=== PATIENT | female | born 1940 | race Caucasian/White ===

== ENCOUNTER 2016-12-24 18:56 | Inpatient (IN) | payer OTHER, MEDICARE ==
[~2016-12-24] VITALS: Ht 167.6 cm; Wt 69.4 kg
--- NOTE | 2016-12-24 20:27 | ED GENERAL ADULT ---
History of Present Illness General Chief Complaint: General Adult Stated Complaint: AGUSTINA ARIAS FOR ABNORMAL LABS Source: patient Exam Limitations: no limitations Vital Signs & Intake/Output Vital Signs & Intake/Output Vital Signs Date Time Temp Pulse Resp B/P Pulse O2 O2 Flow FiO2 Ox Delivery Rate 12/24 2305 97.6 90 18 124/60 96 Room Air 12/241 97 Room Air 12/24 2129 99.4 87 18 111/57 97 Room Air 12/242 97.9 98 18 110/66 96 Room Air Allergies Coded Allergies: azithromycin (From ZITHROMAX) (Severe, LIVER 12/24/16) Uncoded Allergies: IV CONTRAST (Severe, SIMON 12/24/16) Triage Note: STATES THAT SHE WENT TO DR LAST WEEK DUE TO COLD SYMPTOMS. COMPLAINS OF FEELING VERY TIRED, HAD BLOOD WORK AND THEY CALLED HER TONIGHT AND TOLD HER TO COME TO ER DUE TO HEMOGLOBIN 4 AND WBC 49243. PT DENIES BLOOD IN STOOL, Triage Nurses Notes Reviewed? yes Onset: Abrupt Duration: day(s):, week(s):, constant Timing: recent history Injury Environment: home No Modifying Factors: none HPI: 76-year-old female comes into emergency room for further evaluation after being sent in by her primary care doctor for abnormal labs. Patient reports that she saw her primary care doctor for runny nose and congestion last week. She ended up getting outpatient blood work which showed that she was severely anemic and her white blood cell count was high. Patient reports that she just been feeling generally weak and tired. Denies any focal pain of chest pain shortness of breath abdominal pain. Patient does admit to having some heart palpitations. Patient reports that she's been anemic in the past but her hemoglobin is always been around 9. Denies any blood in her stool. Denies any fever chills vomiting. Denies any other associated symptoms. (ELIANA CRAFT,MARCO) Reconcile Medications Iron,Carbonyl (Feosol) 45 MG TABLET 65 MG PO D BLOOD HEALTH (Reported) (MORENA QUINTANA,TERRELL Koo) Past History Travel History Traveled to [place] past 21 day No Medical History Any Pertinent Medical History? 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 No (MARCO WOODY) Review of Systems Review of Systems Constitutional: Reports: see HPI. EENTM: Reports: no symptoms. Respiratory: Reports: no symptoms. Cardiovascular: Reports: see HPI. GI: Reports: no symptoms. Genitourinary: Reports: no symptoms. Musculoskeletal: Reports: no symptoms. Skin: Reports: no symptoms. Neurological/Psychological: Reports: no symptoms. Hematologic/Endocrine: Reports: no symptoms. Immunologic/Allergic: Reports: no symptoms. All Other Systems: Reviewed and Negative (MARCO WOODY) Physical Exam Physical Exam General Appearance: well developed/nourished, no apparent distress, alert, awake Head: atraumatic, normal appearance Eyes: Bilateral: normal appearance, EOMI. Ears, Nose, Throat: normal pharynx, normal ENT inspection, hearing grossly normal Neck: normal inspection, full range of motion Respiratory: normal breath sounds, no respiratory distress Cardiovascular: regular rate/rhythm Gastrointestinal: soft Back: normal inspection, normal range of motion Extremities: normal inspection Neurologic/Psych: awake, alert, oriented x 3, normal gait, normal mood/affect Skin: intact, normal color Core Measures ACS in differential dx? No CVA/TIA Diagnosis: No Severe Sepsis Present: No Septic Shock Present: No (MARCO WOODY) Progress Differential Diagnoses I considered the following diagnoses in my evaluation of the patient: Iron deficiency anemia, anemia chronic disease, aplastic anemia, GI bleed, electrolyte imbalance, thyroid dysfunction, Plan of Care: Orders Procedure Date/time Status TROPONIN LEVEL 12/25 599 Active CBC WITHOUT DIFFERENTIAL 12/25 599 Active BASIC ELECTROLYTES PLUS BUN&CR 12/25 599 Active Regular Diet 12/24 D Active EKG 12/24 2355 Active Pathway - chart 12/24 2318 Active Pathway - chart 12/24 2317 Active House Staff 12/24 2317 Active Code Status 12/24 2317 Active Patient Data 12/24 2223 Active BLOOD PRODUCT PICKUP 12/24 2201 Active URINALYSIS 12/24 2200 Complete Intake & Output 12/24 2158 Active LEUKOCYTE POOR (PACKED CELLS) 12/24 2145 Active Admit to inpatient 12/24 2144 Active Add-on Test (ER Only) 12/24 2106 Active Add-on Test (ER Only) 12/24 2049 Active TROPONIN LEVEL 12/24 2049 Active MAGNESIUM 12/24 2049 Active FOLIC ACID 12/24 2049 Active SERUM IRON 12/24 2049 Active VITAMIN B12 12/24 2049 Active Add-on Test (ER Only) 12/24 2048 Active EKG 12/24 2026 Active THYROID STIMULATING HORMONE 12/24 1929 Active TOTAL IRON BINDING CAPACITY 12/24 1929 Active RETICULOCYTE COUNT 12/24 1929 Complete PARTIAL THROMBOPLASTIN TIME 12/24 1929 Complete PROTHROMBIN TIME 12/24 1929 Complete HAPTOGLOBIN 12/24 1929 Active FERRITIN 12/24 1929 Active COMPREHENSIVE METABOLIC PANEL 12/24 1929 Active CBC WITHOUT DIFFERENTIAL 12/24 1929 Complete TYPE & SCREEN (NOT X-MATCH) 12/24 1929 Active Lab Add-on Test 12/24 UNK Active VTE Mechanical Prophylaxis 12/24 UNK Active Hemoccult 12/24 UNK Active EKG 12/24 UNK Active ECHOCARDIOGRAM 12/24 UNK Active Current Medications Sig/Noreen Start time Last Medication Dose Stop Time Status Admin Enoxaparin Sodium 30 MG DAILY 12/25 1000 CANr (Lovenox) Acetaminophen 650 MG Q6P PRN 12/24 2330 UNVr (Tylenol) Laboratory Tests 12/24/162199: Urine Color STRAW, Urine Clarity CLEAR, Urine pH 6.0, Ur Specific [place] <= 1.005, Urine Protein NEG, Urine Ketones NEG, Urine Nitrite NEG, Urine Bilirubin NEG, Urine Urobilinogen 0.2, Ur Leukocyte Esterase SMALL H, Ur Microscopic SEDIMENT EXAMINED, Urine RBC RARE, Urine WBC 1-3 H, Ur Epithelial Cells RARE, Urine Hemoglobin NEG, Urine Glucose NEG 12/24/162049: Haptoglobin Pending 12/24/162049: Anion Gap 8, Estimated GFR > 60, BUN/Creatinine Ratio 25.0, Glucose 97, Calcium 10.5 H, Magnesium 2.2, Iron 205 H, TIBC 359, Ferritin 225.0, Total Bilirubin 1.1, AST 25, ALT 31, Alkaline Phosphatase 56, Troponin I < 0.01, Total Protein 6.5, Albumin 4.4, Globulin 2.1, Albumin/Globulin Ratio 2.1, Vitamin B12 Pending, Folate Pending, TSH 1.780, PT 11.6, INR 1.11, APTT 20 L, CBC w Diff MAN DIFF ORDERED, RBC 1.92 L, MCV 74.6 L, MCH 23.4 L, RDW 20.6 H, MPV 8.2, Segmented Neutrophils 21 L, Band Neutrophils 2, Lymphocytes 69 H, Monocytes 6, Basophils 1, Metamyelocytes 1, Nucleated RBCs 4 H, Platelet Estimate ADEQUATE, Hypochromic-Microcytic 1+, Poikilocytosis 2+, Basophilic Stippling RARE, Anisocytosis 2+, Microcytic Cells 1+, Target Cells 1+, Ovalocytes 1+, [place] Cells FEW, PUBS MCHC 31.4 L, Retic Count 1.67, Fld Total RBCs Counted 100 Initial ED EKG: normal intervals, normal p-waves, normal sinus rhythm, rate (95) , pvcs Comments: 12/24/2016 10:23:26 PM Patient reports that she had a rectal exam performed by her doctor today on a card which showed no blood. Patient does not want to repeat rectal exam here. (MARCO WOODY) Departure Departure Disposition: STILL A PATIENT Condition: Stable Clinical Impression Primary Impression: Symptomatic anemia Referrals: ESSENCE ARIAS MD (PCP/Family) Departure Forms: Customer Survey General Discharge Information Admission Note Spoke With: WINNIE THORNTON MD Documentation of Exam: Documentation of any treatments & extenuating circumstances including Concerns Regarding Discharge (functional status, medication knowledge or non-compliance, living conditions, etc.) that warrant an admission rather than observation: Patient will require blood transfusion. Possibly hematology consultation and GI consultation. Patient would do poorly as an outpatient. (MARCO WOODY) PA/TREE WARDEN Co-Sign Statement Statement: ED Attending supervision documentation- [X] I saw and evaluated the patient. I have also reviewed all the pertinent lab results and diagnostic results. I agree with the findings and the plan of care as documented in the PA's/TREE WARDEN's documentation. [X] I have reviewed the ED Record and agree with the PA's/TREE WARDEN's documentation. [] Additions or exceptions (if any) to the PAs/TREE WARDEN's note and plan are summarized below: [] (MORENA QUINTANA,TERRELL Koo) Critical Care Note Critical Care Note Critical Care Time: non-applicable (ELIANA CRAFTMARCO)
[2016-12-24 21:11] LABS: MEAN CORPUSCULAR HGB 23.4 PG (27.0-31.0); MEAN CORPUSCULAR HGB CONC 31.4 G/DL (33.0-37.0); MEAN CORPUSCULAR VOLUME 74.6 FL (81.0-99.0); MEAN PLATELET VOLUME 8.2 FL (7.4-10.4); PLATELET COUNT 304 /CUMM (130-400); RBC DISTRIBUTION WIDTH 20.6 % (11.5-14.5); RED BLOOD CELL CT 1.92 /CUMM (4.20-5.40); WHITE BLOOD CELL COUNT 15.9 /CUMM (4.8-10.8)
[2016-12-24 21:17] LABS: HEMATOCRIT 14.3 % (37-47)
[2016-12-24 21:19] LABS: PT 11.6 SEC (9.4-12.5); PTT 20 SEC (25-37)
--- NOTE | 2016-12-24 22:31 | History & Physical ---
DENNIS QUINTANA,[facility] 12/24/16 2230: General Information and HPI MD Statement: I have seen and personally examined OPPER,JONO and documented this H&P. The patient is a 76 year old F who presented with a patient stated chief complaint of weakness and routine blood work reveling low H/H. Source of Information: patient, family, old records Exam Limitations: no limitations History of Present Illness: 76-year-old female with past medical history of pericarditis and history of GI polyps presented to the emergency department on 12/24/2016 after routine blood work as an outpatient revealed that the patient was profoundly anemic. The patient states that over the last 2 weeks she has been hypotensive and has had recent changes to her antihypertensives. Her PCP recently informed her that she should stop taking her ARB and continue with hydralazine as needed. Over last 48 hours the patient states that she has felt hypotensive and has held all medications. This morning the patient presented at a walk-in clinic and where she had some routine blood work done. This evening she received a call from [employer] informing her that she was anemic and needed her to come to the emergency department immediately. Patient denies any recent changes in weight, fever or chills, nausea, night sweats, jaundice. She reports no changes in her stool. The Patient does not report any heavy NSAID use. She also states that she may have a family history of Beta Thalasemia, although has never been symptomatic. Allergies/Medications Allergies: Coded Allergies: azithromycin (From ZITHROMAX) (Severe, LIVER 12/24/16) Uncoded Allergies: IV CONTRAST (Severe, SIMON 12/24/16) Home Med list Candesartan Cilexetil 8 MG TABLET 1 TAB PO DAILY HTN (Reported) Hydrochlorothiazide 12.5 MG CAPSULE 1 CAP PO DAILY HTN (Reported) Iron,Carbonyl (Feosol) 45 MG TABLET 65 MG PO D BLOOD HEALTH (Reported) Compliance With Home Meds: GOOD Past History Travel History Traveled to [place] past 21 day No Medical History Neurological: NONE EENT: NONE Cardiovascular: hypertension Respiratory: NONE Gastrointestinal: NONE Hepatic: NONE Renal: NONE Musculoskeletal: NONE Psychiatric: NONE Endocrine: NONE Blood Disorders: NONE Cancer(s): NONE 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 Home Who Do You Live With? spouse Services at Home: None Primary Language: Macanese Smoking Status: Never Smoked ETOH Use: denies use Illicit Drug Use: denies illicit drug use Functional Ability ADLs Independent: dressing, eating, toileting, bathing. Ambulation: independent IADLs Independent: shopping, housework, finances, food prep, telephone, transportation , medication admin. Review of Systems Review of Systems Constitutional: Reports: weakness. Denies: chills, diaphoresis, fever. Cardiovascular: Reports: peripheral edema. Denies: chest pain, edema, orthopena, palpitations, syncope. Respiratory: Denies: cough, hemoptysis, orthopnea, short of breath. GI: Denies: abdominal pain, bloating, constipation, diarrhea, distention. Genitourinary: Denies: dysuria, frequency, hematuria, hesitation. Musculoskeletal: Denies: back pain, gout, joint pain. Skin: Denies: change in skin color, change in hair/nails. Hematologic/Endocrine: Denies: bruising, bleeding, polyuria, polydipsia. Exam & Diagnostic Data Last 24 Hrs of Vital Signs/I&O Vital Signs Date Time Temp Pulse Resp B/P Pulse O2 O2 Flow FiO2 Ox Delivery Rate 12/24 2130 97 Room Air 12/24 2129 99.4 87 18 111/57 97 Room Air 12/24 1921 97.9 98 18 110/66 96 Room Air Physical Exam General Appearance Alert, Oriented X3, Cooperative, No Acute Distress HEENT PERRLA, Pale Mucous Membranes Neck Supple Lymphatic Axillary nl, Cervical nl Cardiovascular Normal S1, Normal S2, ?Flow Murmur Lungs Clear to Auscultation, Normal Air Movement Abdomen Normal Bowel Sounds, Soft, No Tenderness Neurological Normal Speech, Strength at 5/5 X4 Ext, Cranial Nerves 3-12 NL Extremities Edema 1+ Last 24 Hrs of Labs/Benny: Laboratory Tests 12/24/162199: Urine Color STRAW, Urine Clarity CLEAR, Urine pH 6.0, Ur Specific [place] <= 1.005, Urine Protein NEG, Urine Ketones NEG, Urine Nitrite NEG, Urine Bilirubin NEG, Urine Urobilinogen 0.2, Ur Leukocyte Esterase SMALL H, Ur Microscopic SEDIMENT EXAMINED, Urine RBC RARE, Urine WBC 1-3 H, Ur Epithelial Cells RARE, Urine Hemoglobin NEG, Urine Glucose NEG 12/24/162049: Haptoglobin Pending 12/24/162049: Anion Gap 8, Estimated GFR > 60, BUN/Creatinine Ratio 25.0, Glucose 97, Calcium 10.5 H, Magnesium Pending, Iron Pending, TIBC 359, Ferritin 225.0, Total Bilirubin 1.1, AST 25, ALT 31, Alkaline Phosphatase 56, Troponin I < 0.01, Total Protein 6.5, Albumin 4.4, Globulin 2.1, Albumin/Globulin Ratio 2.1, Vitamin B12 Pending, Folate Pending, TSH 1.780, PT 11.6, INR 1.11, APTT 20 L, CBC w Diff MAN DIFF ORDERED, RBC 1.92 L, MCV 74.6 L, MCH 23.4 L, RDW 20.6 H, MPV 8.2, Segmented Neutrophils 21 L, Band Neutrophils 2, Lymphocytes 69 H, Monocytes 6, Basophils 1, Metamyelocytes 1, Nucleated RBCs 4 H, Platelet Estimate ADEQUATE, Hypochromic-Microcytic 1+, Poikilocytosis 2+, Basophilic Stippling RARE, Anisocytosis 2+, Microcytic Cells 1+, Target Cells 1+, Ovalocytes 1+, [place] Cells FEW, PUBS MCHC 31.4 L, Retic Count 1.67, Fld Total RBCs Counted 100 Diagnostic Data EKG Results NSR Rate 95. Qtc [address] changes Assessment/Plan Assessment: This is a 76-year-old patient who presented to the emergency department after routine blood work elevated showed patient had evidence of profound anemia. Symptomatic Anemia Admit the patient to general medicine floor. Maintain hemoglobin, Above 7 transfuse 2 units PRBCs. Hematology consult in a.m. Avoid all Nonsteroidal anti-inflammatories GI consult, if stool + for guaiac, patient will need to be scoped. Guaiac all stools Peripheral blood smear If in patient work up is non contributory, patient will likely need bone marrow biopsy as outpatient. Hypercalcemia Upon admission patient's calcium was 10.5. Repeat BEP in a.m. if patient' calcium elevated, conitnue IV fluids PTH, Ionized Calcium, 25, Hydroxyvitamine and 1,25 Dihydroxyvitamin D. Obtain endocrinology consult Rule out demand ischemia Initial EKG and troponins within normal limits. Repeat EKG and troponin in a.m.6.00 am If troponin increase consider cardiology consult. History of hypertension. Supplement patient with IV fluids if patient becomes hypotensive. Patient will likely need to follow-up with primary care physician regarding adequate antihypertensive dose. Leukocytosis Likely related to stress demyelination. Repeat CBC in AM If temperature exceeds 101.4 consider panculture. ADALGISA Likely related to dehydration encourage by mouth intake. Monitor Bun creatinine in a.m. Code Full code DVT prophylaxis ALPS Diet Heart healthy As Ranked By This Provider Problem List: 1. Symptomatic anemia Core Measures/Miscellaneous Acute Coronary Syndrome ACS Diagnosis: No Cerebrovascular Accident CVA/TIA Diagnosis: No Congestive Heart Failure CHF Diagnosis: No Venous Thromboembolism VTE Risk Factors: Age > 40 VTE Prophylaxis Ordered Inpt: Mechanical (ALPS/TEDS) No Mech VTE prophylaxis d/t: No contraindications No VTE Pharm Prophylaxis d/t: Medical contraindication (Anemic) VTE Diagnosis: No VTE Type: NONE VTE Confirmed by (Test): NONE Severe Sepsis Severe Sepsis Present: No Septic Shock Septic Shock Present: No Miscellaneous Documentation Attending Case Discussed With: WINNIE THORNTON MD Primary Care Physician: ESSENCE ARIAS MD Patient sees these Specialists Dr Arias Level of Patient Care: General Medicine YAZMIN THORNTON MD 12/24/16 2232: Attending MD Review Statement Attending Statement Attending MD Statement: examined this patient, discuss w/resident/PA/DEPARTMENT CHAIR, agreed w/resident/PA/DEPARTMENT CHAIR Attending Assessment/Plan: 76 yo F with h/o HTN, iron deficiency anemia, pericarditis, is sent in by PCP for anemia. Patient had seen her PCP 1 week ago for upper respiratory symptoms associated with weakness, fatigue and palpitations. She had blood work, results of which came back today. Denies chest pain or dyspnea. Denies melena, hematemesis, BRBPR or hematuria. No NSAID use. Last colonoscopy (2009) Dr. Shaikh: benign hyperplastic polyp, diverticulosis and external hemorrhoids. Of note, she has been taken off her BP meds as she was hypotensive (90/60) during one of her routine check up at the PCP's office. Family history of beta thalassemia minor (daughter). Vitals stable. Exam: Pallor+, Chest b/l clear, Heart S1S2 regular, systolic murmur+. Extremities 1+ pedal edema. Labs: WBC 15.9 no bands, H/H 4.5/14.3 (9.8/ 32.18 May 2016), microcytosis, BUN 20, Ca 10.5, trop neg, UA neg. EKG: SR, PVCs , Qtc 478. 1. Acute symptomatic anemia, ?iron deficiency anemia vs. Blood loss (Rectal exam at PCP's office guaiac negative) vs. Thalassemia. Assess for hemolysis. Check iron studies, B12 and folic acid. Check TSH. Type and crossmatch, transfuse to keep Hb > 7.0. Guaiac all stools. Hematology consult. Will obtain GI consult ( Dr. Shaikh). Serial EKG and troponin to rule out ACS. Obtain echo. Patient has been evaluated by Dr. Chambers 2 yrs ago with echo/stress test that were negative. 2. Leukocytosis likely reactive. No focal symptoms of infection. Monitor off antibiotics for now. DVT ppx Alps. Full code. ANDERSON DANIELS 12/24/16 2342: Resident Review Statement Resident Statement: examined this patient, discussed with collector of internal revenue, agreed with collector of internal revenue, discussed with family, reviewed EMR data (avail), discussed with nursing , discussed with case mgmt, reviewed images, amended to note Other Findings: HPI 76-year-old woman presented to the emergency room reporting symptomatic anemia, and pending of fatigue malaise and palpitation. For the past few weeks patient increasingly became pale, fatigue, and had diminished exercise tolerance and also had episodes of palpitation and lightheadedness. She has a past medical history of hypertension and iron deficiency anemia not on supplementation. Last week for the aforementioned complaints, visited the walk-in clinic in [place] and was found to be hypotensive 90s over 60s and her antihypertensive medication was stopped. Since symptoms did not improved and she visited her primary care physician and ended up getting a blood work done as an outpatient and found to be profoundly anemic and sent to emergency room for further workup. During the recent past month patient denies any weight loss, change in appetite, fever, chills, night sweats, and jaundice. She is not report any blood in her stool. Denies any history/symptoms of bleeding GI ulcer or overt blood loss. Lives with her boyfriend, lifetime nonsmoker denies EtOH and illicit drugs. Denies use of [id number] aspirin and NSAID. Positive family history of beta thalasemia minor (Mediterranean trait), which was never officially diagnosed for her however the daughter carries a diagnosis. Review of system: Complains of palpitation and generalized malaise and fatigue. Denies any chest pain lightheadedness dizziness shortness of breath, nausea vomiting diarrhea and GI/ symptoms. Physical exam: HEEN: No lymphadenopathy, sclera pale; CV: faint 2 Right IC early ejection murmur; lungs are clear; ABD: Soft, liver span 2 cm below the intercostal margin, spleen was not palpated; extremities: 1+ bilateral pedal pitting edema. Pertinent Data EKG: Sinus rhythm, rate 87, normal axis, no pathologic ST, T segment change VS: RR 18, blood pressure 111/57, saturation 97% in room WBC 15.9 no bandemia , hemoglobin 4.5 /hematocrit 14.3 , MCV 74 /platelets 304 , sodium 140 potassium 4.3 , calcium 10.5 , Trop< 0.01; ferritin 225, TIBC 359, iron 205, LFT and total bilirubin within normal limits, B12 and folate: Pending TSH 1.780 Assessment and plan 76-year-old woman was admitted for severe symptomatic anemia. #1 Symptomatic anemia Discussion: Patient has symptomatic anemia with low MCV. The most common causes in this category are anemia of blood loss which could be caused by bleeding GI ulcers in the setting of chronic NSAID use or hemorrhoidal disease( not on NSAIDs or aspirin, her hemorrhoids has not been active since 2009). Iron deficiency anemia and thalasemia are other common causes in this category. She is not on iron supplementation, however ferritin and total iron and TIBC are within normal limits or slightly elevated. Hypothyroidism, alcohol, B12 and folic deficiency are highly unlikely for this patient. Plan -Admit to general medical the medical floor -Transfuse 2 units of -Target hemoglobin 7 hematocrit 24 -Consult hematology in the a.m. -Assess peripheral blood smear-thalassemia -Follow folate and B12 level -Guiac all the stool samples -Avoid NSAIDs and aspirin -Routine GI consult for the a.m. -Obtain echo to assess the effects of anemia on the heart -First set of troponin was negative; follow troponin and EKG at 6 AM -repeat labs in the a.m. #2 Hx of hypertension: Patient's antihypertensive medication was stopped due to her recent episodes of hypotension is possibly due to symptomatic anemia. - holding antihypertensive medication #3 leukocytosis without source of infection: Most possibly reactive for chronic. -Watch off antibiotics -If he spikes fever obtained chest x-ray UA urine culture and blood culture #4 elevated BUN/creatinine ratio: Was possibly due to generalized malaise and decreased by mouth intake -Encourage fluid by mouth intake Mild pain pathway Alps FC
--- NOTE | 2016-12-24 22:55 | Admission Certification ---
Admission Certification Certification Statement - As attending physician, I certify that at the time of - admission, based on clinical presentation, severity of - symptoms, need for further diagnostic testing and - therapeutic interventions, and risk of adverse outcomes - without in-hospital treatment, in my clinical assessment, - this patient requires an acute hospital stay for a minimum - of two nights or longer. I have also considered psychsocial - factors such as support system, advanced age, financial - issues, cognitive issues, and failed out-patient treatments, - past re-admission history, safety of patient, and lack of - compliance as applicable. Specific rationale supporting this admission is: Acute symptomatic anemia.
[2016-12-24] MEDS ORDERED: FEOSOL45 M1 PO (23:08)
[2016-12-24] MEDS ORDERED: HYDROCHLOROTH12.5 M3 PO (23:57)
[2016-12-24] MEDS ORDERED: CANDESARTAN CILE8 M1 PO (23:57)
[2016-12-25 00:55] VITALS: BP 96/60
[2016-12-25 03:35] VITALS: BP 180/86
--- NOTE | 2016-12-25 06:58 | PN- Housestaff ---
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 She endorses hunger after being NPO for abdominal US. Patient offers no complaints, denying palpitations, shortness of breath, weakness or lethargy. Review of Systems Constitutional: Denies: chills, fever, malaise. EENTM: Denies: visual changes, hearing changes, throat pain. Cardiovascular: Denies: chest pain, palpitations, syncope. Respiratory: Denies: short of breath. Gastrointestinal: Denies: abdominal pain, melena, nausea, bloody stool, vomiting. Genitourinary: Denies: hematuria. Musculoskeletal: Denies: back pain. Skin: Denies: lesions. Neurological/Psychological: Denies: confusion, headache. Hematologic/Endocrine: Denies: bruising, bleeding. Objective Last 24 Hrs of Vital Signs/I&O Vital Signs Date Time Temp Pulse Resp B/P Pulse O2 O2 Flow FiO2 Ox Delivery Rate 12/25 0738 98.6 78 20 104/64 93 12/25 0055 99.8 86 20 96/60 95 Room Air 12/24 2305 97.6 90 18 124/60 96 Room Air 12/24 2131 97 Room Air 12/24 2130 99.4 87 18 111/57 97 Room Air 12/24 1922 97.9 98 18 110/66 96 Room Air Intake & Output 12/25 1600 08 0800 12/25 0000 Intake Total 1160 Output Total 1050 350 Balance 110 -350 Intake, Blood 700 Product Intake, IV 60 Intake, Oral 400 Output, Urine 1050 350 Patient 153 lb 153 lb Weight Physical Exam General Appearance: Alert, Oriented X3, Cooperative, No Acute Distress Skin: No Significant Lesion, Pallor HEENT: Atraumatic, Mucous Membr. moist/pink Neck: Supple, No JVD Lymphatic: + left inguinal lymph node palpable, + right axillary lymph node Cardiovascular: Regular Rate, Normal S1, Normal S2, + systolic murmur at mitral area Lungs: Clear to Auscultation, Normal Air Movement Abdomen: Normal Bowel Sounds, Soft, No Tenderness, + splenomegaly noted on examination Neurological: Normal Gait, Normal Speech, Strength at 5/5 X4 Ext, Normal Tone Extremities: No Clubbing, No Cyanosis, No Edema Vascular: Pulses Symmetrical Current Medications: Current Medications Sig/Noreen Start time Last Medication Dose Route Stop Time Status Admin Acetaminophen 650 MG Q6P PRN 12/24 2330 AC PO Enoxaparin Sodium 30 MG DAILY 12/25 1000 CAN SC Sodium Chloride 1,000 ML BOLUS ONE 12/24 2114 DC 12/24 IV 12/24 Last 24 Hrs of Lab/Benny Results Last 24 Hrs of Labs/Mics: Laboratory Tests 12/25/16 0620: Anion Gap 6, Estimated GFR > 60, BUN/Creatinine Ratio 18.8, Uric Acid 6.1, Calcium 9.5, Lactate Dehydrogenase 306 L, Troponin I < 0.01, CBC w Diff MAN DIFF ORDERED, RBC 2.19 L, MCV 78.7 L, MCH 26.2 L, RDW 22.2 H, MPV 9.3, Segmented Neutrophils 18 L, Band Neutrophils 1, Lymphocytes 76 H, Monocytes 3, Basophils 2, Platelet Estimate ADEQUATE, Polychromasia 1+, Hypochromic- Microcytic 1+, Poikilocytosis 3+, Anisocytosis 2+, Ovalocytes 2+, Schistocytes 1 +, PUBS MCHC 33.3, Hepatitis A IgM Ab NONREACTIVE, Hep Bs Antigen NONREACTIVE, Hep B Core IgM Ab Conf NONREACTIVE, Hepatitis C Antibody NONREACTIVE, HIV 1&2 Ab Western Blot NONREACTIVE 12/24/162199: Urine Color STRAW, Urine Clarity CLEAR, Urine pH 6.0, Ur Specific [place] <= 1.005, Urine Protein NEG, Urine Ketones NEG, Urine Nitrite NEG, Urine Bilirubin NEG, Urine Urobilinogen 0.2, Ur Leukocyte Esterase SMALL H, Ur Microscopic SEDIMENT EXAMINED, Urine RBC RARE, Urine WBC 1-3 H, Ur Epithelial Cells RARE, Urine Hemoglobin NEG, Urine Glucose NEG 12/24/162049: Haptoglobin Pending 12/24/162049: Anion Gap 8, Estimated GFR > 60, BUN/Creatinine Ratio 25.0, Glucose 97, Calcium 10.5 H, Magnesium 2.2, Iron 205 H, TIBC 359, Ferritin 225.0, Total Bilirubin 1.1, AST 25, ALT 31, Alkaline Phosphatase 56, Troponin I < 0.01, Total Protein 6.5, Albumin 4.4, Globulin 2.1, Albumin/Globulin Ratio 2.1, Vitamin B12 545, Folate 15.0, TSH 1.780, PT 11.6, INR 1.11, APTT 20 L, CBC w Diff MAN DIFF ORDERED, RBC 1.92 L, MCV 74.6 L, MCH 23.4 L, RDW 20.6 H, MPV 8.2, Segmented Neutrophils 21 L, Band Neutrophils 2, Lymphocytes 69 H, Monocytes 6, Basophils 1, Metamyelocytes 1, Nucleated RBCs 4 H, Platelet Estimate ADEQUATE, Hypochromic-Microcytic 1+, Poikilocytosis 2+, Basophilic Stippling RARE, Anisocytosis 2+, Microcytic Cells 1+, Target Cells 1+, Ovalocytes 1+, [place] Cells FEW, PUBS MCHC 31.4 L, Retic Count 1.67, Fld Total RBCs Counted 100 Orders Miscellaneous Findings: Abdominal US: IMPRESSION: 1. Splenomegaly spleen measuring 19.2 cm longitudinally as compared to 15.3 cm on prior MRI scan. 2. Liver normal in size and unremarkable in appearance on ultrasound. Previously seen subcapsular mass in hepatic segment 7 is not appreciated on this exam. 3. Large calcified gallstone within the gallbladder, unchanged. Gallbladder otherwise unremarkable. No evidence of biliary dilatation. 4. Enlarging cyst in lower pole of right kidney. Assessment/Plan Assessment: Ms. Gamboa is a pleasant 76 year old female with PMH iron deficiency anemia, lyme disease, HTN and pericarditis as well as family history of beta-thalasemia minor in her daughter who presented to [facility] on 12/24/16 after routine blood work done by her primary care physician showed acute anemia. Patient endorsed a recent 2 week history of hypotension, for which she was recently taken off her antihypertensives. Review of systems is significant for weakness, lethargy and palpiations. At time of admission,s he denies melena, hematemesis, bright red blood per rectum or hematuria as well as NSAID use. In the ED: Vital signs showed T 97.9, HR 98, RR 18, BP 110/66 and O2 saturation of 96% on RA. Labs were significant for WBC 15.9, 2 bands, 69% lymphocytes, H&H 4.5/14.3, Plt 304, and normal BEP except for slight increase in BUN to 20. Ca noted to be elevated to 10.5, Fe 205, TIBC 359, Ferritin 225, troponin <0.01, Vit B12 545, Folate 15 and IN 1.11. EKG showed NSR with HR 95, QTC 478, multiple PVCs and no ST changes. Patient is admitted to the general medicine floor and the following is the management: 1. Acute on chronic anemia * No obvious bleeding and asymptomatic (with negative guiac), likely a gradual process with recent increase in severity of anemia * H&H on admission of 4.5/14.3, leukocytosis of 15.9 * Demand ischemia ruled out with troponin <0.01 x [address] changes on EKG * PBS showed elliptocytes, target cells, tear drops, microcytosis, increased lymphocytes, few smudge cells, few nucleated RBC, and normal platelets. * Patient is s/p 2 U PRBCs that brought H&H up to 5.7/17.2, so we have ordered another 2 U PRBCs and will f/u post-transfusion with CBC at 330pm * Repeat CBC in AM * Hematology/oncology consult appreciated, suggested ordering flow cytometry, SPEP, LDH, Merline, abdominal US, and viral studies (EBV, HIV, Parvovirus B19 and hepatitis) which has been done, f/u results * PET scan and bone marrow biopsy to be done as an outpatient as patient will follow up with Dr. Altagracia MD for further management of likely CLL 2. Hypercalcemia * Ca on admission of 10.5 * Patient s/p 1 IV bolus NS * Ca today WNL, no need to trend 3. HTN * Resume antihypertensives once patient stabilized FULL CODE DVTP: Alps Heart Healthy diet Mild pain pathway Problem List: 1. Symptomatic anemia 2. Leukocytosis Pain Ratin Pain Location: n/a Pain Goal: Remain pain free Pain Plan: Mild pain pathways. Tomorrow's Labs & Rationales: CBC (monitor H&H).
[2016-12-25 08:21] LABS: MEAN CORPUSCULAR HGB CONC 33.3 G/DL (33.0-37.0); MEAN PLATELET VOLUME 9.3 FL (7.4-10.4); PLATELET COUNT 224 /CUMM (130-400); RBC DISTRIBUTION WIDTH 22.2 % (11.5-14.5); RED BLOOD CELL CT 2.19 /CUMM (4.20-5.40); WHITE BLOOD CELL COUNT 17.7 /CUMM (4.8-10.8)
[2016-12-25 08:32] LABS: HEMATOCRIT 17.2 % (37-47); MEAN CORPUSCULAR HGB 26.2 PG (27.0-31.0); MEAN CORPUSCULAR VOLUME 78.7 FL (81.0-99.0)
[2016-12-25 08:38] VITALS: BP 104/64
--- NOTE | 2016-12-25 09:29 | Cons- Hematology ---
General Information and HPI Consulting Request Date of Consult: 12/25/16 Requested By: HILLARY QUINTANA,WINNIE Reason for Consult: anemia Source of Information: patient, old records Exam Limitations: no limitations History of Present Illness: Ms. Gamboa is a 76-year-old female with history of beta thalassemia trait, hypertension, pericarditis who presents to ED with severe anemia. She was seen by her PCP and had blood work done demonstrating hemoglobin of 4. She reports some fatigue recently. On presentation, her hemoglobin was 4.5. Her WBC was 15.9. Platelet count was normal at 309. She was afebrile. Her blood pressure was normal. She was mostly asymptomatic. She did not feeling more fatigue recently. She has some sinus congestion with some myalgia. She states she has not been feeling "right" since September when she had her influenza vaccination. She has not had weight loss. She denies any bleeding including melena, hematochezia, vaginal, hematemesis, or hemoptysis. She denies any bruising. She does not some swelling in her lower extremity when her PCP took her off her ARB blood pressure medication. She got 2 units of pRBC yesterday. She feels better now. Allergies/Medications Allergies: Coded Allergies: azithromycin (From ZITHROMAX) (Severe, LIVER 12/24/16) Uncoded Allergies: IV CONTRAST (Severe, SIMON 12/24/16) Home Med List: Candesartan Cilexetil 8 MG TABLET 1 TAB PO DAILY HTN (Reported) Hydrochlorothiazide 12.5 MG CAPSULE 1 CAP PO DAILY HTN (Reported) Iron,Carbonyl (Feosol) 45 MG TABLET 65 MG PO D BLOOD HEALTH (Reported) Current Medications: Current Medications Sig/Noreen Start time Last Medication Dose Route Stop Time Status Admin Acetaminophen 650 MG Q6P PRN 12/24 2330 AC PO Enoxaparin Sodium 30 MG DAILY 12/25 1000 CAN SC Sodium Chloride 1,000 ML BOLUS ONE 12/24 2114 DC 12/24 IV 12/24 Review of Systems Review of Systems Constitutional: Denies: chills, fever, malaise, weakness. EENTM: Denies: epistaxis. Cardiovascular: Reports: palpitations. Denies: chest pain, edema, syncope. Respiratory: Denies: hemoptysis, short of breath, wheezing. GI: Denies: abdominal pain, diarrhea, melena, nausea, bloody stool, vomiting. Genitourinary: Denies: hematuria. Musculoskeletal: Denies: back pain. Skin: Denies: rash. Neurological/Psychological: Denies: anxiety, cognitive dysfunction, confusion, depressed. Hematologic/Endocrine: Denies: bruising, bleeding, polyuria. Immunologic/Allergic: Denies: lymphadenopathy. 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 Home Who Do You Live With? spouse Services at Home: None Primary Language: Italian Smoking Status: Never Smoked ETOH Use: denies use Illicit Drug Use: denies illicit drug use Functional Ability ADLs Independent: dressing, eating, toileting, bathing. Ambulation: independent IADLs Independent: shopping, housework, finances, food prep, telephone, transportation , medication admin. Exam & Diagnostic Data Vital Signs and I&O Vital Signs Date Time Temp Pulse Resp B/P Pulse O2 O2 Flow FiO2 Ox Delivery Rate 12/25 0838 98.6 78 20 104/64 93 12/25 0055 99.8 86 20 96/60 95 Room Air 12/24 2305 97.6 90 18 124/60 96 Room Air 12/24 2131 97 Room Air 12/24 2130 99.4 87 18 111/57 97 Room Air 12/24 1922 97.9 98 18 110/66 96 Room Air Intake & Output 12/25 1600 12/25 0800 12/25 0000 Intake Total 1160 Output Total 1050 350 Balance 110 -350 Intake, Blood 700 Product Intake, IV 60 Intake, Oral 400 Output, Urine 1050 350 Patient 69.4 kg 69.4 kg Weight Physical Exam General Appearance: well developed/nourished, no apparent distress, alert, awake , comfortable Head: atraumatic, normal appearance Eyes: Bilateral: PERRL. Ears, Nose, Throat: normal pharynx, normal ENT inspection, moist mucus membranes Neck: normal inspection, supple, no adenopathy Respiratory: normal breath sounds, chest non-tender, no respiratory distress Cardiovascular: regular rate/rhythm, murmur (systolic murmur best at apex) Gastrointestinal: normal bowel sounds, soft, non-tender, hepatomegaly (3 fingers below last rib), spleenomegaly Back: normal inspection Extremities: normal inspection, pedal edema (1+ lower extremity) Neurologic/Psych: awake, alert, oriented x 3 Skin: intact, normal color, warm/dry Lymphatic: right axilla with 1.5 cm lymph node, left inguinal small lymph node Last 48 Hours of Lab Results: Laboratory Tests 12/25 12/24 0620 2200 Chemistry Sodium (137 - 145 mmol/L) 142 Potassium (3.5 - 5.1 mmol/L) 3.9 Chloride (98 - 107 mmol/L) 109 H Carbon Dioxide (22 - 30 mmol/L) 27 Anion Gap (5 - 16) 6 BUN (7 - 17 mg/dL) 15 Creatinine (0.5 - 1.0 mg/dL) 0.8 Estimated GFR (>60 ml/min) > 60 BUN/Creatinine Ratio (7 - 25 %) 18.8 Uric Acid (2.5 - 6.2 mg/dL) 6.1 Calcium (8.4 - 10.2 mg/dL) 9.5 Lactate Dehydrogenase (313 - 618 U/L) 306 L Troponin I (< 0.11 ng/ml) < 0.01 Hematology CBC w Diff MAN DIFF ORDERED WBC (4.8 - 10.8 /CUMM) Pending RBC (4.20 - 5.40 /CUMM) Pending Hgb (12.0 - 16.0 G/DL) Pending Hct (37 - 47 %) Pending MCV (81.0 - 99.0 FL) Pending MCH (27.0 - 31.0 PG) Pending RDW (11.5 - 14.5 %) Pending Plt Count (130 - 400 /CUMM) Pending MPV (7.4 - 10.4 FL) Pending Gran % (42.2 - 75.2 %) Pending Lymphocytes % (20.5 - 51.1 %) Pending Monocytes % (1.7 - 9.3 %) Pending Eosinophils % (0 - 5 %) Pending Basophils % (0.0 - 2.0 %) Pending Absolute Granulocytes (1.4 - 6.5 /CUMM) Pending Segmented Neutrophils (42.2 - 75.2 %) Pending Absolute Lymphocytes (1.2 - 3.4 /CUMM) Pending Absolute Monocytes (0.10 - 0.60 /CUMM) Pending Absolute Eosinophils (0.0 - 0.7 /CUMM) Pending Absolute Basophils (0.0 - 0.2 /CUMM) Pending PUBS MCHC (33.0 - 37.0 G/DL) Pending Urines Urine Color (YEL,AMB,STR) STRAW Urine Clarity (CLEAR) CLEAR Urine pH (5.0 - 8.0) 6.0 Ur Specific [place] (1.001 - 1.035) <= 1.005 Urine Protein (NEG,<30 MG/DL) NEG Urine Ketones (NEG) NEG Urine Nitrite (NEG) NEG Urine Bilirubin (NEG) NEG Urine Urobilinogen (0.1 - 1.0 EU/dl) 0.2 Ur Leukocyte Esterase (NEG) SMALL H Ur Microscopic SEDIMENT EXAMINED Urine RBC (0 - 5 /HPF) RARE Urine WBC (0 - 2 /HPF) 1-3 H Ur Epithelial Cells (NONE,FEW) RARE Urine Hemoglobin (NEG) NEG Urine Glucose (N MG/DL) NEG 12/24 Chemistry Sodium (137 - 145 mmol/L) 140 Potassium (3.5 - 5.1 mmol/L) 4.3 Chloride (98 - 107 mmol/L) 103 Carbon Dioxide (22 - 30 mmol/L) 28 Anion Gap (5 - 16) 8 BUN (7 - 17 mg/dL) 20 H Creatinine (0.5 - 1.0 mg/dL) 0.8 Estimated GFR (>60 ml/min) > 60 BUN/Creatinine Ratio (7 - 25 %) 25.0 Glucose (65 - 99 mg/dL) 97 Calcium (8.4 - 10.2 mg/dL) 10.5 H Magnesium (1.6 - 2.3 mg/dL) 2.2 Iron (37 - 170 ug/dL) 205 H TIBC (265 - 497 ug/dL) 359 Ferritin (11.1 - 264 ng/mL) 225.0 Total Bilirubin (0.2 - 1.3 mg/dL) 1.1 AST (14 - 36 U/L) 25 ALT (9 - 52 U/L) 31 Alkaline Phosphatase (<127 U/L) 56 Troponin I (< 0.11 ng/ml) < 0.01 Total Protein (6.3 - 8.2 g/dL) 6.5 Albumin (3.5 - 5.0 g/dL) 4.4 Globulin (1.9 - 4.2 gm/dL) 2.1 Albumin/Globulin Ratio (1.1 - 2.2 %) 2.1 Vitamin B12 (239 - 931 pg/mL) 545 Folate (2.76 - 20.0 ng/mL) 15.0 TSH (0.270 - 4.200 uIU/mL) 1.780 Coagulation PT (9.4 - 12.5 SEC) 11.6 INR (0.90 - 1.19) 1.11 APTT (25 - 37 SEC) 20 L Hematology CBC w Diff MAN DIFF ORDERED WBC (4.8 - 10.8 /CUMM) 15.9 H RBC (4.20 - 5.40 /CUMM) 1.92 L Hgb (12.0 - 16.0 G/DL) 4.5 *L Hct (37 - 47 %) 14.3 *L MCV (81.0 - 99.0 FL) 74.6 L MCH (27.0 - 31.0 PG) 23.4 L RDW (11.5 - 14.5 %) 20.6 H Plt Count (130 - 400 /CUMM) 304 MPV (7.4 - 10.4 FL) 8.2 Segmented Neutrophils (42.2 - 75.2 %) 21 L Band Neutrophils (0.0 - 5.0 %) 2 Lymphocytes (20.5 - 51.1 %) 69 H Monocytes (1.7 - 9.3 %) 6 Basophils (0.0 - 2.0 %) 1 Metamyelocytes (0.0 - 1.0 %) 1 Nucleated RBCs (0.0 - 0.0 /100WBC) 4 H Platelet Estimate (ADEQUATE) ADEQUATE Hypochromic-Microcytic 1+ Poikilocytosis 2+ Basophilic Stippling RARE Anisocytosis 2+ Microcytic Cells 1+ Target Cells 1+ Ovalocytes 1+ [place] Cells FEW PUBS MCHC (33.0 - 37.0 G/DL) 31.4 L Retic Count (0.5 - 2.0 %) 1.67 Haptoglobin Pending Other Body Source Fld Total RBCs Counted (%) 100 Assessment/Plan Assessment: Mr. Gamboa is a 76-year-old female with history of beta thalassemia, hypertension , Lyme disease, and pericarditis who presented with severe anemia. She has no obvious bleeding. She is mostly asymptomatic. This suggests a gradual process instead of an acute process. Her reticulocyte count is normal which would be inappropriate for her degree of anemia. Her peripheral smear was reviewed and noted numerous changes including elliptocytes, target cells, tear drops, microcytosis, increase lymphocytes, few smudge cells, few nucleated RBC, and normal platelets. This suggests an underlying marrow issues including CLL. It would be helpful to send for flow cytometry. She will need bone marrow evaluation which may be done as an outpatient. For now we can check SPEP, LDH, haptoglobin, and Merline. She is noted to have hepatosplenomegaly. She has some palpable lymph node in the right axilla and left inguinal. She will likely need PET scan as outpatient as she has allergy to CT contrast dye. Given her steroid currently may not be good as she may have lymphoma. Steroid may influence the diagnosis. US of the abdomen may be done to evaluate her organomegaly. She should have viral studies done including hepatitis, HIV, EBV, [id number]. Recommendations: 1. Follow up repeat CBC 2. Check flow cytometry on peripheral blood 3. Check SPEP 4. Check LDH 5. Check Merline 6. Ultrasound of the abdomen (liver and spleen) 7. PET scan (IV contrast allergy, ? lymphoma) 8. Will need bone marrow biopsy (can be done as outpatient) 9. Check viral studies: hepatitis, HIV, EBV, [id number] 10. Follow up as outpatient Problem List: 1. Symptomatic anemia 2. Leukocytosis Other Findings/Comments: Please call [phone] with any questions or concerns. Consult Acknowledgment - Thank you for your consult request.
--- NOTE | 2016-12-25 12:14 | ULTRASOUND REPORT ---
EXAMINATION: US ABDOMEN COMPLETE CLINICAL INFORMATION: Likely CLL with hepatosplenomegaly. COMPARISON: MRI scan of the abdomen dated 04/07/[address] scan of the abdomen and pelvis dated 03/29/2014. TECHNIQUE: Real-time imaging of the abdominal viscera. FINDINGS: PANCREAS: Normal. ABDOMINAL AORTA: The proximal segment is normal in caliber. INFERIOR VENA CAVA: Visualized portions are normal. LIVER: Normal. The liver demonstrates normal size, contour and echogenicity. The previously seen subcapsular T2 bright mass in hepatic segment 7 is not appreciated on this ultrasound. No focal hepatic lesion or intrahepatic biliary duct dilatation. GALLBLADDER: Gallbladder filled with a large echogenic shadowing gallstone, producing a wall echo shadow sign. Similar findings were seen previously. No obvious pericholecystic fluid or sonographic James's sign. COMMON BILE DUCT: Normal in caliber measuring 0.6 cm in diameter. RIGHT KIDNEY: In the lower pole of the right kidney, a 1.6 x 1.3 x 1.6 cm hypoechoic thin-walled avascular cyst is seen, previously measuring 0.9 cm in size. No hydronephrosis. No renal calculi or focal parenchymal lesions. The kidney measures 10.6 cm in maximum dimension. LEFT KIDNEY: Normal. No hydronephrosis. No renal calculi or focal parenchymal lesions. The kidney measures 11.6 cm in maximum dimension. SPLEEN: Enlarged. The spleen measures 19.2 cm in maximum dimension versus 15.3 cm on prior MRI scan. No focal splenic mass. FREE FLUID: None. IMPRESSION: 1. Splenomegaly spleen measuring 19.2 cm longitudinally as compared to 15.3 cm on prior MRI scan. 2. Liver normal in size and unremarkable in appearance on ultrasound. Previously seen subcapsular mass in hepatic segment 7 is not appreciated on this exam. 3. Large calcified gallstone within the gallbladder, unchanged. Gallbladder otherwise unremarkable. No evidence of biliary dilatation. 4. Enlarging cyst in lower pole of right kidney.
[2016-12-25 17:23] LABS: ABSOLUTE BASOPHIL COUNT 0.3 /CUMM (0.0-0.2); ABSOLUTE EOSINOPHIL COUNT 0 /CUMM (0.0-0.7); ABSOLUTE GRANULOCYTE CT 3.5 /CUMM (1.4-6.5); ABSOLUTE LYMPH COUNT 8.6 /CUMM (1.2-3.4); ABSOLUTE MONOCYTE COUNT 1.3 /CUMM (0.10-0.60); BASOPHIL % 2.5 % (0.0-2.0); EOSINOPHIL % 0.3 % (0-5); GRANULOCYTE % 25.5 % (42.2-75.2); MEAN CORPUSCULAR HGB 26.5 PG (27.0-31.0); MEAN CORPUSCULAR HGB CONC 32.7 G/DL (33.0-37.0); MEAN CORPUSCULAR VOLUME 80.9 FL (81.0-99.0); MEAN PLATELET VOLUME 8.6 FL (7.4-10.4); PLATELET COUNT 234 /CUMM (130-400); RBC DISTRIBUTION WIDTH 21.7 % (11.5-14.5); RED BLOOD CELL CT 2.53 /CUMM (4.20-5.40); WHITE BLOOD CELL COUNT 13.8 /CUMM (4.8-10.8)
[2016-12-25 17:47] LABS: HEMATOCRIT 20.5 % (37-47)
[2016-12-26 00:32] VITALS: BP 120/67
[2016-12-26 07:47] VITALS: BP 110/71
--- NOTE | 2016-12-26 07:47 | PN- Housestaff ---
See Addendum Subjective Follow-up For: Acute on chronic anemia Concerns for underlying bone marrow issue Subjective: Patient seen and examined at bedside this AM. She reports she did not sleep well and now had mild neck pain. Patient currently denies fever, chills, lethargy, dizziness or active bleeding. She feels well after receiving the blood transfusions. Review of Systems Constitutional: Denies: chills, malaise, weakness. EENTM: Denies: visual changes, hearing changes, nasal congestion. Cardiovascular: Denies: chest pain, palpitations. Respiratory: Denies: cough. Gastrointestinal: Denies: abdominal pain. Genitourinary: Denies: hematuria. Musculoskeletal: Reports: neck pain. Denies: back pain. Skin: Denies: lesions. Neurological/Psychological: Denies: confusion, numbness. Hematologic/Endocrine: Denies: bruising, bleeding. Immunologic/Allergic: Denies: splenectomy. Objective Last 24 Hrs of Vital Signs/I&O Vital Signs Date Time Temp Pulse Resp B/P Pulse O2 O2 Flow FiO2 Ox Delivery Rate 12/26 0647 98.1 81 20 110/71 90 Room Air 12/26 0032 98.4 76 20 120/67 92 Intake & Output 12/26 1600 12/26 0800 12/26 0000 Intake Total 240 480 Output Total 250 Balance 240 230 Intake, IV 0 Intake, Oral 240 480 Number 0 2 Bowel Movements Output, Urine 250 Physical Exam General Appearance: Alert, Oriented X3, Cooperative, No Acute Distress Other Physical Findings: Skin: No Significant Lesion, Pallor HEENT: Atraumatic, Mucous Membr. moist/pink Neck: Supple, No JVD Lymphatic: + left inguinal lymph node palpable, + right axillary lymph node Cardiovascular: Regular Rate, Normal S1, Normal S2, + systolic murmur at mitral area Lungs: Clear to Auscultation, Normal Air Movement Abdomen: Normal Bowel Sounds, Soft, No Tenderness, + splenomegaly noted on examination Neurological: Normal Gait, Normal Speech, Strength at 5/5 X4 Ext, Normal Tone Extremities: No Clubbing, No Cyanosis, No Edema Vascular: Pulses Symmetrical Current Medications: Current Medications Sig/Noreen Start time Last Medication Dose Route Stop Time Status Admin Acetaminophen 650 MG Q6P PRN 12/24 2330 AC PO Nicotine 14 MG DAILY 12/25 1754 AC 12/25 [facility] 195 Patient Medication 1 ED .STK-MED ONE 12/25 1347 [facility] ED 12/25 1348 Last 24 Hrs of Lab/Benny Results Last 24 Hrs of Labs/Mics: Laboratory Tests 12/26/16 0640: CBC w Diff Pending, WBC Pending, RBC Pending, Hgb Pending, Hct Pending, MCV Pending, MCH Pending, RDW Pending, Plt Count Pending, MPV Pending, Gran % Pending, Lymphocytes % Pending, Monocytes % Pending, Eosinophils % Pending, Basophils % Pending, Absolute Granulocytes Pending, Absolute Lymphocytes Pending , Absolute Monocytes Pending, Absolute Eosinophils Pending, Absolute Basophils Pending, PUBS MCHC Pending 12/25/16 1540: CBC w Diff NO MAN DIFF REQ, RBC 2.53 L, MCV 80.9 L, MCH 26.5 L, RDW 21.7 H, MPV 8.6, Gran % 25.5 L, Lymphocytes % 62.4 H, Monocytes % 9.3, Eosinophils % 0.3, Basophils % 2.5 H, Absolute Granulocytes 3.5, Absolute Lymphocytes 8.6 H, Absolute Monocytes 1.3 H, Absolute Eosinophils 0, Absolute Basophils 0.3, PUBS MCHC 32.7 L, EBV Capsid Ag IgG Ab Pending, EBV Capsid Ag IgM Ab Pending, EBV Nuclear Ag IgG Ab Pending, EBV Interpretation Pending, Parvovirus B19 IgG Ab Pending, Parvovirus B19 IgM Ab Pending Orders ECHO Findings: CONCLUSIONS Normal left ventricular systolic function. Mild left atrial enlargement. Aortic Sclerosis with trivial to mild Aortic stenosis. Radiology Findings: Abdominal US: IMPRESSION: 1. Splenomegaly spleen measuring 19.2 cm longitudinally as compared to 15.3 cm on prior MRI scan. 2. Liver normal in size and unremarkable in appearance on ultrasound. Previously seen subcapsular mass in hepatic segment 7 is not appreciated on this exam. 3. Large calcified gallstone within the gallbladder, unchanged. Gallbladder otherwise unremarkable. No evidence of biliary dilatation. 4. Enlarging cyst in lower pole of right kidney Assessment/Plan Assessment: Ms. 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 Patient endorsed a recent 2 week history of hypotension, for which she was recently taken off her antihypertensives. Review of systems is significant for weakness, lethargy and palpiations. At time of admission,s he denies melena, hematemesis, bright red blood per rectum or hematuria as well as NSAID use. In the ED: Vital signs showed T 97.9, HR 98, RR 18, BP 110/66 and O2 saturation of 96% on RA. Labs were significant for WBC 15.9, 2 bands, 69% lymphocytes, H&H 4.5/14.3, Plt 304, and normal BEP except for slight increase in BUN to 20. Ca noted to be elevated to 10.5, Fe 205, TIBC 359, Ferritin 225, troponin <0.01, Vit B12 545, Folate 15 and IN 1.11. EKG showed NSR with HR 95, QTC 478, multiple PVCs and no ST changes. Patient is admitted to the general medicine floor and the following is the management: 1. Acute on chronic anemia * No obvious bleeding and asymptomatic (with negative guiac), likely a gradual process with recent increase in severity of anemia * H&H on admission of 4.5/14.3, leukocytosis of 15.9 * Demand ischemia ruled out with troponin <0.01 x [address] changes on EKG * PBS showed elliptocytes, target cells, tear drops, microcytosis, increased lymphocytes, few smudge cells, few nucleated RBC, and normal platelets. * Patient is s/p 4 U PRBCs, AM CBC pending, will f/u H&H and transfuse as needed to keep Hgb>7 * Hematology/oncology consult appreciated, suggested ordering flow cytometry, SPEP, LDH, Merline, abdominal US, and viral studies (EBV, HIV, Parvovirus B19 and hepatitis) which has been done * Abd US showed enlarged spleen without hepatomegaly * Hepatitis adn HIV non-reactive, rest of studies pending so will f/u results * PET scan and bone marrow biopsy to be done as an outpatient as patient will follow up with Dr. Altagracia MD for further management of underlying bone marrow issue * Discharge later today or tomorrow 2. Hypercalcemia * Ca on admission of 10.5 * Patient s/p 1 IV bolus NS * Ca now WNL, no need to trend 3. HTN * Resume antihypertensives once BP trends upwards * Echocardiogram done, shows mild aortic sclerosis without stenosis, no other significant findings 4. Right kidney cyst, enlarging * Patient should follow up with PCP to monitor cyst progression FULL CODE DVTP: Alps Heart Healthy diet Mild pain pathway Problem List: 1. Symptomatic anemia 2. Leukocytosis Pain Ratin Pain Location: Neck Pain Goal: Pain 4 or less Pain Plan: Tylenol for mild pain. Tomorrow's Labs & Rationales: CBC (monitor H&H in setting of anemia requiring 4 U PRBCs to date).
[2016-12-26 08:11] LABS: ABSOLUTE EOSINOPHIL COUNT 0 /CUMM (0.0-0.7); EOSINOPHIL % 0.1 % (0-5)
[2016-12-26 08:18] LABS: ABSOLUTE BASOPHIL COUNT 0.1 /CUMM (0.0-0.2); ABSOLUTE GRANULOCYTE CT 4.5 /CUMM (1.4-6.5); ABSOLUTE LYMPH COUNT 7.7 /CUMM (1.2-3.4); ABSOLUTE MONOCYTE COUNT 5.6 /CUMM (0.10-0.60); BASOPHIL % 0.6 % (0.0-2.0); GRANULOCYTE % 25.2 % (42.2-75.2); HEMATOCRIT 23.6 % (37-47); MEAN CORPUSCULAR HGB 26.9 PG (27.0-31.0); MEAN CORPUSCULAR HGB CONC 32.8 G/DL (33.0-37.0); MEAN PLATELET VOLUME 8.6 FL (7.4-10.4); RBC DISTRIBUTION WIDTH 22.5 % (11.5-14.5); RED BLOOD CELL CT 2.88 /CUMM (4.20-5.40); WHITE BLOOD CELL COUNT 17.9 /CUMM (4.8-10.8)
--- NOTE | 2016-12-26 08:45 | ECHOCARDIOGRAM REPORT ---
JONO ACEVEDO Age: 76 : 1940 Gender: F Exam Date: 12/25/2016 17:08 Exam Location: [address] [place] [address] Ht (in): 66 Wt (lb): 153 BSA: 1.81 BP: 104 / 64 Ordering Physician: ANDERSON DANIELS MD Referring Physician: Ronen Morrison M.D. Technologist: Maia Romano [facility] Room Number: [id number] Indications: PALPITATIONS Rhythm: Sinus Technical Quality: fair FINDINGS Left Ventricle Normal global left ventricular size, wall thickness, systolic function with no obvious regional wall motion abnormalities. Normal left ventricular ejection fraction estimated at 60-65%. Right Ventricle Normal right ventricular size and function. Right Atrium Normal right atrial size. Left Atrium Mild left atrial dilatation. Mitral Valve Mild mitral annular calcification. Trace to mild mitral regurgitation. Aortic Valve Diffuse thickening of the aortic valve cusps without significant reduced excursion. At most trivial to mild aortic stenosis. Tricuspid Valve Tricuspid valve is normal in structure and function. Mild tricuspid regurgitation. Right ventricular systolic pressure estimated to be within the normal range at 30 mmHg. Pulmonic Valve Pulmonic valve not well visualized, grossly normal. Pericardium No pericardial effusion. Great Vessels Normal size aortic root. CONCLUSIONS Normal left ventricular systolic function. Mild left atrial enlargement. Aortic Sclerosis with trivial to mild Aortic stenosis. Abrahan Zhong M.D. (Electronically Signed) Final Date: 26 December 2016 08:44 MEASUREMENTS (Male / Female) Normal Values 2D ECHO LV Diastolic Diameter PLAX 5.0 cm 4.2 - 5.9 / 3.9 - 5.3 cm LV Systolic Diameter PLAX 2.5 cm 2.1 - 4.0 cm LV Fractional Shortening PLAX 50.0 % 25 - 46 % LV Ejection Fraction 2D Teich 81.1 % IVS Diastolic Thickness 0.8 cm LVPW Diastolic Thickness 0.9 cm LV Relative Wall Thickness 0.3 RV Internal Dim ED PLAX 2.6 cm 1.9 - 3.8 cm LVOT Diameter 1.8 cm Aortic Root Diameter 2.9 cm LA Systolic Diameter LX 4.4 cm 3.0 - 4.0 / 2.7 - 3.8 cm LA Volume 48.0 cm 18 - 58 / 22 - 52 cm Ascending Aorta Diameter 3.7 cm DOPPLER AV Peak Velocity 234.0 cm/s AV Peak Gradient 21.9 mmHg AV Mean Velocity 155.0 cm/s AV Mean Gradient 11.0 mmHg AV Velocity Time Integral 49.6 cm LVOT Peak Velocity 150.0 cm/s LVOT Peak Gradient 9.0 mmHg LVOT Mean Velocity 104.0 cm/s LVOT Mean Gradient 5.0 mmHg LVOT Velocity Time Integral 30.3 cm LVOT Stroke Volume 77.1 cm AV Area Cont Eq vti 1.6 cm AV Area Cont Eq pk 1.6 cm MV Peak Velocity 121.0 cm/s MV Peak Gradient 5.9 mmHg MV Mean Velocity 65.2 cm/s MV Mean Gradient 2.0 mmHg Mitral E Point Velocity 110.0 cm/s Mitral A Point Velocity 75.5 cm/s Mitral E to A Ratio 1.5 MV PHT Velocity 127.0 cm/s MV Deceleration Dawson 426.0 cm/s MV Pressure Half Time 89.4 ms MV Area PHT 2.5 cm MV Deceleration Time 185.0 ms TR Peak Velocity 251.0 cm/s TR Peak Gradient 25.2 mmHg Right Atrial Pressure 5.0 mmHg Pulmonary Artery Systolic Pressu 30.2 mmHg Right Ventricular Systolic Press 30.2 mmHg PV Peak Velocity 119.0 cm/s PV Peak Gradient 5.7 mmHg PV Mean Velocity 83.2 cm/s PV Mean Gradient 3.0 mmHg PV Velocity Time Integral 25.1 cm LV E' Lateral Velocity 16.8 cm/s Mitral E to LV E' Lateral Ratio 6.5 LV E' Septal Velocity 10.8 cm/s Mitral E to LV E' Septal Ratio 10.2
[2016-12-26 09:08] LABS: PLATELET COUNT 213 /CUMM (130-400)
--- NOTE | 2016-12-26 09:36 | Patient Discharge Instructions ---
Discharge Instructions General Discharge Information You were seen/treated for: Acute anemia requiring blood transfusion Special Instructions: Please follow up with your PCP within 7 days of discharge. Have him follow the right renal cyst seen on abdominal US. Please follow up with Dr. Wallace hematology within 2 weeks of discharge. Please take all medications as directed. Please have a CBC checked in 1 week and send results to Dr. Frias. Diet Recommended Diet: Heart Healthy Activity Activity Self Limited: Yes Acute Coronary Syndrome Inclusion Criteria At DC or during hospital stay patient has or had the following: ACS DIAGNOSIS No Discharge Core Measures Meds if any: Prescribed or Continued at Discharge Meds if any: NOT Prescribed or Continued at Discharge Congestive Heart Failure Inclusion Criteria At DC or during hospital stay patient has or had the following: CHF DIAGNOSIS No Discharge Core Measures Meds if any: Prescribed or Continued at Discharge Meds if any: NOT Prescribed or Continued at Discharge Cerebrovascular accident Inclusion Criteria At DC or during hospital stay patient has or had the following: CVA/TIA Diagnosis No Discharge Core Measures Meds if any: Prescribed or Continued at Discharge Meds if any: NOT Prescribed or Continued at Discharge Venous thromboembolism Inclusion Criteria VTE Diagnosis No VTE Type NONE VTE Confirmed by (Test) NONE Discharge Core Measures - Per Current guidelines, there needs to be overlap - treatment for the first 5 days of Warfarin therapy. - If discharged on Warfarin prior to 5 days of - overlap therapy, the patient will need to be - assessed for post discharge needs including - *Post discharge parental anticoagulation - *Warfarin and/or parental anticoagulation education - *Follow up date to check INR post discharge At least 5 days overlap therapy as Inpatient No Meds if any: Prescribed or Continued at Discharge Note: Overlap Therapy is Warfarin and Anticoagulant Meds if any: NOT Prescribed or Continued at Discharge
--- NOTE | 2016-12-26 10:38 | PN- Hematology ---
Subjective Subjective: She feels better this morning. She denies any new symptoms. Review of Systems: Constitutional: Denies: chills, fever, malaise, weakness. EENTM: Denies: epistaxis. Cardiovascular: Denies: chest pain, edema, syncope. Respiratory: Denies: hemoptysis, short of breath, wheezing. GI: Denies: abdominal pain, diarrhea, melena, nausea, bloody stool, vomiting. Genitourinary: Denies: hematuria. Musculoskeletal: Denies: back pain. Skin: Denies: rash. Neurological/Psychological: Denies: anxiety, cognitive dysfunction, confusion, depressed. Hematologic/Endocrine: Denies: bruising, bleeding, polyuria. All Other Systems: Reviewed and Negative Objective Vital Signs and I&Os Vital Signs Date Time Temp Pulse Resp B/P Pulse O2 O2 Flow FiO2 Ox Delivery Rate 12/26 0647 98.1 81 20 110/71 90 Room Air 12/26 0032 98.4 76 20 120/67 92 Intake & Output 12/26 1600 12/26 0000 12/25 1600 12/25 0000 Intake Total 606 198 5470 1160 Output Total 250 1050 350 Balance 827 438 8864 110 -350 Intake, Blood 700 Product Intake, IV 0 400 60 Intake, Oral 240 480 600 400 Number 0 2 Bowel Movements Output, Urine 250 1050 350 Patient 69.4 kg 69.4 kg Weight Physical Exam: General Appearance: well developed/nourished, no apparent distress, alert, awake , comfortable Head: atraumatic, normal appearance Ears, Nose, Throat: normal pharynx, normal ENT inspection, moist mucus membranes Neck: normal inspection, supple, no adenopathy Respiratory: normal breath sounds, chest non-tender, no respiratory distress Cardiovascular: regular rate/rhythm, murmur (systolic murmur best at apex) Gastrointestinal: normal bowel sounds, soft, non-tender, hepatomegaly (3 fingers below last rib), spleenomegaly Back: normal inspection Extremities: normal inspection, pedal edema (1+ lower extremity) Neurologic/Psych: awake, alert, oriented x 3 Skin: intact, normal color, warm/dry Lymphatic: right axilla with 1.5 cm lymph node, left axilla with 1 cm lymph node , left inguinal small lymph node Current Medications: Current Medications Sig/Noreen Start time Last Medication Dose Route Stop Time Status Admin Acetaminophen 650 MG Q6P PRN 12/24 2330 AC PO Nicotine 14 MG DAILY 12/25 1754 AC 12/26 TOP 1021 Patient Medication 1 ED .[facility] ONE 12/25 1347 [facility] ED 12/25 1348 Results Last 24 Hours of Lab Results: Laboratory Tests 12/26 12/25 0640 1540 Hematology CBC w Diff NO MAN DIFF REQ NO MAN DIFF REQ WBC (4.8 - 10.8 /CUMM) 17.9 H 13.8 H RBC (4.20 - 5.40 /CUMM) 2.88 L 2.53 L Hgb (12.0 - 16.0 G/DL) 7.7 L 6.7 *L Hct (37 - 47 %) 23.6 L 20.5 L MCV (81.0 - 99.0 FL) 82.0 80.9 L MCH (27.0 - 31.0 PG) 26.9 L 26.5 L RDW (11.5 - 14.5 %) 22.5 H 21.7 H Plt Count (130 - 400 /CUMM) 213 234 MPV (7.4 - 10.4 FL) 8.6 8.6 Gran % (42.2 - 75.2 %) 25.2 L 25.5 L Lymphocytes % (20.5 - 51.1 %) 43.0 62.4 H Monocytes % (1.7 - 9.3 %) 31.1 H 9.3 Eosinophils % (0 - 5 %) 0.1 0.3 Basophils % (0.0 - 2.0 %) 0.6 2.5 H Absolute Granulocytes (1.4 - 6.5 /CUMM) 4.5 3.5 Absolute Lymphocytes (1.2 - 3.4 /CUMM) 7.7 H 8.6 H Absolute Monocytes (0.10 - 0.60 /CUMM) 5.6 H 1.3 H Absolute Eosinophils (0.0 - 0.7 /CUMM) 0 0 Absolute Basophils (0.0 - 0.2 /CUMM) 0.1 0.3 PUBS MCHC (33.0 - 37.0 G/DL) 32.8 L 32.7 L Serology EBV Capsid Ag IgG Ab Pending EBV Capsid Ag IgM Ab Pending EBV Nuclear Ag IgG Ab Pending EBV Interpretation Pending Parvovirus B19 IgG Ab Pending Parvovirus B19 IgM Ab Pending Recent Imaging Studies: US abdomen 12/25/2016: 1. Splenomegaly spleen measuring 19.2 cm longitudinally as compared to 15.3 cm on prior MRI scan. 2. Liver normal in size and unremarkable in appearance on ultrasound. Previously seen subcapsular mass in hepatic segment 7 is not appreciated on this exam. 3. Large calcified gallstone within the gallbladder, unchanged. Gallbladder otherwise unremarkable. No evidence of biliary dilatation. 4. Enlarging cyst in lower pole of right kidney. Echocardiogram 12/25/2016: Normal left ventricular systolic function. Mild left atrial enlargement. Aortic Sclerosis with trivial to mild Aortic stenosis. Assessment/Plan Assessment/Recommendations: Mr. Gamboa is a 76-year-old female with history of beta thalassemia, hypertension , Lyme disease, and pericarditis who presented with severe anemia. She has no obvious bleeding. She is mostly asymptomatic which suggest a more chronic process. Her reticulocytes are reduced for her degree of anemia. Blood smear demonstreated elliptocytes, target cells, tear drops, microcytosis, increase lymphocytes, few smudge cells, few nucleated RBC, and normal platelets. This suggests an underlying marrow issues including CLL. It would be helpful to send for flow cytometry. She will need bone marrow evaluation which may be done as an outpatient. LDH is normal. She does have splenomegaly with lymphadenopathy. She will likely need PET scan as outpatient as she has allergy to CT contrast dye. Given her steroid currently may not be good as she may have lymphoma. Steroid may influence the diagnosis. Viral studies have demonstrated negative hepatitis and HIV. Recommendations: 1. Follow up repeat CBC 2. Check flow cytometry on peripheral blood (leukocytosis, anemia, monocytosis) 3. Check SPEP 4. PET scan (IV contrast allergy, ? lymphoma) 5. Will need bone marrow biopsy (can be done as outpatient) 6. Follow up EBV, [id number] 7. Transfuse 1 unit of pRBC (hct >25%) 8. Follow up as outpatient Please call [phone] with any questions or concerns. Problem List: 1. Leukocytosis 2. Symptomatic anemia
--- NOTE | 2016-12-26 11:43 | Discharge Summary ---
See Addendum Visit Information Visit Dates Admission Date: 12/24/16 Discharge Date: 12/27/16 Hospital Course Course Attending Physician: COURT VEE MD Primary Care Physician: ESSENCE ARIAS MD Consulting Request: Consulting Specialty: Hematology/Oncology Consulting Physician: Dr. Mario Frias Reason for Consult: Evaluation for underlying bone marrow issue Hospital Course: Ms. 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 Patient endorsed a recent 2 week history of hypotension, for which she was recently taken off her antihypertensives. Review of systems was significant for weakness, lethargy and palpiations. At time of admission, she denied melena, hematemesis, bright red blood per rectum, hematuria or chronic NSAID use. In the ED: Vital signs showed T 97.9, HR 98, RR 18, BP 110/66 and O2 saturation of 96% on RA. Labs were significant for WBC 15.9, 2 bands, 69% lymphocytes, H&H 4.5/14.3, Plt 304, and normal BEP except for slight increase in BUN to 20. Ca noted to be elevated to 10.5, Fe 205, TIBC 359, Ferritin 225, troponin <0.01, Vit B12 545, Folate 15 and IN 1.11. EKG showed NSR with HR 95, QTC 478, multiple PVCs and no ST changes. Patient was admitted to the general medicine floor and the following was the management: 1. Acute on chronic anemia: Patient was admitted without obvious signs of bleeding, having a negative stool guiac, and without signs of hemodynamic instability. She had a H&H on admission of 4.5/14.3 with a reduced reticulocyte count for her degree of anemia. She had a blood smear done that showed elliptocytes, target cells, tear drops, microcytosis, increase lymphocytes, few smudge cells, few nucleated RBC, and normal platelets. She was typed and crossed and initially transfused 2 units of PRBCs while in the emergency room. Hematology/oncology was consulted due to concerns over CBC underlying marrow issues including CLL. Dr. Frias suggested ordering flow cytometry, SPEP, Merline , PET scan and bone marrow biopsy. All of these laboratory tests will be followed by Dr. Frias as an outpatient and patient will have PET scan and bone marrow biopsy after discharge. He also suggested obtaining viral studies, including hepatitis panel, HIV, EBC and parvovirus B19. Hepatitis and HIV were found to be negative and the other viral studies did not return prior to discharge. Patient had an abdominal US that showed splenomegaly without hepatomegaly. Patient had her CBC trended and received a total of 5 units PRBCs during her stay. Last CBC showed H&H 8.5/25.5. She will resume her iron after discharge and follow up closely with her PCP and Dr. Frias. 2. Hypercalcemia: Calcium on admission noted to be elevated to 10.5. She was given 1 L of normal saline and repeat calcium levels were within normal limits. 3. HTN: Patient had her antihypertensives held on admission due to concerns of anemia and borderline low blood pressure. She was NOT resumed on these medications prior to discharge due to persistently normal/low blood pressure readings. PCP should monitor and resume if necessary. 4. Right kidney cyst, enlarging: Abdominal US was done and showed enlarginc cyst in lower pole of right kidney. PCP should be aware and monitor. 5. Tobacco abuse: Patient noted to be a current, active smoker. She was counseled on tobacco cessation. She was placed on nicotine patch during her stay. 6. Diet: Heart Healthy 7. Code Status: FULL 8. DVT prophylaxis: ALPS Complications: None. 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 COMPARISON: MRI scan of the abdomen dated 04/07/[address] scan of the abdomen and pelvis dated 03/29/2014. TECHNIQUE: Real-time imaging of the abdominal viscera. FINDINGS: PANCREAS: Normal. ABDOMINAL AORTA: The proximal segment is normal in caliber. INFERIOR VENA CAVA: Visualized portions are normal. LIVER: Normal. The liver demonstrates normal size, contour and echogenicity. The previously seen subcapsular T2 bright mass in hepatic segment 7 is not appreciated on this ultrasound. No focal hepatic lesion or intrahepatic biliary duct dilatation. GALLBLADDER: Gallbladder filled with a large echogenic shadowing gallstone, producing a wall echo shadow sign. Similar findings were seen previously. No obvious pericholecystic fluid or sonographic James's sign. COMMON BILE DUCT: Normal in caliber measuring 0.6 cm in diameter. RIGHT KIDNEY: In the lower pole of the right kidney, a 1.6 x 1.3 x 1.6 cm hypoechoic thin-walled avascular cyst is seen, previously measuring 0.9 cm in size. No hydronephrosis. No renal calculi or focal parenchymal lesions. The kidney measures 10.6 cm in maximum dimension. LEFT KIDNEY: Normal. No hydronephrosis. No renal calculi or focal parenchymal lesions. The kidney measures 11.6 cm in maximum dimension. SPLEEN: Enlarged. The spleen measures 19.2 cm in maximum dimension versus 15.3 cm on prior MRI scan. No focal splenic mass. FREE FLUID: None. IMPRESSION: 1. Splenomegaly spleen measuring 19.2 cm longitudinally as compared to 15.3 cm on prior MRI scan. 2. Liver normal in size and unremarkable in appearance on ultrasound. Previously seen subcapsular mass in hepatic segment 7 is not appreciated on this exam. 3. Large calcified gallstone within the gallbladder, unchanged. Gallbladder otherwise unremarkable. No evidence of biliary dilatation. 4. Enlarging cyst in lower pole of right kidney. Echocardiogram: FINDINGS Left Ventricle Normal global left ventricular size, wall thickness, systolic function with no obvious regional wall motion abnormalities. Normal left ventricular ejection fraction estimated at 60-65%. Right Ventricle Normal right ventricular size and function. Right Atrium Normal right atrial size. Left Atrium Mild left atrial dilatation. Mitral Valve Mild mitral annular calcification. Trace to mild mitral regurgitation. Aortic Valve Diffuse thickening of the aortic valve cusps without significant reduced excursion. At most trivial to mild aortic stenosis. Tricuspid Valve Tricuspid valve is normal in structure and function. Mild tricuspid regurgitation. Right ventricular systolic pressure estimated to be within the normal range at 30 mmHg. Pulmonic Valve Pulmonic valve not well visualized, grossly normal. Pericardium No pericardial effusion. Great Vessels Normal size aortic root. CONCLUSIONS Normal left ventricular systolic function. Mild left atrial enlargement. Aortic Sclerosis with trivial to mild Aortic stenosis. Disposition Summary Disposition Principal Diagnosis: Acute on chronic anemia requiring PRBC transfusion Additional Diagnosis: Hypercalcemia HTN Right kidney cyst Tobacco abuse Discharge Disposition: home or self care Discharge Instructions General Discharge Information Code Status: Full Code Patient's Diet: Heart Healthy diet. Patient's Activity: Self-limited, as tolerated. Follow-Up Instructions/Appts: Please follow up with your PCP within 7 days of discharge. Have him follow the right renal cyst seen on abdominal US. Please follow up with Dr. Wallace hematology within 2 weeks of discharge. Please take all medications as directed. Medications at Discharge Discharge Medications: Stop taking the following medications: Candesartan Cilexetil (Candesartan Cilexetil) 8 MG TABLET ORAL DAILY Qty = 90 Hydrochlorothiazide (Hydrochlorothiazide) 12.5 MG CAPSULE ORAL DAILY Qty = 30 Continue taking these medications: Iron,Carbonyl (Feosol) 45 MG TABLET 65 Milligram ORAL Every Day Copies To: ANGELICA QUINTANA,MARIO; JUANA QUINTANA,ESSENCE Lyons MD Review Statement Documenting Attending: MARIUSZ QUINTANA,COURT Vega
[2016-12-26 16:13] VITALS: BP 122/76
[2016-12-26 23:35] VITALS: BP 130/70
--- NOTE | 2016-12-27 07:25 | PN- Housestaff ---
See Addendum Subjective Follow-up For: Acute on chronic anemia Subjective: Patient seen and examined at bedside this AM. Stable for DC. Review of Systems Constitutional: Denies: chills. EENTM: Denies: blurred vision. Cardiovascular: Denies: chest pain, palpitations. Respiratory: Denies: cough, short of breath. Gastrointestinal: Denies: abdominal pain, bloody stool. Musculoskeletal: Reports: neck pain. Denies: back pain. Skin: Denies: erythema. Hematologic/Endocrine: Denies: bruising, bleeding. Objective Last 24 Hrs of Vital Signs/I&O Vital Signs Date Time Temp Pulse Resp B/P Pulse O2 O2 Flow FiO2 Ox Delivery Rate 12/27 0758 97.9 73 18 112/64 93 Room Air 12/26 2335 99.1 83 20 130/70 93 Room Air 12/26 1613 98.9 79 22 122/76 94 Physical Exam General Appearance: Alert, Oriented X3, Cooperative, No Acute Distress Other Physical Findings: Skin: No Significant Lesion, Pallor HEENT: Atraumatic, Mucous Membr. moist/pink Neck: Supple, No JVD Lymphatic: + left inguinal lymph node palpable, + right axillary lymph node Cardiovascular: Regular Rate, Normal S1, Normal S2, + systolic murmur at mitral area Lungs: Clear to Auscultation, Normal Air Movement Abdomen: Normal Bowel Sounds, Soft, No Tenderness, + splenomegaly noted on examination Neurological: Normal Gait, Normal Speech, Strength at 5/5 X4 Ext, Normal Tone Extremities: No Clubbing, No Cyanosis, No Edema Vascular: Pulses Symmetrical Current Medications: Current Medications Sig/Noreen Start time Last Medication Dose Route Stop Time Status Admin Acetaminophen 650 MG Q6P PRN 12/24 2330 AC PO Nicotine 14 MG DAILY 12/25 1754 AC 12/27 TOP 0943 Last 24 Hrs of Lab/Benny Results Last 24 Hrs of Labs/Mics: Laboratory Tests 12/27/16 0603: CBC w Diff MAN DIFF ORDERED, RBC 3.05 L, MCV 83.7, MCH 27.9, RDW 21.4 H, MPV 8.7, Segmented Neutrophils 21 L, Band Neutrophils 1, Lymphocytes 68 H, Monocytes 8, Eosinophils 1, Basophils 1, Nucleated RBCs 4 H, Platelet Estimate ADEQUATE, Polychromasia 1+, Hypochromic-Microcytic 2+, Poikilocytosis 2+, Basophilic Stippling , Anisocytosis 2+, Ovalocytes 1+, Schistocytes 1+, PUBS MCHC 33.4 Assessment/Plan Assessment: Ms. Gamboa is a pleasant 76 year old female with PMH iron deficiency anemia, lyme disease, HTN and pericarditis as well as family history of beta-thalasemia minor in her daughter who presented to [place] on 12/24/16 after routine blood work done by her primary care physician showed acute anemia. Patient endorsed a recent 2 week history of hypotension, for which she was recently taken off her antihypertensives. Review of systems is significant for weakness, lethargy and palpiations. At time of admission,s he denies melena, hematemesis, bright red blood per rectum or hematuria as well as NSAID use. In the ED: Vital signs showed T 97.9, HR 98, RR 18, BP 110/66 and O2 saturation of 96% on RA. Labs were significant for WBC 15.9, 2 bands, 69% lymphocytes, H&H 4.5/14.3, Plt 304, and normal BEP except for slight increase in BUN to 20. Ca noted to be elevated to 10.5, Fe 205, TIBC 359, Ferritin 225, troponin <0.01, Vit B12 545, Folate 15 and IN 1.11. EKG showed NSR with HR 95, QTC 478, multiple PVCs and no ST changes. Patient is admitted to the general medicine floor and the following is the management: 1. Acute on chronic anemia * No obvious bleeding and asymptomatic (with negative guiac), likely a gradual process with recent increase in severity of anemia * H&H on admission of 4.5/14.3, leukocytosis of 15.9 * Demand ischemia ruled out with troponin <0.01 x [address] changes on EKG * PBS showed elliptocytes, target cells, tear drops, microcytosis, increased lymphocytes, few smudge cells, few nucleated RBC, and normal platelets. * Patient is s/p 5 U PRBCs, AM CBC shows Hgb 8.5, stable for DC * Hematology/oncology consult appreciated, suggested ordering flow cytometry, SPEP, LDH, Merline, abdominal US, and viral studies (EBV, HIV, Parvovirus B19 and hepatitis) which has been done * Abd US showed enlarged spleen without hepatomegaly * Hepatitis adn HIV non-reactive, rest of studies pending so will f/u results * PET scan and bone marrow biopsy to be done as an outpatient as patient will follow up with Dr. Altagracia MD for further management of underlying bone marrow issue * Discharge later today 2. Hypercalcemia * Ca on admission of 10.5 * Patient s/p 1 IV bolus NS * Ca now WNL, no need to trend 3. HTN * Resume antihypertensives on DC * Echocardiogram done, shows mild aortic sclerosis without stenosis, no other significant findings 4. Right kidney cyst, enlarging * Patient should follow up with PCP to monitor cyst progression FULL CODE DVTP: Alps Heart Healthy diet Mild pain pathway Problem List: 1. Symptomatic anemia 2. Leukocytosis Pain Ratin Pain Location: Neck pain Pain Goal: Pain 4 or less Pain Plan: Mild pain pathway Tomorrow's Labs & Rationales: None, DC today. Consulting Request: Consulting Specialty: Hematology/Oncology Consulting Physician: Dr. Mario Frias Reason for Consult: Evaluation for underlying bone marrow issue
[2016-12-27 07:58] VITALS: BP 112/64
[2016-12-27 08:33] LABS: HEMATOCRIT 25.5 % (37-47); MEAN CORPUSCULAR HGB 27.9 PG (27.0-31.0); MEAN CORPUSCULAR HGB CONC 33.4 G/DL (33.0-37.0); MEAN CORPUSCULAR VOLUME 83.7 FL (81.0-99.0); MEAN PLATELET VOLUME 8.7 FL (7.4-10.4); PLATELET COUNT 210 /CUMM (130-400); RBC DISTRIBUTION WIDTH 21.4 % (11.5-14.5); RED BLOOD CELL CT 3.05 /CUMM (4.20-5.40); WHITE BLOOD CELL COUNT 18.1 /CUMM (4.8-10.8)
--- NOTE | 2016-12-27 08:56 | PN- Hematology ---
Subjective Subjective: She had one more unit of pRBC yesterday. She feels well. She wants to go home today. Review of Systems: Constitutional: Denies: chills, fever, malaise, weakness. EENTM: Denies: epistaxis. Cardiovascular: Denies: chest pain, edema, syncope. Respiratory: Denies: hemoptysis, short of breath, wheezing. GI: Denies: abdominal pain, diarrhea, melena, nausea, vomiting. Genitourinary: Denies: hematuria. Musculoskeletal: Denies: back pain. Hematologic/Endocrine: Denies: bruising, bleeding. All Other Systems: Reviewed and Negative Objective Vital Signs and I&Os Vital Signs Date Time Temp Pulse Resp B/P Pulse O2 O2 Flow FiO2 Ox Delivery Rate 12/27 0758 97.9 73 18 112/64 93 Room Air 12/26 2335 99.1 83 20 130/70 93 Room Air 12/26 1613 98.9 79 22 122/76 94 Intake & Output 12/27 1600 12/27 0800 12/27 0000 12/26 1600 12/26 0800 12/26 0000 Intake Total 400 240 480 Output Total 250 Balance 400 240 230 Intake, IV 0 Intake, Oral 400 240 480 Number 0 2 Bowel Movements Output, Urine 250 Physical Exam: General Appearance: well developed/nourished, no apparent distress, alert, awake , comfortable Head: atraumatic, normal appearance Ears, Nose, Throat: normal pharynx, normal ENT inspection, moist mucus membranes Neck: normal inspection, supple, no adenopathy Respiratory: normal breath sounds, chest non-tender, no respiratory distress Cardiovascular: regular rate/rhythm, murmur (systolic murmur best at apex) Gastrointestinal: normal bowel sounds, soft, non-tender, splenomegaly Extremities: normal inspection, pedal edema (1+ lower extremity) Neurologic/Psych: awake, alert, oriented x 3 Skin: intact, normal color, warm/dry Lymphatic: right axilla with 1.5 cm lymph node, left axilla with 1 cm lymph node , left inguinal small lymph node Current Medications: Current Medications Sig/Noreen Start time Last Medication Dose Route Stop Time Status Admin Acetaminophen 650 MG Q6P PRN 12/24 2330 AC PO Nicotine 14 MG DAILY 12/25 1754 AC 12/26 TOP 1021 Results Last 24 Hours of Lab Results: Laboratory Tests 02/10 0603 Hematology CBC w Diff MAN DIFF ORDERED WBC (4.8 - 10.8 /CUMM) Pending RBC (4.20 - 5.40 /CUMM) Pending Hgb (12.0 - 16.0 G/DL) Pending Hct (37 - 47 %) Pending MCV (81.0 - 99.0 FL) Pending MCH (27.0 - 31.0 PG) Pending RDW (11.5 - 14.5 %) Pending Plt Count (130 - 400 /CUMM) Pending MPV (7.4 - 10.4 FL) Pending Gran % (42.2 - 75.2 %) Pending Lymphocytes % (20.5 - 51.1 %) Pending Monocytes % (1.7 - 9.3 %) Pending Eosinophils % (0 - 5 %) Pending Basophils % (0.0 - 2.0 %) Pending Absolute Granulocytes (1.4 - 6.5 /CUMM) Pending Segmented Neutrophils (42.2 - 75.2 %) Pending Absolute Lymphocytes (1.2 - 3.4 /CUMM) Pending Absolute Monocytes (0.10 - 0.60 /CUMM) Pending Absolute Eosinophils (0.0 - 0.7 /CUMM) Pending Absolute Basophils (0.0 - 0.2 /CUMM) Pending PUBS MCHC (33.0 - 37.0 G/DL) Pending Assessment/Plan Assessment/Recommendations: Mr. Gamboa is a 76-year-old female with history of beta thalassemia, hypertension , Lyme disease, and pericarditis who presented with severe anemia. She has no obvious bleeding. She is mostly asymptomatic which suggest a more chronic process. Anemia improved with transfusion. She continues to have leukocytosis. She has an increasing monocytes prodominence. Previous examination of blood smear demonstreated elliptocytes, target cells, tear drops, microcytosis, increase lymphocytes, few smudge cells, few nucleated RBC, and normal platelets. This suggests an underlying marrow issues including CLL and CML. She will need floow cytometry. She will need bone marrow evaluation which may be done as an outpatient. Viral studies are pending. Recommendations: 1. Check flow cytometry on peripheral blood (leukocytosis, anemia, monocytosis) 2. Check SPEP 3. PET scan (IV contrast allergy, ? lymphoma) 4. Bone marrow biopsy (can be done as outpatient) 5. Follow up EBV, [id number] 6. Follow up as outpatient in 1 week Please call [phone] with any questions or concerns. Problem List: 1. Leukocytosis 2. Symptomatic anemia
== END 2016-12-27 12:45 | DRG 812 ==
LOC: ENRESERVDT → ENRESERVTM → ERH 18:56 → ERHI 21:45 → 2NB 21:45 → ENPENDDIS 21:45 → 2NB 12-25 00:19
PROVIDERS: Physician Assistant; Student in an Organized Health Care Education/Training Program; ADMIT Student in an Organized Health Care Education/Training Program
PROC: 30233N1 Transfusion of Nonautologous Red Blood Cells into Peripheral Vein, Percutaneous Approach (ICD-10-PCS; principal; 2016-12-24)
DX: D64.9 Anemia, unspecified (principal); E83.52 Hypercalcemia; I10 Essential (primary) hypertension; N28.1 Cyst of kidney, acquired; F17.200 Nicotine dependence, unspecified, uncomplicated
CPT/HCPCS: 2NBSP; ERO; 36415; 81001; 82436; 83010; 86920; 87389; 88184; 93005; 93010; 93306; 96360; 96361; 99291; P9016

== ENCOUNTER 2017-01-23 16:17 | Emergency (ER) | payer OTHER, MEDICARE ==
[~2017-01-23 16:17] MED LIST: CANDESARTAN CILE8 M1 PO; FEOSOL45 M1 PO; HYDROCHLOROTH12.5 M3 PO
--- NOTE | 2017-01-23 17:42 | ED GENERAL ADULT ---
History of Present Illness General Chief Complaint: General Adult Stated Complaint: AGUSTINA RENE, FOR BLOOD TRANSFUSION Source: patient, family, old records Exam Limitations: no limitations Vital Signs & Intake/Output Vital Signs & Intake/Output Vital Signs Date Time Temp Pulse Resp B/P Pulse O2 O2 Flow FiO2 Ox Delivery Rate 01/23 2213 98.9 74 18 104/57 95 Room Air Room Air 01/23 2052 99.1 77 18 102/54 96 Room Air 01/23 1630 98.2 84 16 106/63 97 Room Air Allergies Coded Allergies: azithromycin (From ZITHROMAX) (Severe, LIVER 12/24/16) Iodinated Contrast Media - Oral and (CAT SCAN DYES BURN 01/23/17) Reconcile Medications Candesartan Cilexetil (Unknown Strength) TABLET (Unknown Dose) UNKNOWN ( Reported) Hydrochlorothiazide 12.5 MG CAPSULE 1 CAP PO DAILY DIURETIC (Reported) Iron,Carbonyl (Feosol) (Unknown Strength) TABLET (Unknown Dose) PO DAILY SUPPLEMENT (Reported) Multivitamin (Multi-Day Vitamins) 1 EACH TABLET 1 TAB PO DAILY SUPPLEMENT ( Reported) Nicotine (Nicoderm Cq) 14 MG/24 HOUR PATCH.TD24 1 PAT TOP DAILY SMOKING CESSATION (Reported) Triage Note: TRIAGE; PT TO ED SIB DR KAMARAN. STATES SHE IS HERE FOR A BLOOD TRANSFUSION. WAS ADMITTED IN DEC FOR ANEMIA. DENIES ANY WEAKNESS/DIZZINESS AT THIS TIME. [facility] AND TOLD TO COME TO ER FOR TRANSFUSION. Triage Nurses Notes Reviewed? yes Onset: Gradual Duration: day(s): (1) Timing: recent history Injury Environment: home Severity: mild Severity Numbers: 1 No Modifying Factors: none HPI: Patient is a 76-year-old female with history of chronic anemia presenting to the emergency department sent in by her blow molder for worsening hematocrit and hemoglobin levels. She had her blood levels checked last week and everything was okay. She was seen this morning, had her blood levels checked and was told to come into the emergency department for transfusion. Patient presents brenner episode of dizziness this morning but took off her nicotine patch and ate breakfast and felt much better. Denies any chest pain palpitations nausea vomiting fevers or chills. Patient reports that she feels hungry. Denies abdominal pain. No change of bowel habits. Denies any blood in the bowel habits. Denies any bleeding from anywhere. She had received 2 units of blood about a month and a half ago. No changes in weight. Denies any upper respiratory symptoms. No visual changes. (BETTINA MCRAE) Past History Travel History Traveled to [place] past 21 day No Medical History Any Pertinent Medical History? 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 No (BETTINA MCRAE) Review of Systems Review of Systems Constitutional: Reports: no symptoms. Comments Review of systems: See HPI, All other systems negative. Constitutional, no chills fever or weight loss HEENT: No visual changes no sore throat no congestion Cardiovascular: No chest pain ,palpitation , orthopnea or ankle swelling Skin, no jaundice no rashes Respiratory: No dyspnea cough sputum or hemoptysis GI: No nausea no vomiting : No dysuria No hematuria Muscle skeletal: no back pain, no neck pain, Neurologic: No numbness no confusion, no headaches Psych: No stress anxiety or depression,. Heme/endocrine: No bruising no bleeding no polyuria or polydipsia Immunology: No splenectomy or history of AIDS (BETTINA MCRAE) Physical Exam Physical Exam General Appearance: well developed/nourished, no apparent distress, alert, awake , comfortable Comments: Well-developed well-nourished person in no acute distress HEENT: extraocular motion intact, no nystagmus. Pupils equally round and reactive to light and accommodation. Nose is atraumatic. External auditory canal and Tympanic membranes clear. Pharynx normal. No swelling or edema. Pale color to palpable conjunctiva. Neck: Normal inspection Back: Nontender Cardiovascular: Regular rate and rhythms no murmurs rubs or gallops, normal JVP Respiratory: Chest nontender. No respiratory distress.breath sounds clear to auscultation bilaterally Extremity: No edema Neuro: Alert oriented x3, motor sensory normal, cranial nerves II through XII grossly intact. Cerebellar testing is unremarkable. Skin: Spider angiomas noted on the abdomen, otherwise No appreciable rash on exposed skin, skin is warm and dry. Psych: Mood and affect is normal, memory and judgment is normal. Core Measures ACS in differential dx? No CVA/TIA Diagnosis: No Severe Sepsis Present: No Septic Shock Present: No (BETTINA MCRAE) Progress Differential Diagnoses I considered the following diagnoses in my evaluation of the patient: Acute on chronic anemia, dehydration, electrolyte abnormality, GI bleed Plan of Care: Orders Procedure Date/time Status BLOOD PRODUCT PICKUP 01/23 2106 Active LEUKOCYTE POOR (PACKED CELLS) 01/23 1909 Active PARTIAL THROMBOPLASTIN TIME 01/24 1812 Complete PROTHROMBIN TIME 01/24 1812 Complete COMPREHENSIVE METABOLIC PANEL 01/24 1812 Complete CBC WITHOUT DIFFERENTIAL 01/24 1812 Complete TYPE & SCREEN (NOT X-MATCH) 01/24 1812 Active Laboratory Tests 01/23/17 1845: Anion Gap 7, Estimated GFR > 60, BUN/Creatinine Ratio 24.3, Glucose 86, Calcium 10.3 H, Total Bilirubin 0.8, AST 26, ALT 33, Alkaline Phosphatase 45, Total Protein 5.6 L, Albumin 3.7, Globulin 1.9, Albumin/Globulin Ratio 1.9, PT 11.8, INR 1.13, APTT 26, CBC w Diff MAN DIFF ORDERED, RBC 2.13 L, MCV 82.2, MCH 28.6, RDW 19.3 H, MPV 8.1, Segmented Neutrophils 30 L, Lymphocytes 62 H, Monocytes 8, Platelet Estimate ADEQUATE, Polychromasia 1+, Hypochromic-Microcytic 2+, Poikilocytosis 1+, Anisocytosis 2+, Microcytic Cells 1+, Ovalocytes FEW, Elliptocytes FEW, Schistocytes RARE, PUBS MCHC 34.8 Initial ED EKG: none Hand-Off Endorsed To: ISIA CHAN MD Endorsed Time: 99 Pending: other Comments: Patient sent in for blood transfusion. She is alert and oriented vitals are within normal range and exam is benign, except for pallor to palpable conjunctiva. Likely acute on chronic anemia. Patient will be transfused with 2 units of blood and discharged home afterwards. Discussed with Dr. chan and he agrees with plan. 01/24/2017 1:00:25 AM patient will be signed out to Dr. chan pending blood transfusion completion. We will continue to monitor the patient for any adverse reactions. (BETTINA MCRAE) Departure Departure Disposition: HOME OR SELF CARE Condition: Stable Clinical Impression Primary Impression: Chronic anemia Referrals: ESSENCE ARIAS MD (PCP/Family) Additional Instructions: Follow-up with her primary care physician [facility] appointment. Return for worsening symptoms or concerns. Departure Forms: Customer Survey General Discharge Information (BETTINA MCRAE) PA/STOCK TRANSFER CLERK Co-Sign Statement Statement: ED Attending supervision documentation- x I saw and evaluated the patient. I have also reviewed all the pertinent lab results and diagnostic results. I agree with the findings and the plan of care as documented in the PA's/STOCK TRANSFER CLERK's documentation. [] I have reviewed the ED Record and agree with the PA's/STOCK TRANSFER CLERK's documentation. [] Additions or exceptions (if any) to the PAs/STOCK TRANSFER CLERK's note and plan are summarized below: [] (ISAI CHAN MD) Critical Care Note Critical Care Note Critical Care Time: 30-74 min (BETTINA MCRAE)
[2017-01-23 19:00] LABS: MEAN CORPUSCULAR HGB 28.6 PG (27.0-31.0); MEAN CORPUSCULAR HGB CONC 34.8 G/DL (33.0-37.0); MEAN CORPUSCULAR VOLUME 82.2 FL (81.0-99.0); MEAN PLATELET VOLUME 8.1 FL (7.4-10.4); PLATELET COUNT 234 /CUMM (130-400); RBC DISTRIBUTION WIDTH 19.3 % (11.5-14.5); RED BLOOD CELL CT 2.13 /CUMM (4.20-5.40); WHITE BLOOD CELL COUNT 9.9 /CUMM (4.8-10.8)
[2017-01-23 19:04] LABS: HEMATOCRIT 17.5 % (37-47)
[2017-01-23 19:11] LABS: PT 11.8 SEC (9.4-12.5); PTT 26 SEC (25-37)
[2017-01-23] MEDS ORDERED: HYDROCHLOROTH12.5 M3 PO (19:47)
[2017-01-23] MEDS ORDERED: CANDESARTAN CILE8 M1 (19:48)
[2017-01-23] MEDS ORDERED: NICODERM CQ1 EAC1 TOP (19:55)
[2017-01-23] MEDS ORDERED: MULTI-DAY VITA1 EACH PO (19:56)
[2017-01-24 07:44] VITALS: BP 121/60
== END 2017-01-24 08:44 ==
LOC: ERH 16:17
PROVIDERS: Physician Assistant
DX: D64.9 Anemia, unspecified (principal); I10 Essential (primary) hypertension; Z79.899 Other long term (current) drug therapy
CPT/HCPCS: 86920; 96365; 96366; P9016

== ENCOUNTER 2018-04-07 12:59 | Inpatient (IN) | payer OTHER ==
[~2018-04-07] VITALS: Ht 162.6 cm; Wt 78.1 kg
[~2018-04-07 12:59] MED LIST changes: +CANDESARTAN CILE8 M1; +MULTI-DAY VITA1 EACH PO; +NICODERM CQ1 EAC1 TOP
[2018-04-07 14:07] LABS: HEMATOCRIT 36.8 % (37-47); MEAN CORPUSCULAR HGB CONC 31.6 G/DL (33.0-37.0); MEAN CORPUSCULAR VOLUME 66.5 FL (81.0-99.0); MEAN PLATELET VOLUME 8.6 FL (7.4-10.4); PLATELET COUNT 242 /CUMM (130-400); RBC DISTRIBUTION WIDTH 17.9 % (11.5-14.5); RED BLOOD CELL CT 5.53 /CUMM (4.20-5.40); WHITE BLOOD CELL COUNT 6.9 /CUMM (4.8-10.8)
--- NOTE | 2018-04-07 14:54 | ED GENERAL ADULT ---
History of Present Illness General Chief Complaint: General Adult Stated Complaint: WEAKNESS/INSOMNIA/WHEEZING Source: patient Exam Limitations: no limitations Vital Signs & Intake/Output Vital Signs & Intake/Output Vital Signs Date Time Temp Pulse Resp B/P B/P Pulse O2 O2 Flow FiO2 Mean Ox Delivery Rate 04/075 97.5 128 20 129/81 04/07 2318 97.5 128 20 129/81 95 Nasal 2.0L Cannula 04/07 2053 98.6 121 18 134/92 04/07 2051 98.6 121 18 134/92 95 Nasal 2.0L Cannula 04/07 1954 122 18 137/92 95 Nasal 2.0L Cannula 04/07 193 103 122/96 04/07 1923 18 92 Nasal 2.0L Cannula 04/07 1922 98.5 132 18 125/95 90 Room Air 04/07 1847 98.3 108 20 133/81 93 Room Air 04/07 1756 124 20 120/83 04/07 1557 98.1 138 20 131/94 04/07 1538 92 Room Air 04/07 1537 98.1 136 20 131/94 92 Room Air 04/07 1501 98.8 133 20 129/46 93 Room Air 04/07 1338 99.0 120 22 133/92 92 Room Air ED Intake and Output 04/08 0000 04/07 1200 Intake Total Output Total Balance Patient 164 lb Weight Allergies Coded Allergies: azithromycin (From ZITHROMAX) (Severe, LIVER 12/24/16) Iodinated Contrast- Oral and IV Dye (IODINATED CONTRAST MEDIA - ORAL AND) (CAT SCAN DYES BURN 01/23/17) Reconcile Medications Apixaban (Eliquis) 5 MG TABLET 1 TAB PO BID BLOOD THINNER (Reported) Candesartan Cilexetil (Unknown Strength) TABLET (Unknown Dose) UNKNOWN ( Reported) Doxycycline Hyclate (Vibramycin) 100 MG CAPSULE 1 CAP PO BID BRONCHITIS Fluticasone/Vilanterol (Breo Ellipta 200-25 Mcg INH) 200 MCG-25 MCG/DOSE BLST.W.DEV SHORTNESS OF BREATH (Reported) Hydrochlorothiazide 12.5 MG CAPSULE 1 CAP PO DAILY DIURETIC (Reported) Iron,Carbonyl (Feosol) (Unknown Strength) TABLET (Unknown Dose) PO DAILY SUPPLEMENT (Reported) Metoprolol Succinate 50 MG TAB.ER.24H 1 TAB PO DAILY HEALTH SUPPLEMENT ( Reported) Multivitamin (Multi-Day Vitamins) 1 EACH TABLET 1 TAB PO DAILY SUPPLEMENT ( Reported) Nicotine (Nicoderm Cq) 14 MG/24 HOUR PATCH.TD24 1 PAT TOP DAILY SMOKING CESSATION (Reported) Prednisone (Deltasone) 20 MG TABLET 1 TAB PO DAILY BRONCHITIS Umeclidinium Stedman (Incruse Ellipta) 62.5 MCG/ACTUATION BLST.W.DEV SHORTNESS OF BREATH (Reported) Triage Note: PER PT HAS NOT BEEN RIGHT SINCE SEPTEMBER, SICK WITH VIRAL INFECTIONS AND NOW AFIB, PER PT PLACED ON ELIQUIS AND METOPROLOL LAST WEEK, FEEL LOUSY SND LABORED PT TALKATIVE WITHOUT SOB PT FINISHED CHEMO IN SEP. Triage Nurses Notes Reviewed? yes Onset: Abrupt Duration: day(s): Timing: recent history HPI: 04/07/18 6 PM 77-year-old female with a past medical history of non-Hodgkin's lymphoma, chronic anemia, atrial fibrillation, and COPD. She does still smoke 10 cigarettes a day. She presents to the emergency department with bilateral expiratory wheezing. She had stopped her inhalers because of her atrial fibrillation. She denies any chest pain or fever. Past History Travel History Traveled to [place] past 21 day No Medical History Any Pertinent Medical History? 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 No Review of Systems Review of Systems Constitutional: Denies: fever. EENTM: Reports: no symptoms. Respiratory: Reports: wheezing. Cardiovascular: Denies: chest pain. GI: Reports: abdominal pain. Genitourinary: Reports: no symptoms. Musculoskeletal: Reports: no symptoms. Skin: Reports: no symptoms. Neurological/Psychological: Reports: no symptoms. Hematologic/Endocrine: Reports: no symptoms. Immunologic/Allergic: Reports: no symptoms. Physical Exam Physical Exam General Appearance: alert, awake, anxious Head: atraumatic, normal appearance Eyes: Bilateral: normal appearance, PERRL, EOMI. Ears, Nose, Throat: normal pharynx, normal ENT inspection Neck: normal inspection, supple, full range of motion Respiratory: normal breath sounds, chest non-tender, no respiratory distress Cardiovascular: irregularly irregular Peripheral Pulses: 4+ radial (R), 4+ radial (L) Gastrointestinal: soft, non-tender Back: decreased range of motion Extremities: no edema Neurologic/Psych: no motor/sensory deficits, awake, alert, oriented x 3 Skin: intact, normal color, warm/dry Core Measures ACS in differential dx? Yes CVA/TIA Diagnosis: No Sepsis Present: No Sepsis Focused Exam Completed? No Progress Differential Diagnoses I considered the following diagnoses in my evaluation of the patient: [COPD exacerbation, pulmonary embolism, asthma, bronchitis, pneumonia, CHF] Plan of Care: Orders Procedure Date/time Status Heart Healthy Diet 04/08 B Active HEPATIC FUNCTION PANEL 04/08 06 Active CBC WITHOUT DIFFERENTIAL 04/08 06 Active BASIC ELECTROLYTES PLUS BUN&CR 04/08 600 Active Pathway - chart 04/07 2332 Active House Staff 04/07 2332 Active Patient Data 04/07 2332 Active Code Status 04/07 2332 Active ED Holding Orders 04/07 2058 Active Admit to inpatient 04/07 2058 Active Code Status 04/07 2058 Complete Patient Data 04/07 1644 Active Telemetry/Electric Arc Welder 04/07 1537 Active Intake & Output 04/07 1537 Active THYROID STIMULATING HORMONE 04/07 1345 Complete PHOSPHORUS 04/07 1345 Complete MAGNESIUM 04/07 1345 Complete D-DIMER 04/07 1343 Complete EKG 04/07 1339 Active URINALYSIS 04/07 1338 Complete TROPONIN LEVEL 04/07 1338 Complete COMPREHENSIVE METABOLIC PANEL 04/07 1338 Complete CBC WITHOUT DIFFERENTIAL 04/07 1338 Complete TRC EVALUATION (GEN) 04/07 UNK Active Lab Add-on Test 04/07 UNK Active VTE Mechanical Prophylaxis 04/07 UNK Active Vital Signs 04/07 UNK Active Telemetry/Electric Arc Welder 04/07 UNK Active Intake & Output 04/07 UNK Active Hemoccult 04/07 UNK Active Current Medications Sig/Noreen Start time Last Medication Dose Stop Time Status Admin Nicotine 7 MG Q24 04/08 09 AC (Nicotine Cq) Tiotropium Stedman 1 PUF DAILY 04/08 09 AC (Spiriva) Albuterol Sulfate 2 PUF Q4P PRN 04/07 2345 AC (Ventolin) Acetaminophen 325 MG Q6P PRN 04/07 2330 AC (Tylenol) Apixaban 5 MG BID 04/07 233 AC 04/07 (Eliquis) 235 Diltiazem HCl 30 MG Q8 04/07 232 AC 04/07 (Cardizem) 2355 Laboratory Tests 04/07/18 1715: Urine Color YEL, Urine Clarity CLEAR, Urine pH 6.0, Ur Specific [place] <= 1.005 , Urine Protein NEG, Urine Ketones NEG, Urine Nitrite NEG, Urine Bilirubin NEG, Urine Urobilinogen 0.2, Ur Leukocyte Esterase NEG, Ur Microscopic EXAM NOT REQUIRED, Urine Hemoglobin NEG, Urine Glucose NEG 04/07/18 1345: Anion Gap 9, Estimated GFR > 60, BUN/Creatinine Ratio 15.0, Glucose 105 H, Calcium 10.1, Phosphorus 3.6, Magnesium 2.0, Total Bilirubin 1.7 H, AST 23, ALT 46, Alkaline Phosphatase 97, Troponin I < 0.01, Total Protein 5.5 L, Albumin 3.8, Globulin 1.7 L, Albumin/Globulin Ratio 2.2, TSH 1.080, D-Dimer High Sensitivty < 200, CBC w Diff MAN DIFF ORDERED, RBC 5.53 H, MCV 66.5 L, MCH 21.0 L, MCHC 31.6 L, RDW 17.9 H, MPV 8.6, Segmented Neutrophils 80 H, Lymphocytes 9 L, Monocytes 9, Eosinophils 1, Basophils 1, Nucleated RBCs 1 H, Platelet Estimate VERIFIED BY SMEAR, Polychromasia 1+, Hypochromic-Microcytic 2+ , Poikilocytosis 1+, Basophilic Stippling 1+, Anisocytosis 1+, Microcytic Cells 2+, Ovalocytes 1+ Initial ED EKG: RAPID AFIB, AVR 139 Departure Departure Disposition: STILL A PATIENT Condition: Stable Clinical Impression Primary Impression: COPD (chronic obstructive pulmonary disease) Secondary Impressions: Chronic a-fib Referrals: Martínez Francisco MD (PCP/Family) Departure Forms: Customer Survey General Discharge Information Prescriptions: Current Visit Scripts Doxycycline Hyclate (Vibramycin) 1 CAP PO BID #20 CAP Prednisone (Deltasone) 1 TAB PO DAILY #3 TAB Comments The patient's lungs are clear after albuterol treatment. We'll put on a short course of prednisone and antibiotics. She'll continue her medications as directed and follow-up with Dr. Haddad on Friday. Patient remains tachycardic. I paged her egg worker Dr. Beach Admission Note Spoke With: Ana Paula Fagan MD Documentation of Exam: Documentation of any treatments & extenuating circumstances including Concerns Regarding Discharge (functional status, medication knowledge or non-compliance, living conditions, etc.) that warrant an admission rather than observation: [The patient continues to have rapid A. fib despite multiple doses of IV Lopressor. I spoke to her egg worker Dr. Beach who is in agreement with the plan to admit her to telemetry for rapid A. fib] Critical Care Note Critical Care Note Critical Care Time: 30-74 min
--- NOTE | 2018-04-07 15:15 | RADIOLOGY REPORT ---
EXAMINATION: XR CHEST CLINICAL INFORMATION: Cough and shortness of breath COMPARISON: None TECHNIQUE: 2 views of the chest were obtained. FINDINGS: The lungs are well expanded. There is a small right-sided pleural effusion with associated airspace opacity. Minimal streaky retrocardiac opacity. No pneumothorax. The cardiomediastinal silhouette is prominent. Degenerative changes of the spine. IMPRESSION: Small right pleural effusion with associated airspace opacity which could represent atelectasis or pneumonia. Minimal retrocardiac atelectasis.
[2018-04-07] MEDS ORDERED: ELIQUIS5 M1 PO (18:48)
[2018-04-07] MEDS ORDERED: METOPROLOL SUCC50 M2 PO (18:48)
[2018-04-07] MEDS ORDERED: BREO ELLIPTA 21 EACH (18:48)
[2018-04-07] MEDS ORDERED: INCRUSE ELLI62.5 MCG (18:49)
[2018-04-07] MEDS ORDERED: VIBRAMYCIN100 MG PO (19:13)
[2018-04-07] MEDS ORDERED: DELTASONE20 MG PO (19:13)
--- NOTE | 2018-04-07 22:13 | History & Physical ---
Amanda Ladd 04/07/18 9240: General Information and HPI MD Statement: I have seen and personally examined CURTIS,JONO and documented this H&P. The patient is a 77 year old F who presented with a patient stated chief complaint of [diarrhea/TACHYCARDIA/wheezing]. Source of Information: patient, old records Exam Limitations: no limitations History of Present Illness: Ms. Gamboa is a 77yo F w/ PMH of non-Hodgkin lymphoma status post chemotherapy in 09/2017, recently diagnosed A. fib on metoprolol/Eliquis 5 mg twice daily, COPD not on home oxygen, been treated with BREO/InCruza presented to the ER around noon for evaluation of ongoing diarrhea ever since start of metoprolol, and weakness/not feeling right since 09/2017, and later findings of A. fib/RVR within the ER at the time of our clinical interaction for admission. Patient was diagnosed with non-Hodgkin lymphoma, being cared under Dr. Frias. Patient saw Dr. Velia REDMAN on 04/01/2018 that she was diagnosed with A. fib, was started on metoprolol XL 50 mg daily, Eliquis 5 mg twice daily. However patient stated ever since she started taking metoprolol, she was having diarrhea episodes, nonbloody, not associated with abdominal pain or tenderness notes, and denies nausea/vomiting. Patient also stated that a recent nebulization treatments may have increased her heart rate. Patient has been compliant with her inhaler, and denies any worsening cough/chest pain/chest tightness/ exertional S OB/palpitations. During our clinical interaction, patient denied fever/lightheadedness/ diaphoresis/night sweat/weight change/cough/SOB/Chest Pain/Palpitation/Abdominal pain/bowel movement or urinary abnormality, or other skin/musculoskeletal/ neurological/mood disorders, or dietary/appetite change. -Smoking: Active smoker since age of 47 -Alcohol: Denies -Rec Drugs: Denied Allergies/Medications Allergies: Coded Allergies: azithromycin (From ZITHROMAX) (Severe, LIVER 12/24/16) Iodinated Contrast- Oral and IV Dye (IODINATED CONTRAST MEDIA - ORAL AND) (CAT SCAN DYES BURN 01/23/17) Home Med list Apixaban (Eliquis) 5 MG TABLET 1 TAB PO BID BLOOD THINNER (Reported) Candesartan Cilexetil (Unknown Strength) TABLET (Unknown Dose) UNKNOWN ( Reported) Doxycycline Hyclate (Vibramycin) 100 MG CAPSULE 1 CAP PO BID BRONCHITIS Fluticasone/Vilanterol (Breo Ellipta 200-25 Mcg INH) 200 MCG-25 MCG/DOSE BLST.W.DEV SHORTNESS OF BREATH (Reported) Hydrochlorothiazide 12.5 MG CAPSULE 1 CAP PO DAILY DIURETIC (Reported) Iron,Carbonyl (Feosol) (Unknown Strength) TABLET (Unknown Dose) PO DAILY SUPPLEMENT (Reported) Metoprolol Succinate 50 MG TAB.ER.24H 1 TAB PO DAILY HEALTH SUPPLEMENT ( Reported) Multivitamin (Multi-Day Vitamins) 1 EACH TABLET 1 TAB PO DAILY SUPPLEMENT ( Reported) Nicotine (Nicoderm Cq) 14 MG/24 HOUR PATCH.TD24 1 PAT TOP DAILY SMOKING CESSATION (Reported) Prednisone (Deltasone) 20 MG TABLET 1 TAB PO DAILY BRONCHITIS Umeclidinium [place] (Incruse Ellipta) 62.5 MCG/ACTUATION BLST.W.DEV SHORTNESS OF BREATH (Reported) Past History Travel History Traveled to [place] past 21 day No Medical History Neurological: NONE EENT: NONE Cardiovascular: AFIB, hypertension Respiratory: URI Gastrointestinal: NONE Hepatic: NONE Renal: NONE Musculoskeletal: NONE Psychiatric: NONE Endocrine: NONE Blood Disorders: anemia Cancer(s): NOHODGKINS LYMPHOMA CALL CENTER RECRUITER/Reproductive: NONE History of MRSA: No History of VRE: No History of CDIFF: No Surgical History Surgical History: non-contributory Past Family/Social History Psychosocial History Who Do You Live With? spouse Services at Home: None Primary Language: Setswana Smoking Status: Current Everyday Smoker ETOH Use: denies use Illicit Drug Use: denies illicit drug use Functional Ability ADLs Independent: dressing, eating, toileting, bathing. Ambulation: independent IADLs Independent: shopping, housework, finances, food prep, telephone, transportation , medication admin. Review of Systems Review of Systems Constitutional: Reports: see HPI. Exam & Diagnostic Data Last 24 Hrs of Vital Signs/I&O Vital Signs Date Time Temp Pulse Resp B/P B/P Pulse O2 O2 Flow FiO2 Mean Ox Delivery Rate 04/07 2053 98.6 121 18 134/92 04/07 2051 98.6 121 18 134/92 95 Nasal 2.0L Cannula 04/07 1954 122 18 137/92 95 Nasal 2.0L Cannula 04/07 1934 103 122/96 04/07 1923 18 92 Nasal 2.0L Cannula 04/07 1922 98.5 132 18 125/95 90 Room Air 04/07 1847 98.3 108 20 133/81 93 Room Air 04/07 1756 124 20 120/83 04/07 1557 98.1 138 20 131/94 04/07 1538 92 Room Air 04/07 1537 98.1 136 20 131/94 92 Room Air 04/07 1501 98.8 133 20 129/46 93 Room Air 04/07 1338 99.0 120 22 133/92 92 Room Air Intake & Output 04/07 1600 04/07 0800 04/07 0000 Intake Total Output Total Balance Patient 74.389 kg Weight Physical Exam General Appearance Alert, Oriented X3, Cooperative, No Acute Distress Skin No Significant Lesion, eczema on ear/elbows Skin Temp/Moisture Exam: Cool/Dry Sepsis Skin Exam (color): Normal for Ethnicity HEENT Atraumatic, PERRLA, EOMI, Mucous Membr. moist/pink Neck Supple, JVD +ve Lymphatic Axillary nl, Cervical nl Cardiovascular irregular tachycardia Lungs Normal Air Movement, wheezing non-auscultable, BL lung bases faint crackles Abdomen Normal Bowel Sounds, Soft, No Tenderness, No Hepatospenomegaly Neurological Normal Speech, Strength at 5/5 X4 Ext Extremities Normal Pulses, +1 BL ankle edema Last 24 Hrs of Labs/Benny: Laboratory Tests 04/07/18 1715: Urine Color YEL, Urine Clarity CLEAR, Urine pH 6.0, Ur Specific [place] <= 1.005 , Urine Protein NEG, Urine Ketones NEG, Urine Nitrite NEG, Urine Bilirubin NEG, Urine Urobilinogen 0.2, Ur Leukocyte Esterase NEG, Ur Microscopic EXAM NOT REQUIRED, Urine Hemoglobin NEG, Urine Glucose NEG 04/07/18 1345: Anion Gap 9, Estimated GFR > 60, BUN/Creatinine Ratio 15.0, Glucose 105 H, Calcium 10.1, Total Bilirubin 1.7 H, AST 23, ALT 46, Alkaline Phosphatase 97, Troponin I < 0.01, Total Protein 5.5 L, Albumin 3.8, Globulin 1.7 L, Albumin/ Globulin Ratio 2.2, D-Dimer High Sensitivty < 200, CBC w Diff MAN DIFF ORDERED, RBC 5.53 H, MCV 66.5 L, MCH 21.0 L, MCHC 31.6 L, RDW 17.9 H, MPV 8.6, Segmented Neutrophils 80 H, Lymphocytes 9 L, Monocytes 9, Eosinophils 1, Basophils 1, Nucleated RBCs 1 H, Platelet Estimate VERIFIED BY SMEAR, Polychromasia 1+, Hypochromic-Microcytic 2+, Poikilocytosis 1+, Basophilic Stippling 1+, Anisocytosis 1+, Microcytic Cells 2+, Ovalocytes 1+ Diagnostic Data EKG Results A-fib w/ RVR Assessment/Plan Assessment: On admission, Vitals: Stable afebrile, BP 144/92, 2 L nasal canal was 95% -CBC: Unremarkable except for mild microcytic anemia 11.6/36.8 -BMP: Unremarkable -CXR: Small right pleural effusion with associated airspace opacity which could represent atelectasis or pneumonia. Minimal retrocardiac atelectasis. -EKG: A. fib with rapid RVR -Interventions in ER: Metoprolol IV 25 mg total, albuterol, Atrovent Problem list & Assessment: #A. fib with rapid RVR: Discussed with Dr. Beach in the ER, and will admit the patient for further rate control as metoprolol had not been adequate, and it has caused some side effects per patient's history. #COPD, stable: Unlikely exacerbating without active wheezing/CXR findings. Patient is currently maintained on a 2 L nasal cannula with 95% O2 sat. Patient was not taking her inhalers at home due to fear of side effects. #Questionable pneumonia/atelectasis on CXR: No leukocytosis/fever/productive cough/signs of infection or sepsis. Will continue monitor was on antibiotics. #PMH of non-Hodgkin lymphoma status post chemotherapy: Appears stable for now, would inform [facility] Course: - Admit to telemetry DVT prophylaxis Eliquis + ALPS Heart Healthy Diet Full Code As Ranked By This Provider Problem List: 1. COPD (chronic obstructive pulmonary disease) 2. Chronic a-fib Core Measures/Misc (08/03) Acute Coronary Syndrome ACS Diagnosis: No Congestive Heart Failure Congestive Heart Failure Diagnosis No Cerebrovascular Accident CVA/TIA Diagnosis: No VTE (View Protocol) VTE Risk Factors Age>40 No Mechanical VTE Prophylaxis d/t N/A MechProphylax Ordered No VTE Pharm Prophylaxis d/t NA PharmProphylax ordered Sepsis (View protocol) Sepsis Present: No If YES complete Sepsis Event Note If YES complete Sepsis Event Note Emily QUINTANA,[facility] 04/08/18 0049: Core Measures/Misc (08/03) Sepsis (View protocol) If YES complete Sepsis Event Note If YES complete Sepsis Event Note Resident Review Statement Resident Statement: examined this patient, discussed with trestle mainternance laborer, agreed with trestle mainternance laborer, discussed with family, reviewed EMR data (avail) Other Findings: Jono is 77-year-old female with past medical history significant for non- Hodgkin lymphoma status post chemotherapy last around September 2017, iron deficiency anemia, hypertension not on hypertensive medication for episodes of hypotension in the past, COPD, seasonal allergy, shingles 2 who presented to ED with chief complaint of weakness and diarrhea. Patient reported soft bowel movement 6 times since morning, stool incontinence today while in the ED. Patient denied any abdominal pain, nausea or vomiting, fever or constipation. She reported history of viral infection in December and February for which she was given incrusa and Breo. Patient reported endoscopy tech palpitation that improved after breakfast, had a PCP visit who prescribed her incrusa however palpitation persist and at follow-up with Dr. Silva senior project architect/oncologist who told her that palpitation can be a side effect of this medication and advised her to follow-up with Dr. Chambers. Patient had an appointment with Dr. Chambers on the of this month where she was prescribed metoprolol XL 50 and Eliquis and echocardiogram was obtained however no results yet. Today patient felt very weak and had several bowel movement of soft stool and decided to come to ED for evaluation Vital signs on admission Temperature 99, pulse 120, blood pressure 133/92, respiratory rate 22 with saturation 92% on room air patient was started later on 2 L for saturation of 90 % on room air Labs significant for white blood cell 6.9, H&H 11.6/36.8, platelet 242, electrolytes within normal, d-dimer negative, UA negative Chest x-ray Small right pleural effusion with associated airspace opacity which could represent atelectasis or pneumonia. Minimal retrocardiac atelectasis. Impression Patient is 77-year-old female with past medical history significant for non- Hodgkin lymphoma status post chemotherapy September 2017, iron deficiency anemia, hypertension, COPD, actively smoking who presented to ED with chief complaint of weakness, several bowel movement of loose stool, palpitation that was evaluated by Dr. Chambers and was started on metoprolol 50 XL and Eliquis since April 01. Patient reported some productive cough that sounds to be related to her COPD and seasonal allergy, had a recent viral infection in February that cleared up. Patient does not have a sick contact. She denied any chest pain, palpitation or shortness of breath today. We will discontinue metoprolol because of the side effect bronch construction. Will start Cardizem 30 mg 3 times daily, continue Eliquis, and obtain cardiology consultation in a.m. Problem list Recent onset of atrial fibrillation on anticoagulation Non-Hodgkin's lymphoma COPD and seasonal allergies Plan Admit to telemetry floor Vitals every shift Continue Eliquis 5 mg twice daily Start Cardizem 30 mg 3 times daily Discontinue metoprolol Repeat CBCs, BMP in a.m. Obtain magnesium and TSH Repeat liver function test in a.m. TRC Start albuterol and Spiriva inhaler Will hold ordering echocardiogram as patient had echocardiogram on 04/[address] Chambers's office, will obtain records Cardiac consultation Dr. Chambers in a.m. Guaiac stool Will of antibiotic for now Nicotine patch DVT prophylaxis Alps and Eliquis Diet heart healthy Code full Ana Paula Fagan 04/08/18 0145: Core Measures/Misc (08/03) Sepsis (View protocol) If YES complete Sepsis Event Note If YES complete Sepsis Event Note Attending MD Review Statement Attending Statement Attending MD Statement: examined this patient, discuss w/resident/PA/[employer] GROUND MANAGER, agreed w/resident/PA/[employer] GROUND MANAGER, reviewed EMR data (avail), reviewed images, amended to note Attending Assessment/Plan: CC: Diarrhea PMH: non-Hodgkin's lymphoma, anemia, history of pericarditis, COPD Patient states that when she went to see her CALL CENTER RECRUITER answers regular follow-up visit she was told that her heart rate was elevated and her blood pressure was 100/70. She followed up with her senior project architect who repeated the labs and she did not have any anemia. He stated that because of her recent nebulization treatment she may have increased heart rate and she should see floral design teacher. She followed up with floral design teacher and was seen by TALENT ACQUISITION ADMINISTRATOR who started her on metoprolol and Eliquis. After metoprolol was started on 16 she is having 4-5 soft stools per day, nonbloody, not associated with abdominal pain or tenesmus, no nausea vomiting. Her heart rate was not improving and her diarrhea was getting worse so she came to ER. She states that in the pre-first week she had viral infection followed by chest congestion and shortness of breath and wheezing. At that time she found had followed up with primary care physician who had given her different breathing treatments. She had been compliant with her inhalers. During this time she denies any worsening cough, chest pain, chest tightness, exertional shortness of breath or chest pain, palpitations. She has chronic cough which is unchanged. He was not recently treated with antibiotics. Current smoker Vitals: Temperature 99.0, pulse 120, RR 22, blood pressure 133/92, saturating 95 % on 2 L. On exam: A O 3, cooperative, no acute distress, neck supple, JVD mild elevation , no lymphadenopathy, mucosa moist, no focal neurological deficit, edema around ankle, no obvious skin rashes or inflammation CVS: S1-S2, irregularly irregular, tachycardic. RS: Fine bibasilar crackles. Abdomen: Soft, NT, ND, bowel sounds present. CXR: Small right pleural effusion with associated airspace opacity which could represent atelectasis or pneumonia. Minimal retrocardiac atelectasis. Assessment and plan 77-year-old female with history of hypertension but antihypertensives can be discontinued after blood pressure was normalized. She has history of non-Hodgkin 's lymphoma and possible COPD and anemia presented in ER for diarrhea after starting metoprolol. Approximately a week back she saw floral design teacher for high heart rate, at that time she was started on metoprolol and Eliquis. She also underwent 2-D echocardiogram and is expected to get Holter monitor today. But in last few days her diarrhea was not tolerable and her heart rate was persistently elevated so she came to ER. She has A. fib with RVR, probably precipitated by recent use of LABA or COPD or viral infection. Spice Miller was called from ER who suggested hospitalization. Even though chest x-ray mentions possibility of pneumonia, she does not have any worsening cough, expectoration, pleuritic chest pain, fever or leukocytosis. We will hold metoprolol secondary to her diarrhea and start with Cardizem by mouth, await cardiology opinion. + A. fib with RVR + Possible COPD + History of non-Hodgkin's lymphoma - Admit to telemetry - Continuous telemetry monitoring - Please see metoprolol - Start Cardizem 30 mg - Continue home inhalers - Continue Eliquis - Check magnesium - Check TSH - Cardiology consult
--- NOTE | 2018-04-08 01:47 | Admission Certification ---
Admission Certification Certification Statement - As attending physician, I certify that at the time of - admission, based on clinical presentation, severity of - symptoms, need for further diagnostic testing and - therapeutic interventions, and risk of adverse outcomes - without in-hospital treatment, in my clinical assessment, - this patient requires an acute hospital stay for a minimum - of two nights or longer. I have also considered psychsocial - factors such as support system, advanced age, financial - issues, cognitive issues, and failed out-patient treatments, - past re-admission history, safety of patient, and lack of - compliance as applicable. Specific rationale supporting this admission is: A. fib with RVR
[2018-04-08 06:41] VITALS: BP 100/83
--- NOTE | 2018-04-08 08:19 | PN- Housestaff ---
Meggan Wilson 04/08/18 0819: Subjective Follow-up For: -diarrhea -tachycardia -wheezing Complaints: no complaints Subjective: I have seen and examined the patient today morning. Review of Systems Constitutional: Reports: see HPI. Objective Last 24 Hrs of Vital Signs/I&O Vital Signs Date Time Temp Pulse Resp B/P B/P Pulse O2 O2 Flow FiO2 Mean Ox Delivery Rate 04/08 1600 Nasal 3.0L Cannula 04/08 1434 97.5 118 20 114/68 96 Nasal Cannula 04/08 1321 124 110/64 04/08 1123 94 Nasal 3.0L Cannula 04/08 1115 Nasal 3.0L Cannula 04/08 0700 123 112/76 04/08 0641 97.9 123 20 100/83 92 Nasal 3.0L Cannula 04/08 0534 Nasal 3.5L Cannula 04/08 0428 97.6 96 18 127/84 88 Nasal 2.0L Cannula 04/08 0414 97.6 126 18 125/90 04/08 0405 97.6 126 18 125/90 93 Room Air 04/08 0304 92 Nasal 3.0L Cannula 04/07 2355 97.5 128 20 129/81 04/07 2318 97.5 128 20 129/81 95 Nasal 2.0L Cannula 04/07 2053 98.6 121 18 134/92 04/07 2051 98.6 121 18 134/92 95 Nasal 2.0L Cannula 04/07 1954 122 18 137/92 95 Nasal 2.0L Cannula 04/07 1934 103 122/96 04/07 192 18 92 Nasal 2.0L Cannula 04/07 1922 98.5 132 18 125/95 90 Room Air 04/07 1847 98.3 108 20 133/81 93 Room Air 04/07 1756 124 20 120/83 Intake & Output 04/08 1600 04/08 0800 04/08 0000 Intake Total 500 120 Output Total Balance 500 120 Intake, Oral 500 120 Number 2 Bowel Movements Patient 72.575 kg Weight Weight Bed scale Measurement Method Physical Exam General Appearance: Alert, Oriented X3, Cooperative, No Acute Distress Cardiovascular: Normal S1, Normal S2, No Murmurs Lungs: Clear to Auscultation, Normal Air Movement Abdomen: Normal Bowel Sounds, Soft, No Tenderness Extremities: No Cyanosis, No Edema, Normal Pulses Vascular: Normal Pulses Assessment/Plan Assessment: This is a 77-year-old female with past medical history of non-Hodgkin's lymphoma status post chemotherapy in 2017, recently diagnosed A. fib on metoprolol and Eliquis, COPD not on home oxygen presents to the emergency department 1 day prior to today with chief complain of ongoing diarrhea ever since she was started on metoprolol and generalized weakness. She was found to have H/H of 11.6/36.8, MCV of 66.5, electrolytes within normal limits, BUN/creatinine 9/0.6, Luke O's of 105, total bili of 1.7, EKG showed A. fib with RVR Chest x-ray showed small right pleural effusion with associated airspace opacity with possibly the presentation atelectasis versus pneumonia. Problem list along with assessment and plan Problem #1 atrial fibrillation with rapid ventricular rate. * patient's rate has been better control after initial IV Cardizem pushes. We are holding the metoprolol currently secondary to the side effect of diarrhea. * Continue Cardizem. * Cardiology consult appreciated. * possible switch to cardizem instead of metoprolol for rate control. * ct eliquis Problem #2 COPD. * Patient is currently on 2 L and will continue to maintain on that while maintaining the oxygenation > 92% * smoking cessation counselling. #3 Diarrhea. * possible secondary to side effect from metoprolol. * Continue generous hydration. * Continue to monitor BUN and creatinine. DVT prophylaxis Eliquis + ALPS Heart Healthy Diet Full Code Problem List: 1. Chronic a-fib 2. COPD (chronic obstructive pulmonary disease) 3. Chronic anemia 4. Leukocytosis 5. Symptomatic anemia Pain Ratin Pain Location: none Pain Goal: Remain pain free Pain Plan: current plan Tomorrow's Labs & Rationales: beTen Vela 04/08/18 1312: Attending MD Review Statement Attending Statement Attending MD Statement: examined this patient, discuss w/resident/PA/STRATEGIC PARTNERSHIP MANAGER, agreed w/resident/PA/STRATEGIC PARTNERSHIP MANAGER, discussed with family, reviewed EMR data (avail), discussed with nursing, discussed with case mgmt, reviewed images, amended to note Attending Assessment/Plan: Patient here with dairrhea possible secondary to medication induced. Patient had afib with RVR. Anticoagulated with eliquis. Cardiology consulted and recommend switch from metoprolol to cardizem and monitor telemetry for 24 hrs. ECHO pending. Smoking cessation advised. Anticipate dc soon.
[2018-04-08 08:23] LABS: ABSOLUTE BASOPHIL COUNT 0 /CUMM (0.0-0.2); ABSOLUTE GRANULOCYTE CT 6.2 /CUMM (1.4-6.5); MEAN CORPUSCULAR HGB 21.1 PG (27.0-31.0); MEAN CORPUSCULAR HGB CONC 31.3 G/DL (33.0-37.0); MEAN CORPUSCULAR VOLUME 67.5 FL (81.0-99.0)
[2018-04-08 09:12] LABS: ABSOLUTE EOSINOPHIL COUNT 0.1 /CUMM (0.0-0.7); ABSOLUTE LYMPH COUNT 0.6 /CUMM (1.2-3.4); ABSOLUTE MONOCYTE COUNT 0 /CUMM (0.10-0.60); BASOPHIL % 0 % (0.0-2.0); EOSINOPHIL % 1.7 % (0-5); MEAN PLATELET VOLUME 9.5 FL (7.4-10.4); PLATELET COUNT 256 /CUMM (130-400); RBC DISTRIBUTION WIDTH 17.3 % (11.5-14.5); RED BLOOD CELL CT 5.48 /CUMM (4.20-5.40); WHITE BLOOD CELL COUNT 6.9 /CUMM (4.8-10.8)
[2018-04-08 09:16] LABS: GRANULOCYTE % 89.1 % (42.2-75.2)
--- NOTE | 2018-04-08 12:00 | Cons- Cardiology ---
General Information and HPI Consulting Request Date of Consult: 04/08/18 Requested By: Ana Paula Fagan MD Reason for Consult: Atrial fibrillation Source of Information: patient, family, old records History of Present Illness: This is a 77-year-old female with a history of non-Hodgkin's lymphoma, COPD with active smoking, and recently diagnosed new onset atrial fibrillation recently started on metoprolol and Eliquis. She did not have obvious new onset symptoms from atrial fibrillation but was referred to her montessori teacher because her [employer]INTED [employer]AR[employer] BEVELER noted tachycardia on exam. The patient was doing well but after starting on metoprolol and Eliquis she noted episodes of recurrent diarrhea. She denies associated chest pain, syncope, headache, slurring of speech, or obvious bleeding. Denies any orthopnea, paroxysmal nocturnal dyspnea, or increasing edema. Allergies/Medications Allergies: Coded Allergies: azithromycin (From ZITHROMAX) (Severe, LIVER 12/24/16) Iodinated Contrast- Oral and IV Dye (IODINATED CONTRAST MEDIA - ORAL AND) (CAT SCAN DYES BURN 01/23/17) Home Med List: Apixaban (Eliquis) 5 MG TABLET 1 TAB PO BID BLOOD THINNER (Reported) Candesartan Cilexetil (Unknown Strength) TABLET (Unknown Dose) UNKNOWN ( Reported) Doxycycline Hyclate (Vibramycin) 100 MG CAPSULE 1 CAP PO BID BRONCHITIS Fluticasone/Vilanterol (Breo Ellipta 200-25 Mcg INH) 200 MCG-25 MCG/DOSE BLST.W.DEV SHORTNESS OF BREATH (Reported) Hydrochlorothiazide 12.5 MG CAPSULE 1 CAP PO DAILY DIURETIC (Reported) Iron,Carbonyl (Feosol) (Unknown Strength) TABLET (Unknown Dose) PO DAILY SUPPLEMENT (Reported) Metoprolol Succinate 50 MG TAB.ER.24H 1 TAB PO DAILY HEALTH SUPPLEMENT ( Reported) Multivitamin (Multi-Day Vitamins) 1 EACH TABLET 1 TAB PO DAILY SUPPLEMENT ( Reported) Nicotine (Nicoderm Cq) 14 MG/24 HOUR PATCH.TD24 1 PAT TOP DAILY SMOKING CESSATION (Reported) Prednisone (Deltasone) 20 MG TABLET 1 TAB PO DAILY BRONCHITIS Umeclidinium Metcalf (Incruse Ellipta) 62.5 MCG/ACTUATION BLST.W.DEV SHORTNESS OF BREATH (Reported) Current Medications: Current Medications Sig/Noreen Start time Last Medication Dose Route Stop Time Status Admin Acetaminophen 325 MG Q6P PRN 04/07 2330 AC PO Albuterol Sulfate 3 ML Q4P PRN 04/08 1130 AC INH Albuterol Sulfate 3 ML ONCE ONE 04/08 0300 DC 04/08 INH 04/08 0301 0304 Albuterol Sulfate 2 PUF Q4P PRN 04/07 2345 AC INH Albuterol Sulfate 3 ML ONCE ONE 04/07 1545 DC 04/07 INH 04/07 1546 1533 Albuterol Sulfate 0 .STK-MED ONE 04/07 1539 DC INH Apixaban 5 MG BID 04/07 2330 AC 04/08 PO 0823 Diltiazem HCl 5 MG ONCE ONE 04/08 0345 CAN IV PUSH 04/08 0346 Diltiazem HCl 30 MG Q8 04/07 2325 AC 04/08 PO 0700 Ipratropium Metcalf 2.5 ML Q4P PRN 04/08 1130 AC INH Ipratropium Metcalf 2.5 ML ONCE ONE 04/08 0245 DC 04/08 INH 04/08 0246 0304 Ipratropium Metcalf 2.5 ML ONCE ONE 04/07 1545 DC 04/07 INH 04/07 1546 1533 Metoprolol Tartrate 0 .STK-MED ONE 04/07 2058 DC IV Metoprolol Tartrate 5 MG ONCE ONE 04/07 2045 DC 04/07 IV 04/07 2046 205 Metoprolol Tartrate 0 .STK-MED ONE 04/07 1923 DC IV Metoprolol Tartrate 10 MG STAT STA 04/07 1909 DC 04/07 IV 04/07 1910 1944 Metoprolol Tartrate 5 MG ONCE ONE 04/07 1800 DC 04/07 IV 04/07 1801 1756 Metoprolol Tartrate 0 .STK-MED ONE 04/07 1757 DC IV Metoprolol Tartrate 0 .STK-MED ONE 04/07 1550 DC IV Metoprolol Tartrate 5 MG ONCE ONE 04/07 1545 DC 04/07 IV 04/07 1546 1557 Nicotine 7 MG Q24 04/08 0900 AC 04/08 TOP 0823 Tiotropium Metcalf 1 PUF DAILY 04/08 0900 AC 04/08 INH 0826 Verapamil HCl 5 MG ONE ONE 04/08 0400 DC 04/08 IV 04/08 0401 0414 Review of Systems Review of Systems: Review of systems as per HPI. The remainder of a 10 point review of systems was reviewed and was otherwise negative. Past History Travel History Traveled to [place] past 21 day No Medical History Neurological: NONE EENT: NONE Cardiovascular: AFIB, hypertension Respiratory: URI Gastrointestinal: NONE Hepatic: NONE Renal: NONE Musculoskeletal: NONE Psychiatric: NONE Endocrine: NONE Blood Disorders: anemia Cancer(s): NOHODGKINS LYMPHOMA [employer]ER/Reproductive: NONE Surgical History Surgical History: non-contributory Psychosocial History Who Do You Live With? spouse Services at Home: None Primary Language: Gibraltarian Smoking Status: Current Everyday Smoker ETOH Use: denies use Illicit Drug Use: denies illicit drug use Functional Ability ADLs Independent: dressing, eating, toileting, bathing. Ambulation: independent IADLs Independent: shopping, housework, finances, food prep, telephone, transportation , medication admin. Exam & Diagnostic Data Vital Signs and I&O Vital Signs Date Time Temp Pulse Resp B/P B/P Pulse O2 O2 Flow FiO2 Mean Ox Delivery Rate 04/08 1123 94 Nasal 3.0L Cannula 04/08 1115 Nasal 3.0L Cannula 04/08 0700 123 112/76 04/08 0641 97.9 123 20 100/83 92 Nasal 3.0L Cannula 04/08 0534 Nasal 3.5L Cannula 04/08 0428 97.6 96 18 127/84 88 Nasal 2.0L Cannula 04/08 0414 97.6 126 18 125/90 04/08 0405 97.6 126 18 125/90 93 Room Air 04/08 0304 92 Nasal 3.0L Cannula 04/07 2355 97.5 128 20 129/81 04/07 2318 97.5 128 20 129/81 95 Nasal 2.0L Cannula 04/07 2053 98.6 121 18 134/92 04/07 2051 98.6 121 18 134/92 95 Nasal 2.0L Cannula 04/07 1954 122 18 137/92 95 Nasal 2.0L Cannula 04/07 193 103 122/96 04/07 1923 18 92 Nasal 2.0L Cannula 04/07 1922 98.5 132 18 125/95 90 Room Air 04/07 1847 98.3 108 20 133/81 93 Room Air 04/07 1756 124 20 120/83 04/07 1557 98.1 138 20 131/94 04/07 1538 92 Room Air 04/07 1537 98.1 136 20 131/94 92 Room Air 04/07 1501 98.8 133 20 129/46 93 Room Air 04/07 1338 99.0 120 22 133/92 92 Room Air Intake & Output 04/08 1600 04/08 0800 04/08 0000 04/07 1600 04/07 0800 04/07 0000 Intake Total 120 Output Total Balance 120 Intake, Oral 120 Patient 160 lb 164 lb Weight Weight Bed scale Measurement Method Physical Exam: General: no apparent distress. Alert. Eyes: No obvious scleral icterus. HEENT: No jugular venous distention or abnormal jugular venous pulsations. Cardiovascular: Normal intensity S1/S2. Irregular Respiratory: Mildly decreased air entry at the right base Abdomen: Soft, nontender with no guarding or rebound tenderness. Musculoskeletal: No clubbing or cyanosis noted; no edema Skin: warm Neurologic: No gross focal deficits noted. Lymph: No gross lymphadenopathy. Labs/Benny Results: Laboratory Tests 04/08 04/08 0615 0316 Chemistry Sodium (137 - 145 mmol/L) 142 Potassium (3.5 - 5.1 mmol/L) 4.1 Chloride (98 - 107 mmol/L) 102 Carbon Dioxide (22 - 30 mmol/L) 28 Anion Gap (5 - 16) 12 BUN (7 - 17 mg/dL) 11 Creatinine (0.5 - 1.0 mg/dL) 0.7 Estimated GFR (>60 ml/min) > 60 BUN/Creatinine Ratio (7 - 25 %) 15.7 Total Bilirubin (0.2 - 1.3 mg/dL) 2.0 H Direct Bilirubin (< 0.4 mg/dL) 0.3 AST (14 - 36 U/L) 19 ALT (9 - 52 U/L) 43 Alkaline Phosphatase (<127 U/L) 99 Troponin I (< 0.11 ng/ml) < 0.01 Total Protein (6.3 - 8.2 g/dL) 5.6 L Albumin (3.5 - 5.0 g/dL) 3.9 Hematology CBC w Diff NO MAN DIFF REQ WBC (4.8 - 10.8 /CUMM) 6.9 RBC (4.20 - 5.40 /CUMM) 5.48 H Hgb (12.0 - 16.0 G/DL) 11.6 L Hct (37 - 47 %) 37.0 MCV (81.0 - 99.0 FL) 67.5 L MCH (27.0 - 31.0 PG) 21.1 L MCHC (33.0 - 37.0 G/DL) 31.3 L RDW (11.5 - 14.5 %) 17.3 H Plt Count (130 - 400 /CUMM) 256 MPV (7.4 - 10.4 FL) 9.5 Gran % (42.2 - 75.2 %) 89.1 H Lymphocytes % (20.5 - 51.1 %) 8.8 L Monocytes % (1.7 - 9.3 %) 0.4 L Eosinophils % (0 - 5 %) 1.7 Basophils % (0.0 - 2.0 %) 0 Absolute Granulocytes (1.4 - 6.5 /CUMM) 6.2 Absolute Lymphocytes (1.2 - 3.4 /CUMM) 0.6 L Absolute Monocytes (0.10 - 0.60 /CUMM) 0 L Absolute Eosinophils (0.0 - 0.7 /CUMM) 0.1 Absolute Basophils (0.0 - 0.2 /CUMM) 0 04/07 1715 Urines Urine Color (YEL,AMB,STR) YEL Urine Clarity (CLEAR) CLEAR Urine pH (5.0 - 8.0) 6.0 Ur Specific [place] (1.001 - 1.035) <= 1.005 Urine Protein (NEG,<30 MG/DL) NEG Urine Ketones (NEG) NEG Urine Nitrite (NEG) NEG Urine Bilirubin (NEG) NEG Urine Urobilinogen (0.1 - 1.0 EU/dl) 0.2 Ur Leukocyte Esterase (NEG) NEG Ur Microscopic EXAM NOT REQUIRED Urine Hemoglobin (NEG) NEG Urine Glucose (N MG/DL) NEG 04/07 1345 Chemistry Sodium (137 - 145 mmol/L) 140 Potassium (3.5 - 5.1 mmol/L) 4.0 Chloride (98 - 107 mmol/L) 104 Carbon Dioxide (22 - 30 mmol/L) 27 Anion Gap (5 - 16) 9 BUN (7 - 17 mg/dL) 9 Creatinine (0.5 - 1.0 mg/dL) 0.6 Estimated GFR (>60 ml/min) > 60 BUN/Creatinine Ratio (7 - 25 %) 15.0 Glucose (65 - 99 mg/dL) 105 H Calcium (8.4 - 10.2 mg/dL) 10.1 Phosphorus (2.5 - 4.5 mg/dL) 3.6 Magnesium (1.6 - 2.3 mg/dL) 2.0 Total Bilirubin (0.2 - 1.3 mg/dL) 1.7 H AST (14 - 36 U/L) 23 ALT (9 - 52 U/L) 46 Alkaline Phosphatase (<127 U/L) 97 Troponin I (< 0.11 ng/ml) < 0.01 Total Protein (6.3 - 8.2 g/dL) 5.5 L Albumin (3.5 - 5.0 g/dL) 3.8 Globulin (1.9 - 4.2 gm/dL) 1.7 L Albumin/Globulin Ratio (1.1 - 2.2 %) 2.2 TSH (0.270 - 4.200 uIU/mL) 1.080 Coagulation D-Dimer High Sensitivty (0 - 243 ng/ml) < 200 Hematology CBC w Diff MAN DIFF ORDERED WBC (4.8 - 10.8 /CUMM) 6.9 RBC (4.20 - 5.40 /CUMM) 5.53 H Hgb (12.0 - 16.0 G/DL) 11.6 L Hct (37 - 47 %) 36.8 L MCV (81.0 - 99.0 FL) 66.5 L MCH (27.0 - 31.0 PG) 21.0 L MCHC (33.0 - 37.0 G/DL) 31.6 L RDW (11.5 - 14.5 %) 17.9 H Plt Count (130 - 400 /CUMM) 242 MPV (7.4 - 10.4 FL) 8.6 Segmented Neutrophils (42.2 - 75.2 %) 80 H Lymphocytes (20.5 - 51.1 %) 9 L Monocytes (1.7 - 9.3 %) 9 Eosinophils (0 - 5.0 %) 1 Basophils (0.0 - 2.0 %) 1 Nucleated RBCs (0.0 - 0.0 /100WBC) 1 H Platelet Estimate (ADEQUATE) VERIFIED BY SMEAR Polychromasia 1+ Hypochromic-Microcytic 2+ Poikilocytosis 1+ Basophilic Stippling 1+ Anisocytosis 1+ Microcytic Cells 2+ Ovalocytes 1+ Diagnostic Data EKG Results Tracing was personally reviewed and shows atrial fibrillation with rapid ventricular response rate normal R-wave progression CXR Results Small right pleural effusion with associated airspace opacity which could represent atelectasis or pneumonia. Minimal retrocardiac atelectasis. Other Results Telemetry tracings were personally reviewed and show atrial fibrillation with rapid ventricular response rate Assessment/Plan Assessment/Plan 1. Diarrhea 2. Recently diagnosed atrial fibrillation with rapid ventricular response rate; started on beta-stephen and Eliquis as an outpatient 3. COPD with active smoking 4. History of non-Hodgkin's lymphoma Patient feels well overall other than her diarrhea. She believes this may have been a side effect from the metoprolol and agree with switching to oral Cardizem while monitoring her ventricular response rate. Would obtain a transthoracic echocardiogram. Will continue on twice daily Eliquis. Critical importance of smoking cessation discussed. Andre Bunn MD [facility] Consult Acknowledgment - Thank you for your consult request.
[2018-04-08 14:34] VITALS: BP 114/68
[2018-04-08 22:42] VITALS: BP 122/78
[2018-04-08 23:27] VITALS: BP 110/80
--- NOTE | 2018-04-09 06:28 | PN- Housestaff ---
GauriandreaChuckjamil 04/09/18 0628: Subjective Follow-up For: A fib with RVR Complaints: no complaints Tele-Events Since Last Visit: A fib with RVR rate trendign between 125 to 140 lucy since last night Subjective: I have seen and examined the patient today morning, she does not seem to have any active complaints, she slept decently last night, however her heart rate continues to be on the higher side, might need increased dose of Cardizem for better rate control, with touch base with cardiology otherwise vitals stable, no other issues. Review of Systems Constitutional: Reports: see HPI. Objective Last 24 Hrs of Vital Signs/I&O Vital Signs Date Time Temp Pulse Resp B/P B/P Pulse O2 O2 Flow FiO2 Mean Ox Delivery Rate 04/09 0647 97.3 118 18 116/64 91 Nasal Cannula 04/09 0528 133 116/64 04/09 0107 130 128/82 04/09 0000 92 Nasal 2.0L Cannula 04/08 2327 132 110/80 04/08 2242 98.3 122 16 122/78 92 Nasal Cannula 04/08 2102 120 128/88 04/08 1945 93 Nasal 3.0L Cannula 04/08 1600 Nasal 3.0L Cannula 04/08 1434 97.5 118 20 114/68 96 Nasal Cannula 04/08 1321 124 110/64 04/08 1123 94 Nasal 3.0L Cannula 04/08 1115 Nasal 3.0L Cannula Intake & Output 04/09 1600 04/09 0800 04/09 0000 Intake Total 220 220 Output Total Balance 220 220 Intake, Oral 220 220 Physical Exam General Appearance: Alert, Oriented X3, Cooperative, No Acute Distress Skin: No Rashes, No Breakdown Skin Temp/Moisture Exam: Warm/Dry HEENT: Atraumatic, PERRLA, EOMI Neck: Supple, No JVD Cardiovascular: Normal S1, Normal S2, tacycardia Lungs: Clear to Auscultation, Normal Air Movement Abdomen: Normal Bowel Sounds, Soft, No Tenderness, No Hepatospenomegaly Current Medications: Current Medications Sig/Noreen Start time Last Medication Dose Route Stop Time Status Admin Acetaminophen 325 MG Q6P PRN 04/07 2330 AC PO Albuterol Sulfate 3 ML Q4P PRN 04/08 1130 AC INH Albuterol Sulfate 2 PUF Q4P PRN 04/07 2345 AC INH Apixaban 5 MG BID 04/07 2330 AC 04/09 PO 0833 Digoxin 0.25 MG Q12 04/09 1015 AC PO 04/09 2101 Diltiazem HCl 60 MG Q8 04/09 1400 CAN PO Diltiazem HCl 30 MG ONCE ONE 04/09 1000 DC PO 04/09 1001 Diltiazem HCl 5 MG ONCE ONE 04/09 0045 CAN IV PUSH 04/09 0046 Diltiazem HCl 30 MG ONCE ONE 04/09 0045 DC 04/09 PO 04/09 0046 0107 Diltiazem HCl 30 MG Q8 04/07 2325 DC 04/09 PO 0528 Ipratropium Knifley 2.5 ML Q4P PRN 04/08 1130 AC INH Losartan Potassium 25 MG DAILY 04/09 1030 AC PO Metoprolol Tartrate 25 MG BID 04/09 1018 UNVr PO Nicotine 7 MG Q24 04/08 0900 AC 04/09 TOP 0833 Tiotropium Knifley 1 PUF DAILY 04/08 0900 AC 04/09 INH 0833 Last 24 Hrs of Lab/Benny Results Last 24 Hrs of Labs/Mics: Laboratory Tests 04/09/18 0616: Anion Gap 10, Estimated GFR > 60, BUN/Creatinine Ratio 14.3, Total Bilirubin 1.8 H, Direct Bilirubin 0.2, AST 17, ALT 37, Alkaline Phosphatase 89, Total Protein 5.3 L, Albumin 3.6 Lines/Diet/Fluids Restraints: none Assessment/Plan Assessment: Problem list along with assessment and plan #1 Atrial fibrillation with rapid ventricular rate #2 Tachycardia induced cardiomyopathy #3 Systolic heart failure with EF of 35% * Patient's heart rate continues to be on the higher side, received 30 mg of Cardizem by mouth overnight, average heart rate in last 12-24 hours seems to be around 125 raising up to 140. * It was deemed that the diarrhea could have been a possibility of the actual event component of metoprolol and not the actual metoprolol drug itself. We will change metoprolol succinate to metoprolol tartrate as the patient echocardiogram showed ejection fraction of 30-35% compared to previous 65% and this could be secondary to tachycardia induced cardiomyopathy. * In this setting beta stephen would be more helpful. * Discontinue Cardizem. * Restart metoprolol tartrate at the same dosage 25 twice a day. * Continue to monitor for any side effects. * I'll start loading dose of 0.25 g of digoxin followed by 0.125 of maintenance dose. * We will also add losartan in the setting of left ventricular dysfunction. * Continue to monitor electrolytes. * Might need a repeat echo at a later point once tachycardia is resolved to monitor for cardiac functioning. * Cardiology input appreciated. * ct eliquis #4 COPD. * Patient is currently on 2 L and will continue to maintain on that while maintaining the oxygenation > 92% * smoking cessation counselling. #3 Diarrhea. * possible secondary to side effect from adjuvant component of metoprolol and not hte drug itself. * Continue generous hydration. * Continue to monitor BUN and creatinine. DVT prophylaxis Eliquis + ALPS Heart Healthy Diet Full Code Problem List: 1. Symptomatic anemia 2. Leukocytosis 3. Chronic anemia 4. COPD (chronic obstructive pulmonary disease) 5. Chronic a-fib Pain Ratin Pain Location: .. Pain Goal: Remain pain free Pain Plan: current mx Tomorrow's Labs & Rationales: [place] 04/09/18 1344: Attending MD Review Statement Attending Statement Attending MD Statement: examined this patient, discuss w/resident/PA/MEDICAL SUPERINTENDENT, agreed w/resident/PA/MEDICAL SUPERINTENDENT, discussed with family, reviewed EMR data (avail), discussed with nursing, discussed with case mgmt, reviewed images, amended to note Attending Assessment/Plan: Patient only c/o shortness of breath on exertion. Her HR uncontrolled. Cardiology recommned switch back to metoprolol but different formula. Also added digoxin low dose and Melvin inhibtor for optimisation of cardiac meds. Continue monitor on telmetry and follow cardiology recommendations.
[2018-04-09 06:47] VITALS: BP 116/64
--- NOTE | 2018-04-09 10:03 | ECHOCARDIOGRAM REPORT ---
JONO ACEVEDO Age: 77 : 1940 Gender: F Exam Date: 04/08/2018 19:56 Exam Location: [address] Ht (in): 64 Wt (lb): 160 BSA: 1.83 BP: 114 / 68 Ordering Physician: Meggan Wilson MD Referring Physician: Lorenzo Bunn M.D. Technologist: Maia Romano RDCS Room Number: 182 Indications: AFIB/FLUTTER Rhythm: Atrial fibrillation Technical Quality: Poor FINDINGS Left Ventricle Normal size left ventricle. Moderately abnormal left ventricular ejection fraction estimated at 30-35%. Right Ventricle Right ventricular hypokinesis. Right Atrium Normal right atrial size. Left Atrium Moderate left atrial dilatation. Mitral Valve Mild mitral annular calcification. [id number] mitral regurgitation. Aortic Valve Diffuse thickening (sclerosis) of the aortic valve cusps without reduced excursion. Tricuspid Valve Tricuspid valve is normal in structure and function. Mild-to- moderate tricuspid regurgitation. Right ventricular systolic pressure estimated to be at upper limits of normal at 30 mmHg. Pulmonic Valve Pulmonic valve not well visualized, grossly normal. Pericardium No pericardial effusion. Great Vessels Normal size aortic root. CONCLUSIONS Moderately reduced left ventricular systolic function. Decreased Right ventricular function. Left atrial enlargement. Moderate to severe Mitral Regurgitation. Abrahan Zhong M.D. (Electronically Signed) Final Date: 09 Apr 2018 10:02 MEASUREMENTS (Male / Female) Normal Values 2D ECHO LV Diastolic Diameter PLAX 5.1 cm 4.2 - 5.9 / 3.9 - 5.3 cm LV Systolic Diameter PLAX 3.7 cm 2.1 - 4.0 cm LV Fractional Shortening PLAX 27.5 % 25 - 46 % LV Ejection Fraction 2D Teich 53.1 % IVS Diastolic Thickness 1.1 cm LVPW Diastolic Thickness 1.0 cm LV Relative Wall Thickness 0.4 RV Internal Dim ED PLAX 2.8 cm 1.9 - 3.8 cm LVOT Diameter 2.0 cm Aortic Root Diameter 2.9 cm LA Systolic Diameter LX 4.7 cm 3.0 - 4.0 / 2.7 - 3.8 cm LA Volume 78.0 cm 18 - 58 / 22 - 52 cm Ascending Aorta Diameter 3.8 cm DOPPLER AV Peak Velocity 149.0 cm/s AV Peak Gradient 8.9 mmHg AV Mean Velocity 110.0 cm/s AV Mean Gradient 5.0 mmHg AV Velocity Time Integral 27.7 cm LVOT Peak Velocity 98.5 cm/s LVOT Peak Gradient 3.9 mmHg LVOT Mean Velocity 65.8 cm/s LVOT Mean Gradient 2.0 mmHg LVOT Velocity Time Integral 14.3 cm LVOT Stroke Volume 44.9 cm AV Area Cont Eq vti 1.6 cm AV Area Cont Eq pk 2.1 cm MV Peak Velocity 113.0 cm/s MV Peak Gradient 5.1 mmHg MV Mean Velocity 62.5 cm/s MV Mean Gradient 2.0 mmHg Mitral E Point Velocity 107.0 cm/s MV PHT Velocity 118.0 cm/s MV Deceleration [place] 659.0 cm/s MV Pressure Half Time 53.7 ms MV Area PHT 4.1 cm MV Deceleration Time 143.0 ms MR Peak Velocity 466.0 cm/s MR Peak Gradient 86.9 mmHg MR ERO PISA 0.3 cm MR Regurgitant Volume PISA 34.3 cm TR Peak Velocity 251.0 cm/s TR Peak Gradient 25.2 mmHg Right Atrial Pressure 5.0 mmHg Pulmonary Artery Systolic Pressu 30.2 mmHg Right Ventricular Systolic Press 30.2 mmHg PV Peak Velocity 95.0 cm/s PV Peak Gradient 3.6 mmHg PV Mean Velocity 59.9 cm/s PV Mean Gradient 2.0 mmHg PV Velocity Time Integral 15.4 cm LV E' Lateral Velocity 13.4 cm/s Mitral E to LV E' Lateral Ratio 8.0 LV E' Septal Velocity 13.3 cm/s Mitral E to LV E' Septal Ratio 8.0
--- NOTE | 2018-04-09 10:11 | PN- Cardiology ---
Subjective Subjective: Telemetry reviewed. Atrial fibrillation with rapid rate of 120-130. Patient claims to feel okay. Objective Vital Signs and I&Os Vital Signs Date Time Temp Pulse Resp B/P B/P Pulse O2 O2 Flow FiO2 Mean Ox Delivery Rate 04/09 0647 97.3 118 18 116/64 91 Nasal Cannula 04/09 0528 133 116/64 04/09 0107 130 128/82 04/09 0000 92 Nasal 2.0L Cannula 04/08 2327 132 110/80 04/08 2242 98.3 122 16 122/78 92 Nasal Cannula 04/08 2102 120 128/88 04/08 1945 93 Nasal 3.0L Cannula 04/08 1600 Nasal 3.0L Cannula 04/08 1434 97.5 118 20 114/68 96 Nasal Cannula 04/08 1321 124 110/64 04/08 1123 94 Nasal 3.0L Cannula 04/08 1115 Nasal 3.0L Cannula Intake & Output 04/09 1600 04/09 0800 04/09 0000 04/08 1600 04/08 0800 04/08 0000 Intake Total 220 220 500 120 Output Total Balance 220 220 500 120 Intake, Oral 220 220 500 120 Number 2 Bowel Movements Patient 160 lb Weight Weight Bed scale Measurement Method Physical Exam: On general exam patient appears comfortable but somewhat anxious Head normocephalic/atraumatic Eyes sclera anicteric conjunctiva showed no pallor extraocular muscles were normal Neck no jugular venous distention no thyroid masses no palpable nodes Chest lungs revealed scattered wheezes and scattered crepitations. Heart irregular rhythm with a ventricular rate around 110-120. Abdomen soft no organomegaly bowel sounds normal Extremities no clubbing cyanosis or edema Neurological no gross motor or sensory deficits Current Medications: Current Medications Sig/Noreen Start time Last Medication Dose Route Stop Time Status Admin Acetaminophen 325 MG Q6P PRN 04/07 2330 AC PO Albuterol Sulfate 3 ML Q4P PRN 04/08 1130 AC INH Albuterol Sulfate 2 PUF Q4P PRN 04/07 2345 AC INH Apixaban 5 MG BID 04/07 2330 AC 04/09 PO 0833 Digoxin 0.25 MG Q12 04/09 1015 UNVr PO 04/09 2101 Diltiazem HCl 60 MG Q8 04/09 1400 AC PO Diltiazem HCl 30 MG ONCE ONE 04/09 1000 DC PO 04/09 1001 Diltiazem HCl 5 MG ONCE ONE 04/09 0045 CAN IV PUSH 04/09 0046 Diltiazem HCl 30 MG ONCE ONE 04/09 0045 DC 04/09 PO 04/09 46 0107 Diltiazem HCl 30 MG Q8 04/07 2325 DC 04/09 PO 0528 Ipratropium [place] 2.5 ML Q4P PRN 04/08 1130 AC INH Nicotine 7 MG Q24 04/08 0900 AC 04/09 TOP 0833 Tiotropium [place] 1 PUF DAILY 04/08 0900 AC 04/09 INH 0833 Results Last 48 Hrs of Labs/Mics: Laboratory Tests 04/09/18 0616: Anion Gap 10, Estimated GFR > 60, BUN/Creatinine Ratio 14.3, Total Bilirubin 1.8 H, Direct Bilirubin 0.2, AST 17, ALT 37, Alkaline Phosphatase 89, Total Protein 5.3 L, Albumin 3.6 04/08/18 0615: Anion Gap 12, Estimated GFR > 60, BUN/Creatinine Ratio 15.7, Total Bilirubin 2.0 H, Direct Bilirubin 0.3, AST 19, ALT 43, Alkaline Phosphatase 99, Total Protein 5.6 L, Albumin 3.9, CBC w Diff NO MAN DIFF REQ, RBC 5.48 H, MCV 67.5 L, MCH 21.1 L, MCHC 31.3 L, RDW 17.3 H, MPV 9.5, Gran % 89.1 H, Lymphocytes % 8.8 L, Monocytes % 0.4 L, Eosinophils % 1.7, Basophils % 0, Absolute Granulocytes 6.2, Absolute Lymphocytes 0.6 L, Absolute Monocytes 0 L, Absolute Eosinophils 0.1, Absolute Basophils 0 04/08/18 0316: Troponin I < 0.01 04/07/18 1715: Urine Color YEL, Urine Clarity CLEAR, Urine pH 6.0, Ur Specific [place] <= 1.005 , Urine Protein NEG, Urine Ketones NEG, Urine Nitrite NEG, Urine Bilirubin NEG, Urine Urobilinogen 0.2, Ur Leukocyte Esterase NEG, Ur Microscopic EXAM NOT REQUIRED, Urine Hemoglobin NEG, Urine Glucose NEG 04/07/18 1345: Anion Gap 9, Estimated GFR > 60, BUN/Creatinine Ratio 15.0, Glucose 105 H, Calcium 10.1, Phosphorus 3.6, Magnesium 2.0, Total Bilirubin 1.7 H, AST 23, ALT 46, Alkaline Phosphatase 97, Troponin I < 0.01, Total Protein 5.5 L, Albumin 3.8, Globulin 1.7 L, Albumin/Globulin Ratio 2.2, TSH 1.080, D-Dimer High Sensitivty < 200, CBC w Diff MAN DIFF ORDERED, RBC 5.53 H, MCV 66.5 L, MCH 21.0 L, MCHC 31.6 L, RDW 17.9 H, MPV 8.6, Segmented Neutrophils 80 H, Lymphocytes 9 L, Monocytes 9, Eosinophils 1, Basophils 1, Nucleated RBCs 1 H, Platelet Estimate VERIFIED BY SMEAR, Polychromasia 1+, Hypochromic-Microcytic 2+ , Poikilocytosis 1+, Basophilic Stippling 1+, Anisocytosis 1+, Microcytic Cells 2+, Ovalocytes 1+ Assessment/Plan Assessment/Plan In summary this 77-year-old female with the following problems1. Diarrhea 2. Recently diagnosed atrial fibrillation with rapid ventricular response rate; started on beta-stephen and Eliquis as an outpatient 3. COPD with active smoking 4. History of non-Hodgkin's lymphoma Her diarrhea has recovered she attributes this to metoprolol although this is somewhat uncommon side effect from the drug. 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 She would need beta-blockers for left ventricle dysfunction and diltiazem would be inappropriate considering her left ventricular dysfunction. I would substitute metoprolol tartrate with metoprolol succinate or vice versa and I believe it may not be the active drug that is causing her diarrhea. We will also add digoxin to her current medication list to decrease heart rate. She needs to be started on an angiotensin receptor stephen for cardiomyopathy and candesartan 4 mg a day to initiate treatment would be suggested. Continue telemetry? Yes
[2018-04-09 14:34] VITALS: BP 110/80
[2018-04-09 23:23] VITALS: BP 122/80
[2018-04-10 06:43] VITALS: BP 120/86
--- NOTE | 2018-04-10 07:39 | PN- Housestaff ---
Chuck Wilsonjamil 04/10/18 0739: Subjective Follow-up For: A fib with RVR Complaints: no complaints Tele-Events Since Last Visit: A fib with rate between 125 average, overnight has been > 120 Subjective: I have seen and examined the patient today morning. She seems to be doing better however continues to have diarrhea along with some cough with white clear sputum production. She requested something to help her with her cough and, controlled. Other than that she slept okay last night. She has been tolerating her breakfast fine.she continues to be on 2 L of oxygen saturating about 96%, her vitals are stable, she remains afebrile overnight. Review of Systems Constitutional: Reports: see HPI. Objective Last 24 Hrs of Vital Signs/I&O Vital Signs Date Time Temp Pulse Resp B/P B/P Pulse O2 O2 Flow FiO2 Mean Ox Delivery Rate 04/10 0643 98.1 116 20 120/86 92 Room Air 04/09 2323 98.3 118 20 122/80 92 Room Air 04/09 210 71 110/80 04/09 2104 71 110/80 04/09 2015 93 Room Air Room Air 04/09 1434 97.6 71 18 110/80 94 Room Air 04/09 1149 120/88 04/09 1148 135 120/88 04/09 1148 135 120/88 04/09 1055 18 93 Room Air Intake & Output 04/10 0800 04/10 0000 04/09 1600 Intake Total 440 300 Output Total Balance 440 300 Intake, Oral 440 300 Number 2 Bowel Movements Patient 78.245 kg Weight Weight Bed scale Measurement Method Physical Exam General Appearance: Alert, Oriented X3, Cooperative, No Acute Distress Skin: No Rashes, No Breakdown Cardiovascular: Normal S1, Normal S2, tachycardic Lungs: Clear to Auscultation, Normal Air Movement Abdomen: Normal Bowel Sounds, Soft, No Tenderness, No Hepatospenomegaly Current Medications: Current Medications Sig/Noreen Start time Last Medication Dose Route Stop Time Status Admin Acetaminophen 325 MG Q6P PRN 04/07 2330 AC PO Albuterol Sulfate 3 ML Q4P PRN 04/08 1130 AC INH Albuterol Sulfate 2 PUF Q4P PRN 04/07 2345 AC INH Apixaban 5 MG BID 04/07 2330 AC 04/09 PO 2104 Digoxin 0.25 MG Q12 04/09 1015 DC 04/09 PO 04/09 2101 2105 Diltiazem HCl 60 MG Q8 04/09 1400 CAN PO Diltiazem HCl 30 MG ONCE ONE 04/09 1000 DC PO 04/09 1001 Diltiazem HCl 30 MG Q8 04/07 2325 DC 04/09 PO 0528 Ipratropium [place] 2.5 ML Q4P PRN 04/08 1130 AC INH Losartan Potassium 25 MG DAILY 04/09 1030 AC 04/09 PO 1148 Metoprolol Tartrate 25 MG BID 04/09 1018 AC 04/09 PO 2104 Nicotine 7 MG Q24 04/08 0900 AC 04/09 TOP 0833 Tiotropium [place] 1 PUF DAILY 04/08 0900 AC 04/09 INH 0833 Last 24 Hrs of Lab/Benny Results Last 24 Hrs of Labs/Mics: Laboratory Tests 04/10/18 0704: Sodium Pending, Potassium Pending, Chloride Pending, Carbon Dioxide Pending, Anion Gap Pending, BUN Pending, Creatinine Pending, BUN/Creatinine Ratio Pending Lines/Diet/Fluids Restraints: none Assessment/Plan Assessment: Ms Mckeon is a 77-year-old female with past medical history of non-Hodgkin's lymphoma status post chemotherapy in September 2017, atrial fibrillation on metoprolol/Eliquis, COPD not on home oxygen, presented to the emergency department on March with chief complaint of diarrhea relating to the start of metoprolol along with generalized weakness and fatigue. The admission chest x-ray showed small right pleural effusion associated with air space opacity and EKG showed A. fib with RVR, she received 1 g of IV metoprolol in the emergency department and she was initially started on Cardizem 30 mg 3 times daily and metoprolol was discontinued due to the side effect of diarrhea. Upon investigation on echocardiogram she was found to have systolic heart failure with ejection fraction of 30-35% and her tachycardia was deemed to be present for at least 3-4 weeks prior to presentation. In this scenario Cardizem was not a good drug, she was switched back to a different formulation of metoprolol, loaded with digoxin and started on losartan for better rate control. A repeat chest x-ray showed worsening pleural effusion on the right side. She continued to have diarrhea, being on a different formulation of metoprolol. Stool was also sent for Clostridium difficile. If she continues to have diarrhea then plan is to change her to a different beta stephen perhaps carvedilol or bisoprolol. She was also found to have cardiomyopathy possibly secondary to tachycardia and will eventually need an outpatient nuclear stress test. A repeat chest x-ray today showed increased size of right pleural effusion, plan is to touch base with cardiology if there is any role of diuresing her. Problem list along with assessment and plan Problem #1 diarrhea/generalized weakness. * She came with chief complaint of diarrhea, correlated with the start of metoprolol. * continues to have diarrhea in spite of different formulation of metoprolol. * If continues to have more episodes of diarrhea, plan is to switch metoprolol to carvedilol or bisoprolol * C. difficile cultures sent, continue to follow. * If C. difficile negative, can use Imodium to control diarrhea. * plenty of fluids by mouth #2 Atrial fibrillation with rapid ventricular rate * Until today morning, the rate has not been very well controlled. * We will load her with 0.5 mg of digoxin 2 and continue the maintenance dose of 0.125 mg. * Continue losartan * Continue rate control with metoprolol, continues to have diarrhea and then consider switching to carvedilol or bisoprolol, avoid Cardizem. #3 Tachycardia induced cardiomyopathy * Echocardiogram showed EF of 30-35%, right ventricular hypokinesia with moderate to severe mitral regurgitation. * Rate control is very significant at this stage, continue to maintain heart rate less than 100. * Repeat echo at a later point. * eventual outpatient nuclear stress test. DVT prophylaxis Eliquis + ALPS Heart Healthy Diet Full Code Problem List: 1. Chronic a-fib 2. COPD (chronic obstructive pulmonary disease) 3. Mitral regurgitation 4. Cardiomyopathy Pain Ratin Pain Location: .. Pain Goal: Remain pain free Pain Plan: tylenol Tomorrow's Labs & Rationales: cbc, travis Zhong MD,Marleny 04/10/18 1044: Attending MD Review Statement Attending Statement Attending MD Statement: examined this patient, discuss w/resident/PA/[employer], agreed w/resident/PA/[employer], reviewed EMR data (avail), discussed with nursing, discussed with case mgmt, reviewed images Attending Assessment/Plan: Pt continues to complain of diarrhea and she is convinced that the metoprolol gave her the diarrhea. She also says that she doesn't feel good when she lies flat and she has to sit up straight. Her heart rate has also been an issue with rapid atrial fibrillation. She has a probable tachycardia induced cardiomyopathy with the EF showing moderately decreased LV function and RV function. We spoke to cardiology and given the tachycardia induced cardiomyopathy, Cardizem is not a good option for her and she really needs a beta stephen. Cardiology doesn't think that the metoprolol gave her the diarrhea but they're considering switching to Coreg. In the meantime we will dig load her and she is going to get 0.5 mg IV every 62 doses today. She continues on the arb and the Eliquis. We are also going to check the stool for C. difficile and follow closely.
--- NOTE | 2018-04-10 11:47 | RADIOLOGY REPORT ---
EXAMINATION: XR PORTABLE CHEST CLINICAL INFORMATION: Increasing shortness of breath COMPARISON: 04/07/2018 TECHNIQUE: Portable frontal view of the chest was obtained. FINDINGS: Since the prior study, a right-sided pleural effusion has significantly increased; it is possible that a small subpulmonic left effusion could be present. No gross pulmonary edema is seen. Heart size is mildly enlarged. IMPRESSION: Increased size of right pleural effusion. This result was discussed with Dr. Wilson and it was ascertained that the content of the report was understood at the time of direct communication.
--- NOTE | 2018-04-10 12:03 | PN- Cardiology ---
Subjective Subjective: The patient is awake, alert Telemetry demonstrates continued tachycardia (atrial fibrillation with suboptimal heart rate control) The patient states continued diarrhea this a.m. The events of the last 24 hours as well as telemetry were reviewed. Review of Systems: The review of systems is negative for chest pains, nor lightheadedness. The remainder of the 14 point review of systems is noncontributory with the exception of above. Objective Vital Signs and I&Os Vital Signs Date Time Temp Pulse Resp B/P B/P Pulse O2 O2 Flow FiO2 Mean Ox Delivery Rate 04/10 1131 93 Room Air Room Air 04/10 0831 140 124/70 04/10 0830 140 124/70 04/10 0830 140 124/70 04/10 0800 92 Room Air 04/10 0643 98.1 116 20 120/86 92 Room Air 04/09 2323 98.3 118 20 122/80 92 Room Air 04/09 2105 71 110/80 04/09 2104 71 110/80 04/09 2015 93 Room Air Room Air 04/09 1434 97.6 71 18 110/80 94 Room Air Intake & Output 04/10 1600 04/10 0800 04/10 0000 04/09 1600 04/09 0800 04/09 0000 Intake Total 440 300 220 220 Output Total Balance 440 300 220 220 Intake, Oral 440 300 220 220 Number 2 2 Bowel Movements Patient 173 lb Weight Weight Bed scale Measurement Method Physical Exam: General: Nontoxic, no apparent distress. HEENT: Sclera and conjunctiva within normal limits, without xanthelasmas. Neck: Carotids 2+ without bruits. Respiratory: Scattered rhonchi, air movement is good, without accessory respiratory muscle use. Heart: Irregularly irregular rate and rhythm, 2 out of 6 systolic ejection murmur left sternal border, without JVD. Abdomen: Soft, nontender, no masses, normoactive bowel sounds. Extremities: Without clubbing, cyanosis. Neuro: Nonfocal exam, strength, 5 out of 5 Skin: Within normal limits without lesions. Psych: Mood and affect: Normal Current Medications: Current Medications Sig/Noreen Start time Last Medication Dose Route Stop Time Status Admin Acetaminophen 325 MG Q6P PRN 04/07 2330 AC PO Albuterol Sulfate 3 ML Q4P PRN 04/08 1130 AC INH Albuterol Sulfate 2 PUF Q4P PRN 04/07 2345 AC INH Apixaban 5 MG BID 04/07 2330 AC 04/10 PO 0830 Benzonatate 100 MG TIDPRN PRN 04/10 1100 AC PO Digoxin 0.5 MG Q6 04/10 1200 AC IV 04/10 1801 Digoxin 0.25 MG Q12 04/09 1015 DC 04/09 PO 04/09 2101 2105 Guaifenesin 10 ML Q6P PRN 04/10 1045 AC PO Ipratropium [place] 2.5 ML Q4P PRN 04/08 1130 AC INH Losartan Potassium 25 MG DAILY 04/09 1030 AC 04/10 PO 0830 Metoprolol Tartrate 5 MG ONCE ONE 04/10 0815 DC 04/10 IV 04/10 0816 0831 Metoprolol Tartrate 25 MG BID 04/09 1018 AC 04/10 PO 0830 Nicotine 7 MG Q24 04/08 0900 AC 04/10 TOP 0830 Tiotropium [place] 1 PUF DAILY 04/08 0900 AC 04/10 INH 0830 Results Last 48 Hrs of Labs/Mics: Laboratory Tests 04/10/18 0704: Anion Gap 9, Estimated GFR > 60, BUN/Creatinine Ratio 17.1 04/09/18 0616: Anion Gap 10, Estimated GFR > 60, BUN/Creatinine Ratio 14.3, Total Bilirubin 1.8 H, Direct Bilirubin 0.2, AST 17, ALT 37, Alkaline Phosphatase 89, Total Protein 5.3 L, Albumin 3.6 Assessment/Plan Assessment/Plan 1. Atrial fibrillation with rapid ventricular response 2. COPD 3. Non-Hodgkin's lymphoma 4. Diarrhea 5. Cardiomyopathy: LVEF 30-35%. 6. Moderate to severe mitral regurgitation Atrial fibrillation: By history, the patient has had atrial fibrillation likely for approximately 3 weeks. The etiology of her atrial fibrillation may be secondary to underlying COPD; however, given the findings of moderate to severe mitral regurgitation, there is a likely significant underlying valvular etiology. Her heart rate is suboptimally controlled. She would require a transesophageal guided cardioversion if needed. As her heart rate is not well controlled, I would attempt to add digoxin to her regimen with a load for improved control. Given her cardiomyopathy, long-acting metoprolol (succinate) would be an ideal choice; however, she believes this may have triggered her diarrhea. We will continue attempts at heart rate control with metoprolol. If diarrhea persists, we may as well consider changing her regimen to carvedilol or bisoprolol. If suboptimal heart rate control persists, a YUMIKO based cardioversion should be considered, especially given her underlying cardiomyopathy. Cardiomyopathy: The etiology of her underlying cardiomyopathy is unclear; however, may well be secondary to a tachycardia induced cardiomyopathy with atrial fibrillation and poor heart rate control. We will reassess this several weeks following rate control achievement. Underlying ischemia must as well be excluded, and once heart rate control is attained, further workup including nuclear stress testing will be performed. We will continue with losartan as well as the remainder of her regimen. Mitral regurgitation: The patient has moderate to severe mitral regurgitation by recent echocardiography. Given her presence of atrial fibrillation, further consideration for valvular repair must be considered. Once her heart rate control is improved and following a repeat echocardiogram, if the mitral regurgitation degree is not seen as improved, further discussions regarding this will be undertaken. Continue telemetry? Yes
--- NOTE | 2018-04-10 14:03 | Patient Discharge Instructions ---
Acute Coronary Syndrome Inclusion Criteria At DC or during hospital stay patient has or had the following: ACS DIAGNOSIS No Discharge Core Measures Meds if any: Prescribed or Continued at Discharge Meds if any: NOT Prescribed or Continued at Discharge Congestive Heart Failure Inclusion Criteria At DC or during hospital stay patient has or had the following: CHF DIAGNOSIS No Discharge Core Measures Meds if any: Prescribed or Continued at Discharge Meds if any: NOT Prescribed or Continued at Discharge Cerebrovascular accident Inclusion Criteria At DC or during hospital stay patient has or had the following: CVA/TIA Diagnosis No Discharge Core Measures Meds if any: Prescribed or Continued at Discharge Meds if any: NOT Prescribed or Continued at Discharge Venous thromboembolism Inclusion Criteria VTE Diagnosis No VTE Type NONE VTE Confirmed by (Test) NONE Discharge Core Measures - Per Current guidelines, there needs to be overlap - treatment for the first 5 days of Warfarin therapy. - If discharged on Warfarin prior to 5 days of - overlap therapy, the patient will need to be - assessed for post discharge needs including - *Post discharge parental anticoagulation - *Warfarin and/or parental anticoagulation education - *Follow up date to check INR post discharge At least 5 days overlap therapy as Inpatient No Meds if any: Prescribed or Continued at Discharge Note: Overlap Therapy is Warfarin and Anticoagulant Meds if any: NOT Prescribed or Continued at Discharge
--- NOTE | 2018-04-10 14:22 | Discharge Summary ---
Visit Information Visit Dates Admission Date: 04/07/18 Hospital Course Course Attending Physician: Ten Chandler MD Primary Care Physician: Nolan QUINTANA,[facility] Course: is a 77-year-old female with past medical history of non-Hodgkin's lymphoma status post chemotherapy in September 2017, atrial fibrillation on metoprolol in the pelvis, COPD not on home oxygen, came in with chief complaint of evaluation of ongoing diarrhea ever since she started new medication of metoprolol for rate control. 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 She was also found to have rapid ventricular rate and therefore she was admitted to telemetry floor for evaluation of her ongoing diarrhea along with atrial fibrillation with rapid ventricular rate. On presentation at the emergency department she was afebrile, heart rate of overt around 108 went up to 136, her respiratory rate was 18, blood pressure was 135 systolic and 90 diastolic, she was saturating 95% on 2 L of nasal cannula. Relevant labs on presentation, she didn't H/H of 11.6/36.8 with MCV of 66.5. On EKG she was found to be in atrial fibrillation with a rate of 130. Chest x-ray showed small right pleural effusion with associated airspace opacity. She received 1 g of IV metoprolol in the emergency department and she was initially started on Cardizem 30 mg 3 times daily and metoprolol was discontinued due to the side effect of diarrhea. Upon investigation an echocardiogram she was found to have an ejection fraction of 30-35% compared to her previous echo with ejection fraction was 60-65% which was deemed to be secondary to tachycardia present for 3-4 weeks prior to presentation. It was also thought that the diarrhea could be from the metoprolol preparation and not actual drug itself therefore the formulation of metoprolol was changed. She was loaded with digoxin 0.5 mg and continued on maintenance of 0.125 mg. Losartan was also added to manage her symptoms along with rapid ventricular rate. Problem list along with assessment and plan # 1 diarrhea associated with generalized weakness. #2 atrial fibrillation with rapid ventricular rate. #3 tachycardia-induced cardiomyopathy. #4 moderate to severe mitral regurgitation. # 5 COPD. #6 productive cough with sputum. Allergies: Coded Allergies: azithromycin (From ZITHROMAX) (Severe, LIVER 12/24/16) Iodinated Contrast- Oral and IV Dye (IODINATED CONTRAST MEDIA - ORAL AND) (CAT SCAN DYES BURN 01/23/17) Significant Procedures: SERVICE DATE: 04/07/18 EXAM TYPE: RAD - XRY-CHEST XRAY, TWO VIEWS EXAMINATION: XR CHEST CLINICAL INFORMATION: Cough and shortness of breath COMPARISON: None TECHNIQUE: 2 views of the chest were obtained. FINDINGS: The lungs are well expanded. There is a small right-sided pleural effusion with associated airspace opacity. Minimal streaky retrocardiac opacity. No pneumothorax. The cardiomediastinal silhouette is prominent. Degenerative changes of the spine. IMPRESSION: Small right pleural effusion with associated airspace opacity which could represent atelectasis or pneumonia. Minimal retrocardiac atelectasis. SERVICE DATE: 04/08/18 EXAM TYPE: CARD - ECHOCARDIOGRAM OPPER, JONO Age: 77 : 1940 Gender: F Exam Date: 04/08/2018 19:56 Exam Location: [place] Ht (in): 64 Wt (lb): 160 BSA: 1.83 BP: 114 / 68 Ordering Physician: Meggan Wilson MD Referring Physician: Lorenzo Bunn M.D. Technologist: Maia Romano AMARILYS Room Number: 182 Indications: AFIB/FLUTTER Rhythm: Atrial fibrillation Technical Quality: Poor FINDINGS Left Ventricle Normal size left ventricle. Moderately abnormal left ventricular ejection fraction estimated at 30-35%. Right Ventricle Right ventricular hypokinesis. Right Atrium Normal right atrial size. Left Atrium Moderate left atrial dilatation. Mitral Valve Mild mitral annular calcification. Bdeljymk-jw-vfvcyg mitral regurgitation. Aortic Valve Diffuse thickening (sclerosis) of the aortic valve cusps without reduced excursion. Tricuspid Valve Tricuspid valve is normal in structure and function. Mild-to- moderate tricuspid regurgitation. Right ventricular systolic pressure estimated to be at upper limits of normal at 30 mmHg. Pulmonic Valve Pulmonic valve not well visualized, grossly normal. Pericardium No pericardial effusion. Great Vessels Normal size aortic root. CONCLUSIONS Moderately reduced left ventricular systolic function. Decreased Right ventricular function. Left atrial enlargement. Moderate to severe Mitral Regurgitation. Abrahan Zhong M.D. (Electronically Signed) Final Date: 09 Apr 2018 10:02 MEASUREMENTS (Male / Female) Normal Values 2D ECHO LV Diastolic Diameter PLAX 5.1 cm 4.2 - 5.9 / 3.9 - 5.3 cm LV Systolic Diameter PLAX 3.7 cm 2.1 - 4.0 cm LV Fractional Shortening PLAX 27.5 % 25 - 46 % LV Ejection Fraction 2D Teich 53.1 % IVS Diastolic Thickness 1.1 cm LVPW Diastolic Thickness 1.0 cm LV Relative Wall Thickness 0.4 RV Internal Dim ED PLAX 2.8 cm 1.9 - 3.8 cm LVOT Diameter 2.0 cm Aortic Root Diameter 2.9 cm LA Systolic Diameter LX 4.7 cm 3.0 - 4.0 / 2.7 - 3.8 cm LA Volume 78.0 cm 18 - 58 / 22 - 52 cm Ascending Aorta Diameter 3.8 cm DOPPLER AV Peak Velocity 149.0 cm/s AV Peak Gradient 8.9 mmHg AV Mean Velocity 110.0 cm/s AV Mean Gradient 5.0 mmHg AV Velocity Time Integral 27.7 cm LVOT Peak Velocity 98.5 cm/s LVOT Peak Gradient 3.9 mmHg LVOT Mean Velocity 65.8 cm/s LVOT Mean Gradient 2.0 mmHg LVOT Velocity Time Integral 14.3 cm LVOT Stroke Volume 44.9 cm AV Area Cont Eq vti 1.6 cm AV Area Cont Eq pk 2.1 cm MV Peak Velocity 113.0 cm/s MV Peak Gradient 5.1 mmHg MV Mean Velocity 62.5 cm/s MV Mean Gradient 2.0 mmHg Mitral E Point Velocity 107.0 cm/s MV PHT Velocity 118.0 cm/s MV Deceleration [place] 659.0 cm/s MV Pressure Half Time 53.7 ms MV Area PHT 4.1 cm MV Deceleration Time 143.0 ms MR Peak Velocity 466.0 cm/s MR Peak Gradient 86.9 mmHg MR ERO PISA 0.3 cm MR Regurgitant Volume PISA 34.3 cm TR Peak Velocity 251.0 cm/s TR Peak Gradient 25.2 mmHg Right Atrial Pressure 5.0 mmHg Pulmonary Artery Systolic Pressu 30.2 mmHg Right Ventricular Systolic Press 30.2 mmHg PV Peak Velocity 95.0 cm/s PV Peak Gradient 3.6 mmHg PV Mean Velocity 59.9 cm/s PV Mean Gradient 2.0 mmHg PV Velocity Time Integral 15.4 cm LV E' Lateral Velocity 13.4 cm/s Mitral E to LV E' Lateral Ratio 8.0 LV E' Septal Velocity 13.3 cm/s Mitral E to LV E' Septal Ratio 8.0 SERVICE DATE: 04/10/18- EXAM TYPE: RAD - XRY-PORTABLE CHEST XRAY EXAMINATION: XR PORTABLE CHEST CLINICAL INFORMATION: Increasing shortness of breath COMPARISON: 04/07/2018 TECHNIQUE: Portable frontal view of the chest was obtained. FINDINGS: Since the prior study, a right-sided pleural effusion has significantly increased; it is possible that a small subpulmonic left effusion could be present. No gross pulmonary edema is seen. Heart size is mildly enlarged. IMPRESSION: Increased size of right pleural effusion. This result was discussed with Dr. Wilson and it was ascertained that the content of the report was understood at the time of direct communication. Disposition Summary Disposition Principal Diagnosis: #1 diarrhea due to medication side effect. #2 atrial fibrillation with rapid ventricular rate. 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 #4 moderate mitral regurgitation. Additional Diagnosis: #5 COPD. #6 non-Hodgkin's lymphoma. #7 hypertension. Discharge Disposition: home or self care Discharge Instructions General Discharge Information Code Status: Full Code Patient's Diet: Heart healthy diet. Patient's Activity: As tolerated. Follow-Up Instructions/Appts: Please follow-up with your primary care practitioner within 1 week of discharge. Please follow up with the pastoral worker within 1 week of discharge. Continue taking medications as prescribed. Medications at Discharge Discharge Medications: Continue taking these medications: Iron,Carbonyl (Feosol) (Unknown Strength) TABLET Unknown Dose ORAL DAILY Comments: PER PT Hydrochlorothiazide (Hydrochlorothiazide) 12.5 MG CAPSULE 1 Capsule ORAL DAILY Qty = 30 Comments: PER PT Candesartan Cilexetil (Candesartan Cilexetil) (Unknown Strength) TABLET Unknown Dose Qty = 90 Comments: PER PT DISCONTINUED 12/2016 Nicotine (Nicoderm Cq) 14 MG/24 HOUR PATCH.TD24 1 Patch On the skin DAILY Comments: PER PT Multivitamin (Multi-Day Vitamins) 1 EACH TABLET 1 Tablet ORAL DAILY Comments: PER PT Metoprolol Succinate (Metoprolol Succinate) 50 MG TAB.ER.24H 1 Tablet ORAL DAILY Qty = 90 Apixaban (Eliquis) 5 MG TABLET 1 Tablet ORAL TWICE DAILY Qty = 180 Fluticasone/Vilanterol (Breo Ellipta 200-25 Mcg INH) 200 MCG-25 MCG/DOSE BLST.W.DEV Qty = 60 Umeclidinium [place] (Incruse Ellipta) 62.5 MCG/ACTUATION BLST.W.DEV Qty = 30 Start taking the following new medications: Doxycycline Hyclate (Vibramycin) 100 MG CAPSULE 1 Capsule ORAL TWICE DAILY Qty = 20 No Refills Prednisone (Deltasone) 20 MG TABLET 1 Tablet ORAL DAILY Qty = 3 No Refills Copies To: Oni QUINTANA,Lorenzo
[2018-04-10 14:40] VITALS: BP 130/98
[2018-04-10 22:01] VITALS: BP 144/90
[2018-04-11 06:54] VITALS: BP 130/70
[2018-04-11 08:17] VITALS: BP 124/70
[2018-04-11 08:25] LABS: ABSOLUTE BASOPHIL COUNT 0 /CUMM (0.0-0.2); ABSOLUTE EOSINOPHIL COUNT 0.3 /CUMM (0.0-0.7); ABSOLUTE GRANULOCYTE CT 5.2 /CUMM (1.4-6.5); ABSOLUTE LYMPH COUNT 0.7 /CUMM (1.2-3.4); ABSOLUTE MONOCYTE COUNT 0.4 /CUMM (0.10-0.60); BASOPHIL % 0 % (0.0-2.0); EOSINOPHIL % 4.3 % (0-5); GRANULOCYTE % 79.8 % (42.2-75.2); HEMATOCRIT 37.2 % (37-47); MEAN CORPUSCULAR HGB 20.9 PG (27.0-31.0); MEAN CORPUSCULAR HGB CONC 31.1 G/DL (33.0-37.0); MEAN CORPUSCULAR VOLUME 67.2 FL (81.0-99.0); MEAN PLATELET VOLUME 8.5 FL (7.4-10.4); PLATELET COUNT 272 /CUMM (130-400); RBC DISTRIBUTION WIDTH 18.5 % (11.5-14.5); RED BLOOD CELL CT 5.54 /CUMM (4.20-5.40); WHITE BLOOD CELL COUNT 6.5 /CUMM (4.8-10.8)
--- NOTE | 2018-04-11 09:11 | PN- Housestaff ---
Clary QUINTANA,[facility] 04/11/18 0911: Subjective Follow-up For: A fib with RVR Tele-Events Since Last Visit: Atrial fibrillation Heart rate 67-108. Subjective: Patient is single comfortably, denies any active complaints. Review of Systems Constitutional: Reports: no symptoms. EENTM: Reports: no symptoms. Cardiovascular: Reports: no symptoms. Respiratory: Reports: no symptoms. Gastrointestinal: Reports: no symptoms. Genitourinary: Reports: no symptoms. Musculoskeletal: Reports: no symptoms. Skin: Reports: no symptoms. Neurological/Psychological: Reports: no symptoms. Hematologic/Endocrine: Reports: no symptoms. Immunologic/Allergic: Reports: no symptoms. Objective Last 24 Hrs of Vital Signs/I&O Vital Signs Date Time Temp Pulse Resp B/P B/P Pulse O2 O2 Flow FiO2 Mean Ox Delivery Rate 04/11 0948 94 Room Air 04/11 0817 84 124/70 04/11 0816 84 124/70 04/11 0800 94 Room Air 04/11 0654 98.6 75 20 130/70 92 Room Air 04/10 2201 97.6 108 19 144/90 95 04/10 2053 130/78 04/10 2024 92 Room Air 04/10 1858 98 126/84 04/10 1600 Room Air Intake & Output 04/11 1600 04/11 0800 04/11 0000 Intake Total 200 Output Total Balance 200 Intake, Oral 200 Patient 172 lb Weight Physical Exam General Appearance: Alert, Oriented X3, Cooperative Skin: No Rashes, No Breakdown Cardiovascular: Normal S1, Normal S2, irregularly irregular Lungs: Clear to Auscultation, Normal Air Movement Abdomen: Normal Bowel Sounds, Soft, No Tenderness Extremities: No Clubbing, No Cyanosis Current Medications: Current Medications Sig/Noreen Start time Last Medication Dose Route Stop Time Status Admin Acetaminophen 325 MG Q6P PRN 04/07 2330 AC PO Albuterol Sulfate 3 ML Q4P PRN 04/08 1130 DC INH Albuterol Sulfate 2 PUF Q4P PRN 04/07 2345 AC INH Apixaban 5 MG BID 04/07 2330 AC 04/11 PO 0816 Benzonatate 100 MG TIDPRN PRN 04/10 1100 AC PO Digoxin 0.5 MG Q6 04/10 1200 DC 04/10 IV 04/10 1801 1858 Guaifenesin 10 ML Q6P PRN 04/10 1045 AC 04/10 PO 2211 Ipratropium [place] 2.5 ML Q4P PRN 04/08 1130 DC INH Losartan Potassium 25 MG DAILY 04/09 1030 AC 04/11 PO 0816 Metoprolol Tartrate 25 MG BID 04/09 1018 AC 04/11 PO 0817 Nicotine 7 MG Q24 04/08 0900 AC 04/11 TOP 0817 Tiotropium [place] 1 PUF DAILY 04/08 0900 AC 04/11 INH 0817 Last 24 Hrs of Lab/Benny Results Last 24 Hrs of Labs/Mics: Laboratory Tests 04/11/18 0650: Anion Gap 11, Estimated GFR > 60, BUN/Creatinine Ratio 14.3, CBC w Diff NO MAN DIFF REQ, RBC 5.54 H, MCV 67.2 L, MCH 20.9 L, MCHC 31.1 L, RDW 18.5 H, MPV 8.5, Gran % 79.8 H, Lymphocytes % 10.0 L, Monocytes % 5.9, Eosinophils % 4.3, Basophils % 0, Absolute Granulocytes 5.2, Absolute Lymphocytes 0.7 L, Absolute Monocytes 0.4, Absolute Eosinophils 0.3, Absolute Basophils 0 Assessment/Plan Assessment: Ms Mckeon is a 77-year-old female with past medical history of non-Hodgkin's lymphoma status post chemotherapy in September 2017, atrial fibrillation on metoprolol/Eliquis, COPD not on home oxygen, presented to the emergency department on March with chief complaint of diarrhea relating to the start of metoprolol along with generalized weakness and fatigue. Problem list #1 diarrhea/generalized weakness. * She came with chief complaint of diarrhea, correlated with the start of metoprolol. * continues to have diarrhea in spite of different formulation of metoprolol. * Will discharge home on current dose of metoprolol * C. difficile cultures sent, continue to follow. * If C. difficile negative, can use Imodium to control diarrhea. * plenty of fluids by mouth #2 Atrial fibrillation with rapid ventricular rate * Continue metoprolol and add digoxin 0.125 mg daily. * Continue losartan * Continue Eliquis 5 mg twice a day. #3 Tachycardia induced cardiomyopathy * Echocardiogram showed EF of 30-35%, right ventricular hypokinesia with moderate to severe mitral regurgitation. * Rate control is very significant at this stage, continue to maintain heart rate less than 100. * Repeat echo at a later point. * eventual outpatient nuclear stress test. DVT prophylaxis Eliquis + ALPS Heart Healthy Diet Full Code Problem List: 1. Atrial fibrillation Pain Ratin Pain Location: None Pain Goal: Remain pain free Pain Plan: NA Tomorrow's Labs & Rationales: None Frederic Wallace MD 04/11/18 1322: Attending MD Review Statement Attending Statement Attending MD Statement: examined this patient, discuss w/resident/PA/METAL SPRAY OPERATOR, agreed w/resident/PA/METAL SPRAY OPERATOR, discussed with family, reviewed EMR data (avail), discussed with nursing, discussed with case mgmt, reviewed images, amended to note Attending Assessment/Plan: Patient was seen and examined and plan discussed with the resident, pt followed by the patrol captain, cardiac meds optimization done and pt is being cleared for discharge. Patient would continue with digoxin 0.152 mg daily, continue on metoprolol, continue on Eliquis, continue on losartan and follow-up with the patrol captain within 1 week after discharge. Pain Location: None Pain Goal: Remain pain free Pain Plan: NA Tomorrow's Labs & Rationales: None Frederic Wallace MD 04/11/18 1322: Attending MD Review Statement Attending Statement Attending MD Statement: examined this patient, discuss w/resident/PA/METAL SPRAY OPERATOR, agreed w/resident/PA/METAL SPRAY OPERATOR, discussed with family, reviewed EMR data (avail), discussed with nursing, discussed with case mgmt, reviewed images, amended to note Attending Assessment/Plan: Patient was seen and examined and plan discussed with the resident, pt followed by the patrol captain, cardiac meds optimization done and pt is being cleared for discharge. Patient would continue with digoxin 0.152 mg daily, continue on metoprolol, continue on Eliquis, continue on losartan and follow-up with the patrol captain within 1 week after discharge.
--- NOTE | 2018-04-11 09:54 | PN- Cardiology ---
Subjective Subjective: * Doing much better. No diarrhea today. No chest discomfort, shortness of breath or lightheadedness. * atrial fibrillation with controlled heart rate Objective Vital Signs and I&Os Vital Signs Date Time Temp Pulse Resp B/P B/P Pulse O2 O2 Flow FiO2 Mean Ox Delivery Rate 04/11 0948 94 Room Air 04/11 0817 84 124/70 04/11 0816 84 124/70 04/11 0654 98.6 75 20 130/70 92 Room Air 04/10 2201 97.6 108 19 144/90 95 04/10 2053 130/78 04/10 202 92 Room Air 04/10 1858 98 126/84 04/10 1600 Room Air 04/10 1440 97.9 65 20 130/98 93 Room Air 04/10 1342 120 120/64 04/10 1131 93 Room Air Room Air Intake & Output 04/11 1600 04/11 0800 04/11 0000 04/10 1600 04/10 0800 04/10 0000 Intake Total 200 750 440 300 Output Total 400 Balance 200 350 440 300 Intake, Oral 200 750 440 300 Number 3 Bowel Movements Output, Urine 400 Patient 172 lb 173 lb Weight Weight Bed scale Measurement Method Physical Exam: General: WD/overweight female in NAD; alert and oriented x 3 HEENT: NC/AT, PERRL, EOMI Neck: no JVD, no carotid bruit Heart: irregularly irregular with 2/6 systolic murmur Lungs: clear bilaterally Abdomen: soft, NT, +ve bowel sounds Extremities: no edema Assessment/Plan Assessment/Plan * Atrial fibrillation with controlled heart rate on current medications. In consideration of her low EF I would continue digoxin at 0.125mg daily. Continue her current dose of Metoprolol. The patient likely has atrial fibrillation due to her mitral valve disease. * Continue Eliquis for stroke prophylaxis. * Continue Losartan for afterload reduction and to minimize her MR. * Okay for discharge from a cardiac standpoint with follow up in the office in one week. Continue telemetry? No
[2018-04-11] MEDS ORDERED: DELTASONE20 MG PO (14:52)
[2018-04-11] MEDS ORDERED: VIBRAMYCIN100 MG PO (14:52)
[2018-04-11] MEDS ORDERED: DIGOXIN125 MCG PO ×2 (15:09→15:13)
== END 2018-04-11 16:05 | DRG 309 ==
LOC: ERH 12:59 → 1NO 20:58 → ERHI 20:58 → 1NO 20:58 → ENRESERV 04-08 04:51 → 1NO 04-08 05:12 → ENPENDDIS 04-11 13:35 → ENTRNSPT 04-11 15:38 → EDTRNSPTSTS 04-11 15:59 → 1NO 04-11 16:05 → CMPTRNSPT 04-11 16:07
PROVIDERS: Internal Medicine; Physician Assistant Medical; Student in an Organized Health Care Education/Training Program
DX: I48.91 Unspecified atrial fibrillation (principal); K52.1 Toxic gastroenteritis and colitis; J44.9 Chronic obstructive pulmonary disease, unspecified; I34.0 Nonrheumatic mitral (valve) insufficiency; D50.9 Iron deficiency anemia, unspecified; F17.210 Nicotine dependence, cigarettes, uncomplicated; R00.0 Tachycardia, unspecified; R05 Cough; Z79.01 Long term (current) use of anticoagulants; Z85.72 Personal history of non-Hodgkin lymphomas; Z92.21 Personal history of antineoplastic chemotherapy; Z88.1 Allergy status to other antibiotic agents; Z91.041 Radiographic dye allergy status; T44.7X5A Adverse effect of beta-adrenoreceptor antagonists, initial encounter; R53.1 Weakness
CPT/HCPCS: 1NP; ERO; 36415; 36592; 71045; 71046; 81003; 82436; 93005; 93010; 93306; 96374; 96376; 99291; J1160; J3490